=== PATIENT | female | born 1975 | race Caucasian/White ===

== ENCOUNTER 2020-07-08 06:42 | Outpatient (REF) | payer MEDICAID, OTHER, SELFPAY ==
[2020-07-08 08:49] LABS: MANUAL DIFF FLAG NO
[2020-07-08 08:54] LABS: Basophils Percent Auto 0.3 % (0-2); Eosinophils Absolute Auto 0.1 X10*3/uL (0.0-0.4); Eosinophils Percent Auto 1.5 % (0-4); Hematocrit 42.3 % (37-47); Hemoglobin 13.2 g/dl (12.0-16.0); Imm Gran Abs Auto 0.03 X10*3/uL (0.00-0.03); Imm Gran Pct Auto 0.4 % (0.0-0.4); Lymphocytes Absolute Auto 2.3 X10*3/uL (1.2-4.9); Lymphocytes Percent Auto 31.7 % (20-40); Mean Corpuscular HGB Conc 31.2 g/dl (31.0-35.0); Mean Corpuscular Hemoglobin 28.9 pg (27.0-33.0); Mean Corpuscular Volume 92.6 fL (80-98); Mean Platelet Volume 11.7 fL (9.4-12.3); Monocytes Absolute Auto 0.8 X10*3/uL (0.1-1.2); Monocytes Percent Auto 11.2 % (2-11); Neutrophils Percent Auto 54.9 % (45-73); Platelet Count 280 X10*3/uL (160-400); Red Blood Count 4.57 X10*6/uL (4.20-5.50); Red Cell Distribution Width 13.4 % (11.0-16.0); White Blood Count 7.3 X10*3/uL (4.8-10.8)
[2020-07-08 09:21] LABS: Alanine Aminotransferase 13 U/L (0-31); Alkaline Phosphatase 46 U/L (39-117); Anion Gap 13 (12-20); Aspartate Amino Transferase 17 U/L (5-31); Bilirubin Total 0.3 mg/dL (0.0-1.0); Blood Urea Nitrogen 15 mg/dL (9-16); Calcium 8.4 mg/dL (8.4-10.2); Carbon Dioxide 26 mmol/L (22-29); Chloride 105 mmol/L (96-108); Cholesterol 216 mg/dL; Estimated Glomerular Filt Rate > 60; Glucose Fasting 98 mg/dL (60-99); HDL Cholesterol 64 mg/dL; LDL Cholesterol Calculated 124 mg/dl; Potassium 4.1 mmol/l (3.3-5.1); Sodium 140 mmol/L (135-145); Total Protein 6.7 g/dL (6.5-8.0); Triglycerides 140 mg/dL
[2020-07-08 09:45] LABS: TSH reflex Free T4 3.74 mIU/mL (0.32-4.0); Vitamin D 25-OH Total 29.7 ng/mL (>30)
[2020-07-08 11:25] LABS: Erythrocyte Sedimentation Rate 5 MM/HR (0-20)
== END 2020-07-08 06:43 | disposition home or self-care (01) ==
LOC: HO.LAB 06:42
PROVIDERS: PCP Internal Medicine; Visit Provider Internal Medicine
DX: E78.00 Pure hypercholesterolemia, unspecified (principal); M79.7 Fibromyalgia; E55.9 Vitamin D deficiency, unspecified; E66.9 Obesity, unspecified
CPT/HCPCS: 36415; 80053; 80061; 82306; 84443; 85025; 85652

== ENCOUNTER 2020-08-13 08:53 | Outpatient (REF) | payer OTHER, SELFPAY ==
[2020-08-13 09:38] LABS: MANUAL DIFF FLAG NO
[2020-08-13 09:51] LABS: Basophils Percent Auto 0.5 % (0-2); Eosinophils Absolute Auto 0.2 X10*3/uL (0.0-0.4); Eosinophils Percent Auto 2.1 % (0-4); Hematocrit 40.5 % (37-47); Imm Gran Abs Auto 0.02 X10*3/uL (0.00-0.03); Imm Gran Pct Auto 0.3 % (0.0-0.4); Lymphocytes Absolute Auto 2.4 X10*3/uL (1.2-4.9); Lymphocytes Percent Auto 33.4 % (20-40); Mean Corpuscular HGB Conc 32.1 g/dl (31.0-35.0); Mean Corpuscular Volume 90.2 fL (80-98); Mean Platelet Volume 11.1 fL (9.4-12.3); Monocytes Absolute Auto 0.6 X10*3/uL (0.1-1.2); Monocytes Percent Auto 8.8 % (2-11); Neutrophils Percent Auto 54.9 % (45-73); Platelet Count 279 X10*3/uL (160-400); Red Blood Count 4.49 X10*6/uL (4.20-5.50); Red Cell Distribution Width 13.4 % (11.0-16.0); White Blood Count 7.3 X10*3/uL (4.8-10.8)
[2020-08-13 10:05] LABS: Glucose Urine UA NEG (NEG); Leukocyte Esterase Urine NEG (NEG); Nitrite Urine NEG (NEG); Specific Gravity - Urine 1.025 (1.005-1.025); Urine Blood TRACE (NEG); Urine Ketones NEG (NEG); Urine Protein NEG (NEG-TRACE)
[2020-08-13 10:16] LABS: Appearance Urine HAZY; Color Urine YELLOW
[2020-08-13 10:22] LABS: Alanine Aminotransferase 8 U/L (0-31); Albumin Level 3.8 g/dL (3.5-5.0); Alkaline Phosphatase 42 U/L (39-117); Anion Gap 12 (12-20); Aspartate Amino Transferase 13 U/L (5-31); Bilirubin Total 0.4 mg/dL (0.0-1.0); Blood Urea Nitrogen 16 mg/dL (9-16); Calcium 8.1 mg/dL (8.4-10.2); Carbon Dioxide 24 mmol/L (22-29); Chloride 106 mmol/L (96-108); Cholesterol 188 mg/dL; Estimated Glomerular Filt Rate > 60; Glucose Fasting 96 mg/dL (60-99); HDL Cholesterol 59 mg/dL; LDL Cholesterol Calculated 111 mg/dl; Potassium 4.5 mmol/l (3.3-5.1); Sodium 137 mmol/L (135-145); Total Protein 6.4 g/dL (6.5-8.0); Triglycerides 93 mg/dL
[2020-08-13 10:26] LABS: Mucus Urine 2+ /LPF; RBC Urine 0-2 /HPF (0); Squamous Epithelial Cell Urine 1+ /LPF; WBC Urine 0-2 /HPF (0-4)
[2020-08-13 10:36] LABS: Erythrocyte Sedimentation Rate 5 MM/HR (0-20)
[2020-08-13 10:44] LABS: TSH reflex Free T4 3.18 mIU/mL (0.32-4.0); Vitamin D 25-OH Total 38.8 ng/mL (>30)
== END 2020-08-13 08:54 | disposition home or self-care (01) ==
LOC: HO.LAB 08:53
PROVIDERS: PCP Internal Medicine; Visit Provider Internal Medicine
DX: M79.7 Fibromyalgia (principal); E78.00 Pure hypercholesterolemia, unspecified; E66.9 Obesity, unspecified; E55.9 Vitamin D deficiency, unspecified
CPT/HCPCS: 36415; 80053; 80061; 81001; 81003; 82306; 84443; 85025; 85652

== ENCOUNTER 2020-11-07 13:22 | Outpatient (REF) | payer OTHER, SELFPAY ==
--- NOTE | ~2020-11-07 | MM_ITS ---
EXAMINATION: MM SCREENING DIGITAL BREAST TOMOSYNTHESIS, BILATERAL CLINICAL INFORMATION: Screening. Asymptomatic. The lifetime risk of breast cancer based on the Tyrer-Cuzick Model is 10.4%. COMPARISON: Mammography: October 10, 2019 and October 04, 2018 TECHNIQUE: Digital breast tomosynthesis is performed in both the craniocaudal and mediolateral oblique views along with computer-aided detection (CAD). Synthesized 2D images are generated from the tomosynthesis. FINDINGS: The breasts are heterogeneously dense, which may obscure small masses (ACR BI-RADS breast composition Category c). There are no significant masses, abnormal calcifications, or other abnormalities. MM/MM tomosynthesis screening BI IMPRESSION: There are no significant changes from prior study. ASSESSMENT: BI-RADS 1: Negative RECOMMENDATION: Routine annual mammography screening. This patient's information was entered into a reminder system with a target due date for their next mammogram.
== END 2020-11-07 13:23 | disposition home or self-care (01) ==
LOC: HO.MAMMO 13:22
PROVIDERS: Visit Provider Internal Medicine
DX: Z12.31 Encounter for screening mammogram for malignant neoplasm of breast (principal)
CPT/HCPCS: 77063; 77067

== ENCOUNTER 2020-11-13 09:45 | Outpatient (REF) | payer OTHER, SELFPAY ==
--- NOTE | 2020-11-13 09:52 | EMG_ITS ---
This is a 45-year-old woman with bilateral lower extremity pain. PHYSICAL EXAMINATION: On examination, she is alert and oriented with normal intellectual functions. Her cranial nerves II through XII are normal. Muscle tone and strength are normal in all 4 extremities. Deep tendon reflexes symmetrical. Plantar responses are flexor. IMPRESSION: Rule out peripheral neuropathy, rule out lumbar radiculopathy. Nerve conduction EMG study: Normal electrodiagnostic study of both lower extremities. No evidence of generalized neuropathy or nerve entrapment. Normal EMG of the right L4-S1 innervated muscles. MD ARINA Tompkins/ROSE / [phone]
== END 2020-11-13 09:46 | disposition home or self-care (01) ==
LOC: HO.NEURO 09:45
PROVIDERS: Visit Provider Internal Medicine
DX: M79.604 Pain in right leg (principal); M79.605 Pain in left leg
CPT/HCPCS: 95885; 95912

== ENCOUNTER → 2021-01-21 09:43 | Outpatient (BNVA) | payer OTHER, SELFPAY | PROVIDERS: PCP Internal Medicine; Visit Provider Obstetrics & Gynecology ==

== ENCOUNTER 2021-03-06 07:44 | Outpatient (REF) | payer OTHER, SELFPAY ==
--- NOTE | ~2021-03-06 | XR_ITS ---
EXAMINATION: XR LUMBOSACRAL SPINE CLINICAL INFORMATION: M79.7 - Fibromyalgia COMPARISON: Radiographs lumbar spine 09/21/2019 TECHNIQUE: Three views of the lumbosacral spine. FINDINGS: There is normal lumbar segmentation with 5 nonrib-bearing lumbar vertebrae of normal height and normal lumbar lordosis. A gentle levocurvature is present similar to prior exam 2019. Bony mineralization is normal. There is no lumbar vertebral compression, spondylolisthesis, disc narrowing, or erosive changes. The SI joints and visualized sacrum are unremarkable. There are surgical clips again noted right upper quadrant abdomen likely from prior cholecystectomy. XR/XR lumbar spine 2-3V IMPRESSION: Unremarkable examination.
--- NOTE | ~2021-03-06 | XR_ITS ---
EXAMINATION: XR KNEE, RIGHT CLINICAL INFORMATION: M79.7 - Fibromyalgia COMPARISON: Radiographs right knee 09/21/2019 TECHNIQUE: Three views of the right knee. FINDINGS: No fracture, dislocation, destructive process. No suprapatellar effusion. Hoffa's fat pad appears normal. There is normal bony mineralization. No joint narrowing or erosive change or chondrocalcinosis. XR/XR knee RT 3V IMPRESSION: Normal right knee.
[2021-03-06 10:30] LABS: C Reactive Protein 0.28 mg/dL (< or = 0.50)
[2021-03-06 10:41] LABS: Rheumatoid Factor < 15.0 IU/mL (<15.0)
[2021-03-06 10:45] LABS: Thyroid Stimulating Hormone 2.01 uIU/mL (0.32-4.0)
[2021-03-06 11:43] LABS: Erythrocyte Sedimentation Rate 7 MM/HR (0-20)
[2021-03-08 00:11] LABS: ANA Titer 2 1:40 titer; Anti Nuclear Antibody Screen POSITIVE (NEGATIVE); Anti Nuclear Antibody Titer 1:40 titer
[2021-03-10 03:12] LABS: Vitamin D 25-OH, D2 <4 ng/mL; Vitamin D 25-OH, D3 26 ng/mL; Vitamin D 25-OH, Total 26 ng/mL (30-100)
[2021-03-10 17:17] LABS: Cyclic Citrullinated Peptide <16 UNITS
== END 2021-03-06 07:45 | disposition home or self-care (01) ==
LOC: HO.LAB 07:44
PROVIDERS: PCP Internal Medicine; Visit Provider Student in an Organized Health Care Education/Training Program
DX: M79.7 Fibromyalgia (principal)
CPT/HCPCS: 36415; 72100; 73562; 82306; 84443; 85652; 86038; 86039; 86140; 86200; 86431; 99202

== ENCOUNTER → 2021-04-16 11:59 | Outpatient (BNVA) | payer OTHER, SELFPAY | PROVIDERS: PCP Internal Medicine; Visit Provider Obstetrics & Gynecology ==

== ENCOUNTER 2021-04-17 07:42 | Outpatient (REF) | payer OTHER, SELFPAY ==
[2021-04-17 09:17] LABS: HCG Quantitative < 2 mIU/mL
[2021-04-18 13:51] LABS: Lutenizing Hormone 33.9 mIU/mL; Prolactin 7.3 ng/mL
== END 2021-04-17 07:43 | disposition home or self-care (01) ==
LOC: HO.LAB 07:42
PROVIDERS: PCP Internal Medicine; Visit Provider Obstetrics & Gynecology
DX: N91.2 Amenorrhea, unspecified (principal)
CPT/HCPCS: 36415; 83001; 83002; 84146; 84443; 84702

== ENCOUNTER → 2021-05-28 14:29 | Outpatient (BNVA) | payer OTHER, SELFPAY | PROVIDERS: PCP Internal Medicine; Visit Provider Obstetrics & Gynecology | DX: Z78.0 Asymptomatic menopausal state (principal) | CPT/HCPCS: 99212 ==

== ENCOUNTER 2021-06-17 09:30 | Outpatient (REF) | payer OTHER, SELFPAY ==
[2021-06-17 09:50] LABS: MANUAL DIFF FLAG NO
[2021-06-17 10:24] LABS: Basophils Percent Auto 0.4 % (0-2); Eosinophils Absolute Auto 0.1 X10*3/uL (0.0-0.4); Hematocrit 40.5 % (37-47); Hemoglobin 13.1 g/dl (12.0-16.0); Imm Gran Abs Auto 0.02 X10*3/uL (0.00-0.03); Imm Gran Pct Auto 0.3 % (0.0-0.4); Lymphocytes Absolute Auto 1.8 X10*3/uL (1.2-4.9); Lymphocytes Percent Auto 25.9 % (20-40); Mean Corpuscular HGB Conc 32.3 g/dl (31.0-35.0); Mean Corpuscular Hemoglobin 27.8 pg (27.0-33.0); Mean Platelet Volume 11.6 fL (9.4-12.3); Monocytes Absolute Auto 0.8 X10*3/uL (0.1-1.2); Monocytes Percent Auto 10.8 % (2-11); Neutrophils Absolute Auto 4.3 X10*3/uL (2.0-8.3); Neutrophils Percent Auto 60.6 % (45-73); Platelet Count 254 X10*3/uL (160-400); Red Blood Count 4.71 X10*6/uL (4.20-5.50); Red Cell Distribution Width 13.3 % (11.0-16.0)
[2021-06-17 10:30] LABS: Appearance Urine HAZY; Color Urine YELLOW; Glucose Urine UA NEG (NEG); Leukocyte Esterase Urine 1+ (NEG); Nitrite Urine NEG (NEG); Specific Gravity - Urine >= 1.030 (1.005-1.025); UACC Culture Trigger YES; Urine Blood TRACE (NEG); Urine Ketones NEG (NEG); Urine Protein TRACE MG/DL (NEG-TRACE)
[2021-06-17 10:35] LABS: Alanine Aminotransferase 35 U/L (0-31); Alkaline Phosphatase 75 U/L (39-117); Anion Gap 12 (12-20); Aspartate Amino Transferase 24 U/L (5-31); Bilirubin Total 0.4 mg/dL (0.0-1.0); Blood Urea Nitrogen 20 mg/dL (9-16); C Reactive Protein 0.42 mg/dL (< or = 0.50); Calcium 9.1 mg/dL (8.4-10.2); Carbon Dioxide 25 mmol/L (22-29); Chloride 107 mmol/L (96-108); Cholesterol 185 mg/dL; Estimated Glomerular Filt Rate > 60; Glucose Fasting 93 mg/dL (60-99); HDL Cholesterol 53 mg/dL; LDL Cholesterol Calculated 104 mg/dl; Potassium 4.7 mmol/L (3.3-5.1); Sodium 139 mmol/L (135-145); Total Protein 6.5 g/dL (6.5-8.0); Triglycerides 140 mg/dL
[2021-06-17 10:56] LABS: TSH reflex Free T4 3.91 uIU/mL (0.32-4.0)
[2021-06-17 10:57] LABS: Bacteria Urine TRACE /LPF; Mucus Urine 1+ /LPF; RBC Urine 0-2 /HPF (0); Squamous Epithelial Cell Urine 3+ /LPF
[2021-06-17 11:44] LABS: Erythrocyte Sedimentation Rate 7 MM/HR (0-20)
== END 2021-06-17 09:31 | disposition home or self-care (01) ==
LOC: HO.LAB 09:30
PROVIDERS: PCP Internal Medicine; Visit Provider Internal Medicine
DX: Z00.00 Encounter for general adult medical examination without abnormal findings (principal); N95.0 Postmenopausal bleeding; N84.1 Polyp of cervix uteri; M25.50 Pain in unspecified joint; E78.00 Pure hypercholesterolemia, unspecified; M79.7 Fibromyalgia
CPT/HCPCS: 36415; 57500; 80053; 80061; 81001; 84443; 85025; 85652; 86140; 87086; 88305; 99212

== ENCOUNTER → 2021-07-03 08:45 | Outpatient (BNVA) | payer OTHER, SELFPAY | PROVIDERS: PCP Internal Medicine; Visit Provider Nurse Practitioner Family | DX: M79.7 Fibromyalgia (principal) | CPT/HCPCS: 99212 ==

== ENCOUNTER 2021-07-30 09:50 | Outpatient (REF) | payer OTHER, SELFPAY ==
--- NOTE | ~2021-07-30 | US_ITS ---
EXAMINATION: US PELVIS CLINICAL INFORMATION: Postmenopausal bleeding COMPARISON: None TECHNIQUE: Ultrasound of the pelvis is performed using both transabdominal and transvaginal transducers along with Doppler. Transvaginal imaging is performed due to inadequate visualization transabdominally. FINDINGS: UTERUS: The uterus is anteverted, retroflexed and measures 11.5 cm in length, 4.2 cm in AP and 7.9 cm in transverse dimension. The uterus has a slight arcuate shape. The double wall endometrial thickness is 1.0 cm. The uterus is smooth in contour and has normal myometrial echogenicity. No visible fibroid. There are several nabothian cysts seen in the cervix. ADNEXA: Both ovaries are visualized. There is normal color flow to the adnexa. There is no ovarian torsion. There is no pelvic ascites or fluid collection. Right ovary measures 2.7 x 1.7 x 1.8 cm. Volume of 4.3 mL. Left ovary measures 2.9 x 2.2 x 3.7 cm. Volume 12.4 mL. There is an anechoic cyst measuring 1.3 x 0.9 x 1.1 cm. There is no echogenic free fluid. US/US pelvic and transvaginal IMPRESSION: Anteverted and retroflexed uterus with slightly arcuate shape. No focal lesion seen. Several nabothian cysts in the cervix. Simple cyst left ovary. Small amount of free fluid in the cul-de-sac.
== END 2021-07-30 09:51 | disposition home or self-care (01) ==
LOC: HO.US 09:50
PROVIDERS: PCP Internal Medicine; Visit Provider Obstetrics & Gynecology
DX: N95.0 Postmenopausal bleeding (principal)
CPT/HCPCS: 76830; 76856

== ENCOUNTER → 2021-08-13 12:25 | Outpatient (BNVA) | payer OTHER, SELFPAY | PROVIDERS: PCP Internal Medicine; Visit Provider Obstetrics & Gynecology | DX: N84.1 Polyp of cervix uteri (principal); N95.0 Postmenopausal bleeding | CPT/HCPCS: 99212 ==

== ENCOUNTER 2021-09-02 14:00 | Outpatient (RCR) | payer OTHER, SELFPAY ==
--- NOTE | 2021-08-27 08:49 | MHC.PT.EP ---
[facility] [place] [facility] [place] [facility] [place] [facility] [address] Vivienne Koo [address] [phone] F: [phone] F: [phone] F: [phone] F: [phone] Physical Therapy Plan of Care Date of Evaluation: Date of Surgery: Diagnosis: Dorsalgia Assessment: Pt is a 45 y/o female referred to PT for unspecified dorsalgia who presents with decreased tolerance for heavy HH chores, sitting, standing and walking for duration, as well as disturbed sleep secondary to generalized hip and trunk weakness, lethargic, sedentary lifestyle and mild trunk ROM restrictions. Pt is deemed an appropriate candidate to receive skilled PT in order to address her physical limitations to improve her functional ability. Frequency and Duration: The patient will be seen 2 x / wk x 4 ws. Short Term Goals: initiate HEP with evidence of compliance. Pt will report baseline pain with activity < 8/10; initial: Pt reports 8/10 at rest and 10/10 with activity. Detention Goals: I with HEP and light aerobic home program as indicated for fibromyalgia patients with generalized pain. Pt will report 1/4 disturbed night sleep d/t back pain; initial: 3/4 disturbed. (Kevin) Pt will report pain prevents me from walking long distances ; initial: pain prevents me from walking even long distances (Kevin) Treatment Plan: Modalities to reduce pain, spasms and effusion. Manual therapy to restore motion and function. Therapeutic exercise to improve strength and flexibility. Neuromuscular re-education for posture and balance. Therapeutic activities to return to functional activities of daily living. Electronically signed by: Dung Dia PT. Please sign and return to therapist. Thank you for your referral.
--- NOTE | 2022-03-26 08:52 | MHC.PT.DC ---
[facility] [place] Office [place] Office [place] Office [address] Vivienne Koo [address] [phone] F: [phone] F: [phone] F: [phone] F: [phone] Physical Therapy Discharge Report Diagnosis: Dorsalgia Date of Surgery: Date of Evaluation: 07/31/21 Date of Discharge: 03/26/22 Treatments to Date: 5 Cancellations to Date: 2 No Shows to Date: 2 Discharge Status: Patient Elected to Stop Visit Non-compliance Discharge Summary: 09/02: Improving komal for ther ex; some improvement in upper back comfort with shoulder flexion activities which were significantly limited against gravity; decreased general komal continues though komal a basic program well. Discussed talking about a home TENS unis with her MD may be appropriate as this is her greatest source of pain relief at this time. Issued yellow TB with forearm loops for HEP. Pt demonstrates continued discomfort with B shoulder flexion, decreased motivation to perform challenging exercises d/t discomfort or fear of discomfort, Pt reports Estim helps her Sx; 2 visits to DC anticipated as she awaits abdominal surgery next month. Electronically signed by: Dung Dia PT. Please sign and return to therapist. Thank you for your referral.
== END 2022-03-26 08:52 | disposition home or self-care (01) ==
LOC: HO.PTCHIC 14:00
PROVIDERS: PCP Internal Medicine; Visit Provider Nurse Practitioner Family
DX: M54.9 Dorsalgia, unspecified (principal)
CPT/HCPCS: 97014; 97110; 97140; 97161

== ENCOUNTER → 2021-09-17 13:24 | Outpatient (BNVA) | payer OTHER, SELFPAY | PROVIDERS: PCP Internal Medicine; Visit Provider Obstetrics & Gynecology | DX: Z01.818 Encounter for other preprocedural examination (principal); N95.0 Postmenopausal bleeding | CPT/HCPCS: 99212 ==

== ENCOUNTER 2021-09-19 08:47 | Day surgery (SDC) | payer OTHER, SELFPAY ==
[2021-09-12 12:53] VITALS: BMI 33.0
--- NOTE | 2021-09-18 08:25 | P.CONAN_ITS ---
Documented by User: Kaykay Ascencio NP 09/18/21 08:26 HPI - Anesthesia Eval Consult details Narrative: 45yo F for D&C Hysteroscopy possible polypectomy,possible myomectomy PMFSH Active Problems Active Problems: All Active Problems (Updated 06/17/21 @ 11:01 by Timothy Cisse MD) Endocervical polyp (Acute) Postmenopausal bleeding (Acute) Annual physical exam (Acute) Menopause (Acute) Amenorrhea (Acute) Well woman exam (Acute) Low back pain (Acute) Lower extremity pain, bilateral (Acute) Tinea corporis (Acute) Obesity (BMI 30-39.9) (Acute) Depression (Acute) Anxiety (Acute) Posttraumatic stress disorder (Acute) Insomnia (Acute) Fibromyalgia (Acute) Vitamin D deficiency (Acute) Pure hypercholesterolemia (Acute) Past Medical History Medical History Anxiety Depression Fibromyalgia Insomnia Low back pain Lower extremity pain, bilateral Obesity (BMI 30-39.9) Posttraumatic stress disorder Pure hypercholesterolemia Tinea corporis Vitamin D deficiency Family History Family History Father Alcohol abuse Mother Asthma Chronic mental illness Surgical History Surgical History H/O unilateral salpingectomy History of section History of cholecystectomy History of facial surgery Social History Social History Housing: Apartment Alcohol intake: never Patient Tobacco Use Status: Never used Tobacco e-Cigarette/Vaping Use: Never Used Second Hand Smoke Exposure: No Advance Directives: No Advance Directives Information Provided: Yes Advance Directives on File: No service: No Current occupational status: retired [employer] Allergies Allergy/AdvReac Type Severity Reaction Status Date / Time tramadol [From ULTRA] Allergy Severe ANAPHYLAXIS Verified 09/19/21 10:15 Home Medications Medication Instructions Recorded Confirmed Last Taken Type amitriptyline 100 mg tablet 100 mg PO BEDTIME 07/09/20 09/12/21 Unknown History hydroxyzine pamoate 25 mg capsule 25 mg PO TID 07/09/20 09/12/21 Unknown History sertraline 100 mg tablet 200 mg PO DAILY tab 07/09/20 09/12/21 Unknown History zolpidem 10 mg tablet 10 mg PO BEDTIME PRN 07/09/20 09/12/21 Unknown History Exam Exam Date and Time: September 18, 2021 0825 Height,Weight and Vital Signs: Height 5 ft 7 in Weight 95.708 kg Pertinent Lab Results Pertinent Lab Results: Laboratory Tests 06/17/21 06/17/21 09:48 09:48 WBC 7.0 Hgb 13.1 Hct 40.5 Plt Count 254 Sodium 139 Potassium 4.7 Chloride 107 Carbon Dioxide 25 BUN 20 H Creatinine 0.99 Assessment and Plan Assessment Anesthesia Assessment: Chart Reviewed Documented by User: Marissa Jordan MD 09/19/21 10:58 PMFSH Active Problems Active Problems: All Active Problems (Updated 06/17/21 @ 11:01 by Timothy Cisse MD) Endocervical polyp (Acute) Postmenopausal bleeding (Acute) Annual physical exam (Acute) Menopause (Acute) Amenorrhea (Acute) Well woman exam (Acute) Low back pain (Acute) Lower extremity pain, bilateral (Acute) Tinea corporis (Acute) Obesity (BMI 30-39.9) (Acute) Depression (Acute) Anxiety (Acute) Posttraumatic stress disorder (Acute) Insomnia (Acute) Fibromyalgia (Acute) Vitamin D deficiency (Acute) Pure hypercholesterolemia (Acute) Increased BMI Past Medical History Medical History Anxiety Depression Fibromyalgia Insomnia Low back pain Lower extremity pain, bilateral Obesity (BMI 30-39.9) Posttraumatic stress disorder Pure hypercholesterolemia Tinea corporis Vitamin D deficiency Family History Family History Father Alcohol abuse Mother Asthma Chronic mental illness Family history of problems with anesthesia: No Surgical History Surgical History H/O unilateral salpingectomy History of section History of cholecystectomy History of facial surgery History of Problems with Anesthesia: No Social History Social History Housing: Apartment Alcohol intake: never Patient Tobacco Use Status: Never used Tobacco e-Cigarette/Vaping Use: Never Used Second Hand Smoke Exposure: No Advance Directives: No Advance Directives Information Provided: Yes Advance Directives on File: No service: No Current occupational status: retired Meds Allergies Allergy/AdvReac Type Severity Reaction Status Date / Time tramadol [From ULTRAM] Allergy Severe ANAPHYLAXIS Verified 09/19/21 10:15 Home Medications Medication Instructions Recorded Confirmed Last Taken Type amitriptyline 100 mg tablet 100 mg PO BEDTIME 07/09/20 09/12/21 Unknown History hydroxyzine pamoate 25 mg capsule 25 mg PO TID 07/09/20 09/12/21 Unknown History sertraline 100 mg tablet 200 mg PO DAILY tab 07/09/20 09/12/21 Unknown History zolpidem 10 mg tablet 10 mg PO BEDTIME PRN 07/09/20 09/12/21 Unknown History Exam Height,Weight and Vital Signs: Height 5 ft 7 in Weight 95.708 kg Vital Signs Temp Pulse Resp BP Pulse Ox 09/19/21 10:01 98.2 F 57 16 132/83 100 Pertinent Lab Results Pertinent Lab Results: Laboratory Tests 06/17/21 06/17/21 09:48 09:48 WBC 7.0 Hgb 13.1 Hct 40.5 Plt Count 254 Sodium 139 Potassium 4.7 Chloride 107 Carbon Dioxide 25 BUN 20 H Creatinine 0.99 Lab Results 09/19/21 Range/Units 09:54 Urine Test NEGATIVE (NEGATIVE) Airway Mallampati Class: II TM Dist: >3cm Neck ROM: Full Loose/Missing/Broken Teeth: Yes (Missing molar top right) Heart: RRR Lungs: CTAB Assessment and Plan Assessment Anesthesia Assessment: Anesthesia Plan Discussed Final Anesthetic Review Family History of Problems with Anesthesia: No History of Problems with Anesthesia: No NPO: Yes ASA Class: II Final Preanesthetic Review: No Changes in Pt Med Stat, Meds/Allgs Chart Reviewed, Consent Obtained/Reviewed and Anes Risks/Benef Reviewed Patient Risk: Low Procedure Risk: Low Assessment/Block/Sedation in SS: Assess/Block/Sedation-SS Anesthetic Plan Anesthetic Plan: GA (Patient preference) Disposition: Standard PACU
[2021-09-19] VITALS (8 sets, daily range): BP systolic 109–132; BP diastolic 68–87; PULSE 54–70; RESP 16–18; TEMP 36.1–36.8; O2SAT 95–100
[2021-09-19 10:08] LABS: UPreg QC Valid YES; Urine Pregnancy NEGATIVE (NEGATIVE)
[2021-09-19] MEDS: Lactated Ringers 1,000 ML 100 ML IVCONT (10:15)
--- NOTE | 2021-09-19 10:54 | MHC.SHP ---
Pre-Procedural Eval Section A Date of Service: 09/19/21 The patient is an INPATIENT: No Changes since office visit: No Cold of Flu in the past 2 weeks, No New Medical Problems, No Changes in Medication and No Patient answered all questions The History & Physical has been completed within 30 days and I have reviewed it.: Yes Section B Chief Complaint: postmenopausal bleeding Allergies: Allergies Allergy/AdvReac Type Severity Reaction Status Date / Time tramadol [From ULTRAM] Allergy Severe ANAPHYLAXIS Verified 09/19/21 10:15 Plan Diagnosis/Plan: Unchanged I have reviewed the history and physical and performed a pertinent physical examination on my patient. No changes have occurred unless specified.
--- NOTE | 2021-09-19 12:33 | P.BOP_ITS ---
Brief Operative Note Date of Service: 09/19/21 Pre-op diagnosis: postmenopausal bleeding Post-op diagnosis: same ( normal endometrial cavity) Procedure: Hysteroscopy D&C, Polypectomy Surgeon: Timothy Cisse MD Anesthesia: MAC Was an Corrosion Engineer used for this Procedure?: No Estimated blood loss (mL): 0 Pathology: other (Endometrial Scrapping) Condition: stable Disposition: PACU
--- NOTE | 2021-09-19 12:34 | P.OP_ITS ---
Operative Note Operative Note Date of Service: 09/19/21 Narrative: Preop Diagnosis: Post Menopausal bleeding Operation: Diagnostic Hysteroscopy, Dilataion & Curettage Post Op Diagnosis: Normal endometrial cavity QBL: Minimal Anesthesia: MAC Surgeon: Timohty Cisse MD Machine Learning Intern: None Complication: None Pathology: Endometrial Scrapings Procedure: The patient was put in the dorsal lithotomy position, scrubbed, and draped in the usual manner. A sterile speculum was inserted in the patient's vagina. The anterior lip of the cervix was grasped with a single tooth tenaculum. The cervix was dilated up to 5 mm, then the scope was inserted in the patient's uterus. Inspection revealed Normal endometrial cavity. The Myosure Reach device was used; . At the end of the procedure, all instruments were taken out of the patient uterine and vaginal cavity. The single tooth tenaculum was removed and homeostasis was assured using pressure,. The patient tolerated the procedure well and was transferred to the PACU in a stable condition.
== END 2021-09-19 14:45 | disposition home or self-care (01) ==
PROVIDERS: PCP Internal Medicine; Visit Provider Obstetrics & Gynecology
PROC: 0UDB8ZZ Extraction of Endometrium, Via Natural or Artificial Opening Endoscopic (ICD-10-PCS; CPT 58558; principal; 2021-09-19 11:40)
DX: N95.0 Postmenopausal bleeding (principal); F41.8 Other specified anxiety disorders; F43.10 Post-traumatic stress disorder, unspecified; E78.00 Pure hypercholesterolemia, unspecified; M79.7 Fibromyalgia; G47.00 Insomnia, unspecified; E55.9 Vitamin D deficiency, unspecified; M54.50 Low back pain, unspecified; E66.9 Obesity, unspecified; Z68.33 Body mass index [BMI] 33.0-33.9, adult; Z79.899 Other long term (current) drug therapy; Z88.8 Allergy status to other drugs, medicaments and biological substances; Z90.49 Acquired absence of other specified parts of digestive tract
CPT/HCPCS: 58558; 81025; 88305; J1885; J2250; J2405; J3010

== ENCOUNTER → 2021-10-06 11:18 | Outpatient (BNVA) | payer OTHER, SELFPAY | PROVIDERS: Visit Provider Obstetrics & Gynecology ==

== ENCOUNTER 2021-10-22 14:16 | Emergency (ER) | payer OTHER, SELFPAY ==
[2021-10-22 14:49] VITALS: BP 125/64; BP 140/100; PULSE 76; PULSE 98; RESP 18; TEMP 36.5; O2SAT 97; O2SAT 98; BMI 31.3
--- NOTE | 2021-10-22 15:01 | ED.DENTAL ---
HPI - Dental/Oral General Chief complaint: Dental/Oral Stated complaint: BLEEDING FROM TOOTH EXTRACTION,THINNERS UNK Time Seen by Provider: 10/22/21 14:56 Source: patient and EMS Mode of arrival: EMS Limitations: language barrier (Serbian-speaking) History of Present Illness HPI Narrative: 46-year-old female who is now status post dental extraction possibly her 3rd molar right upper aspect presenting to the ED via EMS with complaints of bleeding with clots from the extraction site that started prior to arrival while she was at [employer] paying for the stuff that she had just bought. She reports that she was seen at [facility] on [address] by Dr[address] Chapa the oral surgeon and there was no complications. She reports that she did not fall or have any injuries and she did not smoke or drink from a straw. She denies any other complaints or concerns at this time. Related Data Home Medications Medication Instructions Recorded Confirmed amitriptyline 100 mg tablet 100 mg PO BEDTIME 07/09/20 09/12/21 hydroxyzine pamoate 25 mg capsule 25 mg PO TID 07/09/20 09/12/21 sertraline 100 mg tablet 200 mg PO DAILY tab 07/09/20 09/12/21 zolpidem 10 mg tablet 10 mg PO BEDTIME PRN 07/09/20 09/12/21 Previous Rx's Medication Instructions Recorded clotrimazole 1 % topical cream 1 applic TOPICAL BID 14 Days #45 g 07/09/20 (Lotrimin AF (clotrimazole)) cholecalciferol (vitamin D3) 50 50 mcg PO DAILY 90 Days #90 cap 06/13/21 mcg (2,000 unit) capsule naproxen 500 mg tablet 500 mg PO BID PRN 30 Days #60 tab 06/13/21 diazepam 5 mg tablet 5 mg PO TID PRN 30 Days #90 tab 10/01/21 Allergies Allergy/AdvReac Type Severity Reaction Status Date / Time tramadol [From [facility]] Allergy Severe ANAPHYLAXIS Verified 09/19/21 10:15 Review of Systems Review of Systems: Constitutional : No Fever, No Chills, No changes in PO intake, No difficulty speaking, no recent dental procedure, no heat or cold intolerance while eating, no recent face trauma, ENT/Mouth : + Dental pain with bleeding, No Sore throat, No Jaw pain, No throat swelling, No swallowing difficulty, no change in voice, No facial swelling, no drooling, no trismus, no bleeding, no lacerations, no tongue swelling, gum swelling, Eyes: No Eye Pain, No periorbital Swelling Cardiovascular : No Chest Pain, No SOB Respiratory : No Cough, No Sputum, No Wheezing, No Smoke Exposure, No Dyspnea Gastrointestinal : No Nausea, No Vomiting, No Diarrhea Genitourinary : No Dysuria Musculoskeletal : No Myalgias Skin : No rash, no facial swelling or redness, Neuro : No Weakness, No Numbness, No Headache Yes all other systems are reviewed and are negative [facility] Past Medical History Attestation statement: The following information was validated with the patient. Medical History Anxiety Depression Fibromyalgia Insomnia Low back pain Lower extremity pain, bilateral Obesity (BMI 30-39.9) Posttraumatic stress disorder Pure hypercholesterolemia Tinea corporis Vitamin D deficiency Surgical History H/O unilateral salpingectomy History of section History of cholecystectomy History of facial surgery Family History Family History Father Alcohol abuse Mother Asthma Chronic mental illness Social History Social History Housing: Apartment Alcohol intake: never Patient Tobacco Use Status: Never used Tobacco e-Cigarette/Vaping Use: Never Used Second Hand Smoke Exposure: No Advance Directives: No Advance Directives Information Provided: No Patient : No service: No Current occupational status: retired Physical Exam Vital Signs: Vital Signs: Last Vital Signs Temp 97.7 F 10/22/21 14:49 Pulse 76 10/22/21 14:49 Resp 18 10/22/21 14:49 BP 125/64 10/22/21 14:49 Pulse Ox 97 10/22/21 14:49 BMI result Body Mass Index 31.3 vital signs have been reviewed as normal and appeared to be correct. Blood pressure normal. Heart rate normal. Respiration rate normal. Temperature normal. Oxygen saturation normal. Appearance: Alert. Oriented X3. No acute distress. Head: Normal external exam. Normocephalic. Atraumatic. Eyes: PERRLA. EOMI. Conjunctiva and sclera normal. Eyelids normal. ENT: EAC normal. TM's Normal. Pharynx normal. Uvula midline. Moist mucous membranes. No trismus noted. No drooling noted. No muffled voice noted. Dentition: To the 3rd molar right upper aspect patient has and extracted 2 with bleeding from the site with clots. Gingival within normal limits. No fluctuance. Not consistent with peritonsillar abscess. Not consistent with dental abscess. No salivary duct obstruction noted. Neck: Normal inspection. Neck supple. FROM. No adenopathy. Thyroid Normal. No meningeal signs. No neck mass noted. Trachea midline. CVS: Normal heart rate and rhythm. Heart sound normal. No murmurs noted. Pulses normal throughout. Respiratory: No respiratory distress. Painless inspiration. Breath sounds normal. No wheezes/rales/rhonchi noted. Chest nontender. No accessory muscle usage noted or decreased air movement noted. Back: Full range of motion noted. Skin: Skin warm and dry. Normal skin color. Normal skin turgor. No rashes/lesions/lacerations noted. Extremities:Extremities exhibit normal range of motion. Extremities nontender. Neuro: Oriented X 3. No motor deficit. No sensory deficit. Reflexes normal. Course Course Course Narrative: 3:30pm - 46-year-old female who is now status post dental extraction possibly her 3rd molar right upper aspect presenting to the ED via EMS with complaints of bleeding with clots from the extraction site that started prior to arrival while she was at [employer] paying for the stuff that she had just bought. She reports that she was seen at [facility] on [address] Dr[address] Chapa the oral surgeon and there was no complications. She reports that she did not fall or have any injuries and she did not smoke or drink from a straw. She denies any other complaints or concerns at this time. On exam patient is bleeding from the dental extraction site with clots. We placed Surgicel in the bleeding is now controlled. I spoke to the oral surgeon Dr. Chapa reported that he can see her today if not she will have to follow up tomorrow morning. Therefore we are trying to get the patient arrived as she does not have a ride at this time and the taxi reports that they will take approximately 1 hour. [facility] - Dental/Oral Medical Records Attestation: I reviewed the patient's medical records. Discharge Plan Discharge Clinical Impression: Oral bleeding, Pain, dental Patient Disposition: Home, Self-Care Prescriptions: No Action diazepam 5 mg tablet 5 mg PO TID PRN (Reason: anxiety) 30 Days Qty: 90 0RF amitriptyline 100 mg tablet 100 mg PO BEDTIME 0RF zolpidem 10 mg tablet 10 mg PO BEDTIME PRN (Reason: Insomnia) 0RF sertraline 100 mg tablet 200 mg PO DAILY 0RF hydroxyzine pamoate 25 mg capsule 25 mg PO TID 0RF clotrimazole [Lotrimin AF (clotrimazole)] 1 % cream 1 applic topical BID 14 Days Qty: 45 1RF cholecalciferol (vitamin D3) 50 mcg (2,000 unit) capsule 50 mcg PO DAILY 90 Days Qty: 90 3RF naproxen 500 mg tablet 500 mg PO BID PRN (Reason: pain) 30 Days Qty: 60 1RF Rx Instructions: Take with food Referrals: Charles Way MD [Primary Care Provider] - 2 days Print Language: Serbian
== END 2021-10-22 16:32 | disposition home or self-care (01) ==
PROVIDERS: Emergency Provider Internal Medicine; PCP Internal Medicine
DX: K91.840 Postprocedural hemorrhage of a digestive system organ or structure following a digestive system procedure (principal); K08.89 Other specified disorders of teeth and supporting structures
CPT/HCPCS: 99282; 99283

== ENCOUNTER 2021-11-10 13:45 | Outpatient (REF) | payer OTHER, SELFPAY ==
--- NOTE | ~2021-11-10 | MM_ITS ---
EXAMINATION: MM SCREENING DIGITAL BREAST TOMOSYNTHESIS, BILATERAL CLINICAL INFORMATION: Screening. Asymptomatic. The lifetime risk of breast cancer based on the Tyrer-Cuzick Model is 8%. COMPARISON: Mammography: 11/07/2020, 10/10/2019, 10/04/2018 TECHNIQUE: Digital breast tomosynthesis is performed in both the craniocaudal and mediolateral oblique views along with computer-aided detection (CAD). Synthesized 2D images are generated from the tomosynthesis. FINDINGS: There are scattered areas of fibroglandular density (ACR BI-RADS breast composition Category b). There are no significant masses, abnormal calcifications, or other abnormalities. There is fine fibronodular parenchymal pattern. No developing density. Incidental intramammary node again seen posterior upper outer right breast. No significant changes. MM/MM tomosynthesis screening BI IMPRESSION: No mammographic evidence of malignancy. ASSESSMENT: BI-RADS 2: Benign RECOMMENDATION: Routine annual mammography screening. This patient's information was entered into a reminder system with a target due date for their next mammogram.
== END 2021-11-10 13:46 | disposition home or self-care (01) ==
LOC: HO.MAMMO 13:45
PROVIDERS: Visit Provider Internal Medicine
DX: Z12.31 Encounter for screening mammogram for malignant neoplasm of breast (principal)
CPT/HCPCS: 77063; 77067

== ENCOUNTER 2021-11-27 14:13 | Outpatient (REF) | payer OTHER, SELFPAY ==
--- NOTE | ~2021-11-27 | XR_ITS ---
EXAMINATION: XR CHEST CLINICAL INFORMATION: Syncope and collapse COMPARISON: None TECHNIQUE: 2 views of the chest were obtained. FINDINGS: The cardiac and mediastinal contours are normal. There is a 4 mm left upper lobe nodule. This may represent a granuloma. The lungs are otherwise clear. There is no pleural effusion or pneumothorax. Bony structures are unremarkable. XR/XR chest 2V IMPRESSION: No evidence for acute disease in the chest. 4 mm left upper lobe nodule, question representing a granuloma.
--- NOTE | 2021-11-27 14:21 | ECG_ITS ---
Test Reason : R55 Blood Pressure : / mmHG Vent. Rate : 060 BPM Atrial Rate : 060 BPM P-R Int : 136 ms QRS Dur : 086 ms QT Int : 414 ms P-R-T Axes : 033 058 048 degrees QTc Int : 414 ms Normal sinus rhythm Normal ECG No previous ECGs available Referred By: Terry Raza Electronically Signed By:SORIN HEREDIA
[2021-11-27 14:50] LABS: MANUAL DIFF FLAG NO
[2021-11-27 15:05] LABS: Basophils Absolute Auto 0.1 X10*3/uL (0.0-0.2); Basophils Percent Auto 0.9 % (0-2); Eosinophils Absolute Auto 0.3 X10*3/uL (0.0-0.4); Eosinophils Percent Auto 4.9 % (0-4); Hematocrit 40.7 % (37.0-47.0); Imm Gran Abs Auto 0.01 X10*3/uL (0.00-0.03); Imm Gran Pct Auto 0.1 % (0.0-0.4); Lymphocytes Absolute Auto 2.9 X10*3/uL (1.2-4.9); Lymphocytes Percent Auto 42.9 % (20-40); Mean Corpuscular HGB Conc 31.9 g/dl (31.0-35.0); Mean Corpuscular Hemoglobin 27.8 pg (27.0-33.0); Mean Platelet Volume 10.8 fL (9.4-12.3); Monocytes Absolute Auto 0.8 X10*3/uL (0.1-1.2); Monocytes Percent Auto 12.1 % (2-11); Neutrophils Absolute Auto 2.6 x10*3/uL (2.0-8.3); Neutrophils Percent Auto 39.1 % (45-73); Platelet Count 320 X10*3/uL (160-400); Red Blood Count 4.68 X10*6/uL (4.20-5.50); Red Cell Distribution Width 13.4 % (11.0-16.0); White Blood Count 6.8 X10*3/uL (4.8-10.8)
[2021-11-27 15:37] LABS: Alanine Aminotransferase 57 U/L (0-31); Albumin Level 4.4 g/dL (3.5-5.0); Alkaline Phosphatase 91 U/L (39-117); Anion Gap 10 (12-20); Aspartate Amino Transferase 35 U/L (5-31); Bilirubin Total 0.5 mg/dL (0.0-1.0); Blood Urea Nitrogen 19 mg/dL (9-16); Calcium 10.1 mg/dL (8.4-10.2); Carbon Dioxide 29 mmol/L (22-29); Chloride 106 mmol/L (96-108); Estimated Glomerular Filt Rate > 60; Glucose Random 84 mg/dL (60-115); Potassium 4.1 mmol/L (3.3-5.1); Sodium 141 mmol/L (135-145); Total Protein 7.2 g/dL (6.5-8.0)
[2021-11-27 15:55] LABS: Appearance Urine HAZY; Color Urine YELLOW; Glucose Urine UA NEG (NEG); Leukocyte Esterase Urine 1+ (NEG); Nitrite Urine NEG (NEG); Specific Gravity - Urine >= 1.030 (1.005-1.025); UACC Culture Trigger YES; Urine Blood 3+ (NEG); Urine Ketones NEG (NEG); Urine Protein 1+ MG/DL (NEG-TRACE)
[2021-11-27 15:58] LABS: TSH reflex Free T4 1.24 uIU/mL (0.32-4.0)
[2021-11-27 16:08] LABS: Bacteria Urine 1+ /LPF; Squamous Epithelial Cell Urine 1+ /LPF
== END 2021-11-27 14:14 | disposition home or self-care (01) ==
LOC: HO.LAB 14:13
PROVIDERS: PCP Internal Medicine; Visit Provider Nurse Practitioner Family
DX: R55 Syncope and collapse (principal); R42 Dizziness and giddiness; I10 Essential (primary) hypertension
CPT/HCPCS: 36415; 71046; 80053; 81001; 84443; 85025; 87086; 93005

== ENCOUNTER 2021-12-05 14:32 | Outpatient (REF) | payer OTHER, SELFPAY ==
[2021-12-08 04:09] LABS: HBS Num1 11.17 mIU/mL (0-7.99); HBc Num1 0.11 S/CO (0.00-0.79); Hepatitis B Core Antibody Nonreactive (Nonreactive)
[2021-12-08 04:20] LABS: HBsAGNum1 0.19 S/CO (0.00-0.99); Hepatitis B Surface Antigen Negative (Negative)
[2021-12-08 04:50] LABS: HBS Num2 11.26 mIU/mL (0-7.99); HBS Num3 11.71 mIU/mL (0-7.99); ~Hepatitis B Surface Antibody GRAYZONE (Nonreactive)
[2021-12-09 04:46] LABS: Mumps Virus IgG Antibody >300.00 AU/mL; Rubella IgG Antibody 6.13 Index; Rubeola IgG (Measles) >300.00 AU/mL; Varicella IgG Antibody <135.00 index
== END 2021-12-05 14:33 | disposition home or self-care (01) ==
LOC: HO.LAB 14:32
PROVIDERS: PCP Internal Medicine; Visit Provider Internal Medicine
DX: Z01.84 Encounter for antibody response examination (principal)
CPT/HCPCS: 36415; 86704; 86706; 86735; 86762; 86765; 86787; 87340

== ENCOUNTER 2022-02-11 07:41 | Outpatient (REF) | payer OTHER, SELFPAY ==
--- NOTE | ~2022-02-11 | CT_ITS ---
EXAMINATION: CT CHEST WITHOUT CONTRAST CLINICAL INFORMATION: Pulmonary nodule COMPARISON: Previous chest x-ray October 2021 TECHNIQUE: Multidetector volumetric CT imaging of the chest was done. Axial MIP volume rendering provided. Sagittal and coronal reformatted images were obtained. This CT examination was performed using dose optimization techniques as appropriate, variously including the following: *Automated exposure control *Adjustment of mA and/or kV according to patient size (this includes techniques or standardized protocols for targeted exams where dose is matched to indication/reason for exam; i.e. extremities or head) *Use of iterative reconstruction technique DLP: 146 mGy-cm FINDINGS: LUNGS: There is a 4 mm calcified left upper lobe nodule axial image 105 series 7 probably representing a calcified granuloma. The lungs are otherwise clear. No evidence of emphysema, interstitial lung disease or bronchiectasis is seen. No endobronchial or endotracheal lesion. MEDIASTINUM: There are small left hilar calcifications probably representing calcified lymph nodes. No enlarged lymph nodes are seen. The mediastinum is otherwise normal. PLEURA: There is no pleural effusion. No pleural mass or thickening. AXILLA: No lymphadenopathy. UPPER ABDOMEN: The gallbladder has been removed. The left kidney is not seen. OSSEOUS STRUCTURES: Unremarkable. CT/CT chest wo con IMPRESSION: 4 mm calcified left upper lobe nodule and a small left hilar calcifications suggestive of small calcified lymph nodes. Findings are consistent with old granulomatous disease. No CT imaging follow-up recommended. Fleischner guidelines were followed.
== END 2022-02-11 07:42 | disposition home or self-care (01) ==
LOC: HO.CT 07:41
PROVIDERS: PCP Internal Medicine; Visit Provider Nurse Practitioner Family
DX: R91.1 Solitary pulmonary nodule (principal)
CPT/HCPCS: 71250

== ENCOUNTER 2022-03-04 11:01 | Outpatient (REF) | payer OTHER, SELFPAY ==
--- NOTE | ~2022-03-04 | XR_ITS ---
EXAMINATION: XR SHOULDER, RIGHT CLINICAL INFORMATION: Pain. COMPARISON: None TECHNIQUE: AP external rotation, Grashey, scapular Y, and axillary views of the right shoulder. FINDINGS: Mild subchondral erosive changes right AC joint. Minimal inferior glenohumeral joint loose body is seen as well. No visible acute fracture, spurring, dislocation or soft tissue calcification. XR/XR shoulder RT min 2V IMPRESSION: Mild degenerative changes right AC joint and right glenohumeral joint.
== END 2022-03-04 11:02 | disposition home or self-care (01) ==
LOC: HO.XRAY 11:01
PROVIDERS: PCP Internal Medicine; Visit Provider Nurse Practitioner Family
DX: M25.511 Pain in right shoulder (principal); M79.7 Fibromyalgia; M54.50 Low back pain, unspecified; G89.29 Other chronic pain
CPT/HCPCS: 73030; 99212

== ENCOUNTER 2022-04-16 14:01 | Emergency (ER) | payer MEDICAID, OTHER, SELFPAY ==
[2022-04-16 15:07] VITALS: BP 144/84; PULSE 60; RESP 18; TEMP 36.7; O2SAT 98; BMI 31.3
== END 2022-04-16 19:20 | disposition left against medical advice (07) ==
PROVIDERS: Emergency Provider Emergency Medicine; PCP Internal Medicine
DX: S61.216A Laceration without foreign body of right little finger without damage to nail, initial encounter (principal); W27.4XXA Contact with kitchen utensil, initial encounter; Y93.G1 Activity, food preparation and clean up; Y92.000 Kitchen of unspecified non-institutional (private) residence as the place of occurrence of the external cause; Y99.9 Unspecified external cause status
CPT/HCPCS: 99281; 99283

== ENCOUNTER 2022-04-30 13:00 | Outpatient (RCR) | payer MEDICAID, OTHER, SELFPAY ==
[2022-04-09 13:00] VITALS: BP 123/79; PULSE 67; O2SAT 95
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
--- NOTE | 2022-07-28 10:46 | MHC.PT.DC ---
[facility] [place] Office [place] Office [place] Office [address] Vivienne Koo [address] [phone] F: [phone] F: [phone] F: [phone] F: [phone] Physical Therapy Discharge Report Diagnosis: PAIN IN RIGHT SHOULDER Date of Surgery: Date of Evaluation: 04/09/22 Date of Discharge: 07/28/22 Treatments to Date: 4 Cancellations to Date: 3 No Shows to Date: 4 Discharge Status: Visit Non-compliance Discharge Summary: Pt HAD POOR ATTENDANCE AND DECR CARRYOVER W HEP. SHE DID NOT MEET HER PT GOALS AND WAS NOT REASSESSED DUE TO POOR ATTENDANCE W SCHED APPTS. Electronically signed by: VARSHA JAIME,PT Please sign and return to therapist. Thank you for your referral.
== END 2022-07-28 10:46 | disposition home or self-care (01) ==
LOC: HO.PT 13:00
PROVIDERS: PCP Internal Medicine; Visit Provider Nurse Practitioner Family
DX: M25.511 Pain in right shoulder (principal)
CPT/HCPCS: 97110; 97140; 97162; 97530

== ENCOUNTER 2022-05-13 10:49 | Outpatient (REF) | payer MEDICAID, OTHER, SELFPAY ==
--- NOTE | ~2022-05-13 | US_ITS ---
EXAMINATION: US PELVIS CLINICAL INFORMATION: Hypertrophy of uterus. COMPARISON: Previous exams most recent July 2021 TECHNIQUE: Ultrasound of the pelvis is performed using both transabdominal and transvaginal transducers along with Doppler. Transvaginal imaging is performed due to inadequate visualization transabdominally. Exam is limited due to body habitus. FINDINGS: The uterus is anteverted and retroflexed and measures 11.7 x 4.8 x 5.9 cm in dimension. No focal uterine lesion is seen. Endometrium is not not well visualized. Endometrial thickness is estimated at 0.4 cm. The right ovary is seen transabdominally only. The right ovary measures 2.8 x 2 x 2.8 cm and is unremarkable. The left ovary is not seen. There is no fluid in the pelvis. US/US pelvic and transvaginal IMPRESSION: Limited exam. Normal-appearing uterus and right ovary. Left ovary not seen.
== END 2022-05-13 10:50 | disposition home or self-care (01) ==
LOC: HO.US 10:49
PROVIDERS: Visit Provider Obstetrics & Gynecology
DX: N85.2 Hypertrophy of uterus (principal)
CPT/HCPCS: 76830; 76856

== ENCOUNTER → 2022-05-27 09:46 | Outpatient (BNVA) | payer MEDICAID, OTHER, SELFPAY | PROVIDERS: PCP Internal Medicine; Visit Provider Obstetrics & Gynecology | DX: N85.2 Hypertrophy of uterus (principal) | CPT/HCPCS: 99212 ==

== ENCOUNTER 2022-06-02 07:42 | Outpatient (REF) | payer MEDICAID, OTHER, SELFPAY ==
[2022-06-02 07:59] LABS: MANUAL DIFF FLAG NO
[2022-06-02 08:33] LABS: Basophils Percent Auto 0.4 % (0-2); Eosinophils Absolute Auto 0.3 X10*3/uL (0.0-0.4); Eosinophils Percent Auto 3.5 % (0-4); Hematocrit 41.6 % (37.0-47.0); Hemoglobin 13.5 g/dl (12.0-16.0); Imm Gran Abs Auto 0.02 X10*3/uL (0.00-0.03); Imm Gran Pct Auto 0.3 % (0.0-0.4); Lymphocytes Absolute Auto 2.7 X10*3/uL (1.2-4.9); Mean Corpuscular HGB Conc 32.5 g/dl (31.0-35.0); Mean Corpuscular Hemoglobin 27.8 pg (27.0-33.0); Mean Corpuscular Volume 85.6 fL (80.0-98.0); Mean Platelet Volume 10.8 fL (9.4-12.3); Monocytes Absolute Auto 0.8 X10*3/uL (0.1-1.2); Monocytes Percent Auto 10.4 % (2-11); Neutrophils Absolute Auto 3.5 x10*3/uL (2.0-8.3); Neutrophils Percent Auto 48.4 % (45-73); Platelet Count 272 X10*3/uL (160-400); Red Blood Count 4.86 X10*6/uL (4.20-5.50); Red Cell Distribution Width 13.1 % (11.0-16.0); White Blood Count 7.2 X10*3/uL (4.8-10.8)
[2022-06-02 08:56] LABS: Alanine Aminotransferase 21 U/L (0-31); Albumin Level 4.4 g/dL (3.5-5.0); Alkaline Phosphatase 85 U/L (39-117); Anion Gap 15 (12-20); Aspartate Amino Transferase 23 U/L (5-31); Bilirubin Total 0.4 mg/dL (0.0-1.0); Blood Urea Nitrogen 17 mg/dL (9-16); Calcium 9.7 mg/dL (8.4-10.2); Carbon Dioxide 26 mmol/L (22-29); Chloride 101 mmol/L (96-108); Cholesterol 208 mg/dL; Estimated Glomerular Filt Rate 59; Glucose Fasting 97 mg/dL (60-99); HDL Cholesterol 64 mg/dL; LDL Cholesterol Calculated 132 mg/dl; Potassium 4.1 mmol/L (3.3-5.1); Sodium 138 mmol/L (135-145); Triglycerides 63 mg/dL
[2022-06-07 15:16] LABS: Vitamin D 25-OH, D2 <4 ng/mL; Vitamin D 25-OH, D3 31 ng/mL; Vitamin D 25-OH, Total 31 ng/mL (30-100)
== END 2022-06-02 07:43 | disposition home or self-care (01) ==
LOC: HO.LAB 07:42
PROVIDERS: Absent Provider Nurse Practitioner Family; PCP Internal Medicine; Visit Provider Internal Medicine
DX: E78.00 Pure hypercholesterolemia, unspecified (principal); F32.9 Major depressive disorder, single episode, unspecified; F41.9 Anxiety disorder, unspecified; R91.1 Solitary pulmonary nodule; I10 Essential (primary) hypertension
CPT/HCPCS: 36415; 80053; 80061; 82306; 85025

== ENCOUNTER → 2022-06-16 14:38 | Outpatient (BNVA) | payer OTHER, SELFPAY | PROVIDERS: PCP Internal Medicine; Referring Provider Internal Medicine; Visit Provider Internal Medicine | DX: Z12.11 Encounter for screening for malignant neoplasm of colon (principal) | CPT/HCPCS: 99202 ==

== ENCOUNTER 2022-09-08 14:10 | Emergency (ER) | payer OTHER, SELFPAY ==
[2022-09-08 14:34] VITALS: BP 127/88; PULSE 71; RESP 18; TEMP 36.6; O2SAT 98; BMI 32.3
--- NOTE | 2022-09-08 14:34 | ED.SKABFB ---
HPI - Skin/Abscess/Foreign Bdy General Chief complaint: General Medical <MARGARITA Velazquez - Last Filed: 09/08/22 14:38> Stated complaint: Allergic reaction <MARGARITA Velazquez - Last Filed: 09/08/22 14:38> Time Seen by Provider: 09/08/22 15:37 <MARGARITA Velazquez - Last Filed: 09/08/22 14:38> Source: patient <Leslie Barber CNP - Last Filed: 09/08/22 16:33> Mode of arrival: ambulatory <Leslie Barber CNP - Last Filed: 09/08/22 16:33> Limitations: language barrier (Dutch-speaking medical laboratory technicians utilized) <Leslie Barber CNP - Last Filed: 09/08/22 16:33> History of Present Illness HPI narrative: Patient is a 46-year-old female who presents to emergency department for evaluation of a rash. She reports a pruritic rash of onset 3-4 days ago. When she takes Benadryl the rash resolves, but they do tend to reappear. They have been diffusely throughout her body to her arms chest back abdomen and legs. Denies any known contact allergens, new soaps/detergents/lotions/cream, recent use of new medications, new foods. Denies any history of this having occurred in the past. Denies any recent viral infection. Denies fevers, chills chest pain, shortness breath, difficulty breathing hoarseness of the voice, arthralgias. <Leslie Barber CNP - Last Filed: 09/08/22 16:33> Related Data Home medications: Home Medications Medication Instructions Recorded Confirmed amitriptyline 100 mg tablet 100 mg PO BEDTIME 07/09/20 06/16/22 hydroxyzine pamoate 25 mg capsule 25 mg PO TID 07/09/20 06/16/22 sertraline 100 mg tablet 200 mg PO DAILY 07/09/20 06/16/22 Previous Rx's Medication Instructions Recorded clotrimazole 1 % topical cream 1 applic topical BID rash 2 weeks 07/09/20 (Lotrimin AF (clotrimazole)) #45 grams cholecalciferol (vitamin D3) 50 50 mcg PO DAILY 90 days #90 caps 06/13/21 mcg (2,000 unit) capsule meclizine 25 mg tablet 25 mg PO DAILY PRN motion sickness 11/27/21 #10 tabs diazepam 5 mg tablet 5 mg PO TID PRN anxiety 30 days 04/14/22 #90 tabs naproxen 500 mg tablet 500 mg PO BID PRN pain 30 days #60 06/16/22 tabs loratadine 10 mg tablet 10 mg PO DAILY PRN allergic 09/08/22 symptoms #30 tabs prednisone 20 mg tablet 40 mg PO DAILY #8 tabs 09/08/22 <MARGARITA Velazquez - Last Filed: 09/08/22 14:38> Allergies/Adverse reactions: Allergies Allergy/AdvReac Type Severity Reaction Status Date / Time tramadol [From [facility]] Allergy Severe ANAPHYLAXIS Verified 06/16/22 14:52 <MARGARITA Velazquez - Last Filed: 09/08/22 14:38> Review of Systems Review of Systems: Skin: Positive rashes noted in HPI <Leslie Barber CNP - Last Filed: 09/08/22 16:33> Yes all other systems are reviewed and are negative <Leslie Barber CNP - Last Filed: 09/08/22 16:33> PMFSH Past Medical History Attestation statement: The following information was validated with the patient. <Leslie Barber CNP - Last Filed: 09/08/22 16:33> Source: old records reviewed <Leslie Barber CNP - Last Filed: 09/08/22 16:33> Medical History: Medical History Anxiety Depression Fibromyalgia Insomnia Low back pain Lower extremity pain, bilateral Obesity (BMI 30-39.9) Posttraumatic stress disorder Pure hypercholesterolemia Tinea corporis Vitamin D deficiency <MARGARITA Velazquez - Last Filed: 09/08/22 14:38> Surgical History: Surgical History H/O unilateral salpingectomy History of section History of cholecystectomy History of facial surgery <MARGARITA Velazquez - Last Filed: 09/08/22 14:38> Family History Family History: Family History Father Alcohol abuse Mother Asthma Chronic mental illness Mental health disorder <MARGARITA Velazquez - Last Filed: 09/08/22 14:38> Social History Social History: Social History Housing: Apartment Alcohol intake: never Patient Tobacco Use Status: Never used Tobacco e-Cigarette/Vaping Use: Never Used Second Hand Smoke Exposure: No Advance Directives: No Advance Directives Information Provided: Yes service: No Current occupational status: retired Cognitive needs: No Hearing needs: No Vision needs: Yes (Glasses) <MARGARITA Velazquez - Last Filed: 09/08/22 14:38> Physical Exam Vital Signs: Vital Signs: Last Vital Signs Temp 98 F 09/08/22 14:34 Pulse 71 09/08/22 14:34 Resp 18 09/08/22 14:34 BP 127/88 09/08/22 14:34 Pulse Ox 98 09/08/22 14:34 BMI result Body Mass Index 32.3 <MARGARITA Velazquez - Last Filed: 09/08/22 14:38> Vital Signs: Last Vital Signs Temp 98 F 09/08/22 14:34 Pulse 71 09/08/22 14:34 Resp 18 09/08/22 14:34 BP 127/88 09/08/22 14:34 Pulse Ox 98 09/08/22 14:34 BMI result Body Mass Index 32.3 <Leslie Barber CNP - Last Filed: 09/08/22 16:33> Appearance: Alert.?Oriented to person, place and time. No acute distress.?Normal affect. Eyes: Pupils equal, round and reactive to light.? ENT: Pharynx normal, no hypertrophy, uvula midline.?? Neck: Normal inspection.? Neck supple.?? CVS: Heart sounds normal. Normal heart rate and rhythm.? Pulses normal.?? Respiratory: No respiratory distress.? Lung sounds clear to auscultation bilaterally?? Abdomen: Soft and non-tender. Normoactive bowel sounds. ? Skin: Skin warm and dry.? Normal skin color.? Single urticarial lesion present to the right upper extremity? Extremities: No lower extremity edema.? Neuro: Moves all extremities spontaneously. Sensation intact bilaterally. Ambulates with normal steady gait. <Leslie Barber CNP - Last Filed: 09/08/22 16:33> Course Course Course Narrative: RME - 46 yo female presenting with diffuse itchy body rash for the last 3-4 days. Showed pictures of hives on extremities, unknown cause. No respiratory compromise or facial involvement. VSS. stable to go back to waiting <MARGARITA Velazquez - Last Filed: 09/08/22 14:38> Medical Decision Making Medical Decision Making MDM Narrative: Patient is a 46-year-old female presents to the emergency department for evaluation of a reoccurring rash. Pruritic in nature, upon physical examination has a single urticarial lesion to the right upper extremity, patient has shown pictures of previous rash lesions that appear consistent with urticaria. No respiratory involvement, no distress. No anaphylaxis or angioedema. Speaking clear full sentences. No identifiable allergen based on history. Lesions do resolve with the use of Benadryl but this makes her drowsy. Discussed plan of care for discharge home, use of loratadine daily despite whether symptoms are present, burst therapy of prednisone sent to her pharmacy. Advised to contact her primary care provider to arrange for a follow-up visit for persistent symptoms, advised that she may require referral to ice resurfacing machine operators should this persist. Discussed worrisome signs and symptoms that would warrant re-evaluation in the emergency department. All questions answered. She is stable for discharge. <Leslie Barber CNP - Last Filed: 09/08/22 16:33> Differential Diagnosis Differential Diagnoses: The differential diagnosis associated with the presentation includes (Idiopathic urticaria, drug reaction, viral exanthem) <Leslie Barber CNP - Last Filed: 09/08/22 16:33> Prescription Management I considered prescription management with: Other (Loratadine, prednisone) <Leslie Barber CNP - Last Filed: 09/08/22 16:33> Discharge Plan Discharge Clinical Impression: Urticaria <MARGARITA Velazquez - Last Filed: 09/08/22 14:38> Patient Disposition: Home, Self-Care <MARGARITA Velazquez - Last Filed: 09/08/22 14:38> Instructions: Urticaria (ED) <MARGARITA Velazquez - Last Filed: 09/08/22 14:38> Additional Instructions: Take prednisone daily for the next 4 days as prescribed. In addition, take Claritin daily whether hives are present or not. As we discussed, your rash appears consistent with hives which can be due to an allergy, viral infection, or idiopathic/of unknown cause. You will need to contact your primary care provider to arrange for a follow-up visit, at that time they can help you establish care with an ice resurfacing machine operators if this problem continues. You may return to emergency department with any new or worsening symptoms or concerns such as throat swelling, hoarseness of your voice, chest pain, shortness of breath, difficulty breathing. <MARGARITA Velazquez - Last Filed: 09/08/22 14:38> Prescriptions: New prednisone 20 mg tablet 40 mg PO DAILY Qty: 8 0RF loratadine 10 mg tablet 10 mg PO DAILY PRN (Reason: allergic symptoms) Qty: 30 0RF No Action diazepam 5 mg tablet 5 mg PO TID PRN (Reason: anxiety) 30 Days Qty: 90 0RF amitriptyline 100 mg tablet 100 mg PO BEDTIME sertraline 100 mg tablet 200 mg PO DAILY hydroxyzine pamoate 25 mg capsule 25 mg PO TID clotrimazole [Lotrimin AF (clotrimazole)] 1 % cream 1 applic topical BID 14 Days Qty: 45 1RF cholecalciferol (vitamin D3) 50 mcg (2,000 unit) capsule 50 mcg PO DAILY 90 Days Qty: 90 3RF naproxen 500 mg tablet 500 mg PO BID PRN (Reason: pain) 30 Days Qty: 60 1RF Rx Instructions: Take with food meclizine 25 mg tablet 25 mg PO DAILY PRN (Reason: motion sickness) Qty: 10 0RF <MARGARITA Velazquez - Last Filed: 09/08/22 14:38> Referrals: Charles Way MD [Primary Care Provider] - <MARGARITA Velazquez - Last Filed: 09/08/22 14:38>
== END 2022-09-08 16:36 | disposition home or self-care (01) ==
PROVIDERS: Emergency Provider Emergency Medicine Emergency Medical Services; PCP Internal Medicine
DX: L50.9 Urticaria, unspecified (principal)
CPT/HCPCS: 99282; 99283

== ENCOUNTER → 2022-11-20 07:02 | Outpatient (BNVA) | payer OTHER, SELFPAY | PROVIDERS: PCP Internal Medicine; Visit Provider Nurse Practitioner Family | DX: M79.7 Fibromyalgia (principal); M19.011 Primary osteoarthritis, right shoulder | CPT/HCPCS: 99212 ==

== ENCOUNTER 2022-12-03 10:46 | Outpatient (REF) | payer OTHER, SELFPAY ==
--- NOTE | ~2022-12-03 | MM_ITS ---
EXAMINATION: MM SCREENING DIGITAL BREAST TOMOSYNTHESIS, BILATERAL CLINICAL INFORMATION: Screening. Asymptomatic. The lifetime risk of breast cancer based on the Tyrer-Cuzick Model is 8%. COMPARISON: Mammography: November 10, 2021 and studies dating back to October 04, 2018 TECHNIQUE: Digital breast tomosynthesis is performed in both the craniocaudal and mediolateral oblique views along with computer-aided detection (CAD). Synthesized 2D images are generated from the tomosynthesis. FINDINGS: The breasts are heterogeneously dense, which may obscure small masses (ACR BI-RADS breast composition Category c). There are no significant masses, abnormal calcifications, or other abnormalities. MM/MM tomosynthesis screening BI IMPRESSION: No significant changes from prior exam. ASSESSMENT: BI-RADS 1: Negative RECOMMENDATION: Routine annual mammography screening. This patient's information was entered into a reminder system with a target due date for their next mammogram.
== END 2022-12-03 10:47 | disposition home or self-care (01) ==
LOC: HO.MAMMO 10:46
PROVIDERS: PCP Internal Medicine; Visit Provider Internal Medicine
DX: Z12.31 Encounter for screening mammogram for malignant neoplasm of breast (principal)
CPT/HCPCS: 77063; 77067

== ENCOUNTER 2022-12-24 14:00 | Outpatient (RCR) | payer OTHER, SELFPAY ==
--- NOTE | 2022-12-01 15:23 | MHC.PT.EP ---
[facility] [place] Office [place] Office [place] Office [address] [phone] F: [phone] F: [phone] F: [phone] F: [phone] Physical Therapy Plan of Care Date of Evaluation: Date of Surgery: Diagnosis: RIGHT shoulder adhesive capsulitis Assessment: Patient is a 47 y.o. female who is referred to PT by Dr. Charles Way MD, with Dx of RIGHT shoulder adhesive capsulitis. PT diagnosis is consistent with MD Dx, questionable supraspinatus involvement underlying the adhesive capsulitis. Patient impairments include pain, limited ROM, and weakness. Patient current functional limitations are difficulty sleeping on R side, lifting heavy object, lifting overhead, reaching behind her back, putting on undergarments, Patient will benefit from skilled PT to address aforementioned impairments and functional limitations to meet established goals. Frequency and Duration: The patient will be seen 2x/week for 4 weeks Short Term Goals: 2 weeks Patient demonstrates consistency and independence with HEP to self manage symptoms. Patient presents with increased shoulder ER 60 degrees to reach behind back for upper body dressing. Net Trainer Goals: 4 weeks Patient presents with increased R shoulder flexion 155 to be able to reach overhead to high shelves. Patient presents with increased R shoulder flexion strength 4+/5 to be able to lift grocery bags. Treatment Plan: Modalities to reduce pain, spasms and effusion. Manual therapy to restore motion and function. Therapeutic exercise to improve strength and flexibility. Neuromuscular re-education for posture and balance. Therapeutic activities to return to functional activities of daily living. Electronically signed by: Kaden Diaz, PT, DPT Please sign and return to therapist. Thank you for your referral.
--- NOTE | 2023-01-29 14:41 | MHC.PT.DC ---
[facility] [place] Office [place] Office [place] Office [address] Vivienne Koo [address] [phone] F: [phone] F: [phone] F: [phone] F: [phone] Physical Therapy Discharge Report Diagnosis: RIGHT shoulder adhesive capsulitis Date of Surgery: Date of Evaluation: 12/01/22 Date of Discharge: 01/29/23 Treatments to Date: 5 Cancellations to Date: 3 No Shows to Date: Discharge Status: Independent with HEP Discharge Summary: Patient was last seen in PT on 12/24/22. She showed independence with HEP. She ceased attending on her own accord and is discharged from PT at this time. Electronically signed by: Kaden Diaz, PT, DPT Please sign and return to therapist. Thank you for your referral.
== END 2023-01-29 14:41 | disposition home or self-care (01) ==
LOC: HO.PT 14:00
PROVIDERS: PCP Internal Medicine; Visit Provider Internal Medicine
DX: M75.01 Adhesive capsulitis of right shoulder (principal)
CPT/HCPCS: 97035; 97110; 97140; 97161

== ENCOUNTER 2023-01-28 07:40 | Outpatient (REF) | payer OTHER, SELFPAY ==
[2023-01-28 07:54] LABS: MANUAL DIFF FLAG NO
[2023-01-28 08:19] LABS: Basophils Absolute Auto 0.1 X10*3/uL (0.0-0.2); Basophils Percent Auto 0.8 % (0-2); Eosinophils Absolute Auto 0.3 X10*3/uL (0.0-0.4); Eosinophils Percent Auto 5.3 % (0-4); Hematocrit 42.8 % (37.0-47.0); Hemoglobin 13.6 g/dl (12.0-16.0); Imm Gran Abs Auto 0.01 X10*3/uL (0.00-0.03); Imm Gran Pct Auto 0.2 % (0.0-0.4); Lymphocytes Absolute Auto 2.4 X10*3/uL (1.2-4.9); Mean Corpuscular HGB Conc 31.8 g/dl (31.0-35.0); Mean Corpuscular Hemoglobin 28.4 pg (27.0-33.0); Mean Corpuscular Volume 89.4 fL (80.0-98.0); Mean Platelet Volume 11.3 fL (9.4-12.3); Monocytes Absolute Auto 0.6 X10*3/uL (0.1-1.2); Monocytes Percent Auto 9.3 % (2-11); Neutrophils Absolute Auto 2.6 x10*3/uL (2.0-8.3); Neutrophils Percent Auto 44.4 % (45-73); Platelet Count 257 X10*3/uL (160-400); Red Blood Count 4.79 X10*6/uL (4.20-5.50); Red Cell Distribution Width 12.9 % (11.0-16.0); White Blood Count 5.9 X10*3/uL (4.8-10.8)
[2023-01-28 09:15] LABS: Alanine Aminotransferase 18 U/L (0-31); Albumin Level 4.1 g/dL (3.5-5.0); Alkaline Phosphatase 79 U/L (39-117); Anion Gap 11 (12-20); Aspartate Amino Transferase 17 U/L (5-31); Bilirubin Total 0.9 mg/dL (0.0-1.0); Blood Urea Nitrogen 21 mg/dL (9-16); Calcium 9.4 mg/dL (8.4-10.2); Carbon Dioxide 25 mmol/L (22-29); Chloride 109 mmol/L (96-108); Cholesterol 193 mg/dL; Erythrocyte Sedimentation Rate 5 MM/HR (0-20); Estimated Glomerular Filt Rate > 60; Glucose Fasting 96 mg/dL (60-99); HDL Cholesterol 62 mg/dL; LDL Cholesterol Calculated 117 mg/dl; Potassium 4.2 mmol/L (3.3-5.1); Sodium 141 mmol/L (135-145); Total Protein 6.6 g/dL (6.5-8.0); Triglycerides 71 mg/dL
[2023-01-28 09:16] LABS: Appearance Urine Clear; Color Urine Yellow; Glucose Urine UA Negative (Negative); Leukocyte Esterase Urine Small (1+) (Negative); Nitrite Urine Negative (Negative); PH 5.5 (5.0-9.0); Specific Gravity - Urine >= 1.030 (1.005-1.025); UMIC TRIGGER UACC YES; Urine Blood Negative (Negative); Urine Ketones Negative (Negative); Urine Protein Trace mg/dL (Neg-Trace)
[2023-01-28 09:24] LABS: Bacteria Urine None Seen (None Seen); UACC Culture Trigger YES
[2023-01-28 09:32] LABS: TSH reflex Free T4 0.95 uIU/mL (0.32-4.0)
== END 2023-01-28 07:41 | disposition home or self-care (01) ==
LOC: HO.LAB 07:40
PROVIDERS: PCP Internal Medicine; Visit Provider Internal Medicine
DX: Z00.00 Encounter for general adult medical examination without abnormal findings (principal); M79.7 Fibromyalgia; E78.00 Pure hypercholesterolemia, unspecified
CPT/HCPCS: 36415; 80053; 80061; 81001; 84443; 85025; 85652; 87086

== ENCOUNTER 2023-02-23 15:09 | Outpatient (AMB) | payer OTHER, SELFPAY ==
[2023-02-23 15:26] VITALS: BP 100/80; PULSE 75; O2SAT 98; BMI 31.5
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
== END 2023-02-23 16:11 | disposition home or self-care (01) ==
PROVIDERS: PCP Internal Medicine; Visit Provider Internal Medicine
DX: E78.00 Pure hypercholesterolemia, unspecified (principal); E55.9 Vitamin D deficiency, unspecified; M79.7 Fibromyalgia; M75.01 Adhesive capsulitis of right shoulder; M79.604 Pain in right leg; M79.605 Pain in left leg; G47.00 Insomnia, unspecified; F43.10 Post-traumatic stress disorder, unspecified; F41.9 Anxiety disorder, unspecified; F32.9 Major depressive disorder, single episode, unspecified
CPT/HCPCS: 99214

== ENCOUNTER 2023-04-08 08:53 | Outpatient (AMB) | payer OTHER, SELFPAY ==
[2023-04-08 08:59] VITALS: BP 125/90; PULSE 63; TEMP 36.3; O2SAT 98
--- NOTE | 2023-04-08 08:59 | MHC.OFFVIS ---
Intake Vital Signs 04/08/23 08:59 Weight 194 lb 10.691 oz BP 125/90 H Blood Pressure Location Rt brachial Pulse 63 Pulse Source Pulse Oximeter Temp 97.3 F Temp Source Tympanic Pulse Oximetry (%) 98 Oxygen Delivery Method Room Air Intake Visit Reasons: OA rt shoulder/? inj Subsea Engineer Required: Yes Subsea Engineer Language: Meal Packer Name: [id number] Information Interpreted: clinical only Accompanied by: Self / Same As Patient Allergies tramadol [From ULTRAM] Allergy (Severe, Verified 04/08/23 09:01) ANAPHYLAXIS Medication List - Last Reconciled 04/08/23 by Rosaura Suggs RN amitriptyline 100 mg PO BEDTIME cholecalciferol (vitamin D3) 50 mcg PO DAILY 90 days clotrimazole 1% (Lotrimin AF (clotrimazole)) 1 appl topical BID 2 weeks diazepam 5 mg PO TID PRN 30 days hydroxyzine pamoate 25 mg PO TID loratadine 10 mg PO DAILY PRN naproxen 500 mg PO BID PRN 30 days sertraline 200 mg PO DAILY HPI HPI Comments History of Present Illness Details The patient returns for evaluation of her fibromyalgia. She says joints are fairly stable with exception of the right shoulder which continues to bother her. There is pain with lying on it at night and lifting the arm up to the horizontal. She does take occasional naproxen for it as well as diazepam. She had been on sertraline and amitriptyline for the fibromyalgia and anxiety but decided to stop them for now. She thought she was taking too many medications. Other areas of pain include the hands, forearms, lower back, hips and knees. [facility] Medical History Anxiety Depression Fibromyalgia Insomnia Low back pain Lower extremity pain, bilateral Obesity (BMI 30-39.9) Posttraumatic stress disorder Pure hypercholesterolemia Tinea corporis Vitamin D deficiency Surgical History H/O unilateral salpingectomy History of section History of cholecystectomy History of facial surgery Family History Father Alcohol abuse Mother Asthma Chronic mental illness Mental health disorder Social History Housing: Apartment Alcohol intake: never Patient Tobacco Use Status: Never used Tobacco e-Cigarette/Vaping Use: Never Used Second Hand Smoke Exposure: No service: No Current occupational status: retired Cognitive needs: No Hearing needs: No Vision needs: Yes (Glasses) Female Reproductive History Menstrual Age of Menarche: 11 Review of Systems Const Details: Negative for appetite change, weight change, fever, chills, malaise and fatigue Eyes Details: Occasional headache. Negative for vision change, dry eyes and dizziness Skin/Breast Details: Negative for itching, rash, hives, Raynaud's symptoms, sun sensitivity, and skin cancer Neuro Details: Negative for epilepsy, palsy, stroke, changes in speech, tingling and weakness Psych Details: Negative for anxiety, depression and stress Endo Details: Negative for polyuria and polydypsia Reinaldo/Lymph Details: Negative for excessive bruising or bleeding. Physical Exam Vital Signs: Last Vital Signs Temp 97.3 F 04/08/23 08:59 Pulse 63 04/08/23 08:59 BP 125/90 H 04/08/23 08:59 Pulse Ox 98 04/08/23 08:59 Oxygen Delivery Method Room Air 04/08/23 08:59 APPEARANCE: Patient in no acute distress EYES no redness, pupils equal and reactive to light, eyelids normal EARS: External ear normal, canal clear and tympanic membrane normal. NOSE/SINUS: Airflow through both nares, no nasal discharge, no bleeding THROAT: Oral mucosa moist, no ulcerations NECK: No thyromegaly or masses, no adenopathy, trachea midline. HEART: Regulrar rhythm, S1-S2 heard, no murmurs, rubs or gallops. LUNG: Clear to percussion and auscultation ABD: Normal bowel sounds, no organomegaly, masses or tenderness. EXTREMITIES: No edema, no calf tenderness, normal peripheral pulses. NEURO: Oriented and alert x3. No focal weakness. Reflexes symmetric. Gait normal. SKIN: No inflammatory or neoplastic lesions. Normal color and turgor JOINT EXAM:.?? Cervical Spine:.? Full range of motion without pain; no tenderness. Thoracic Spine:.? No scoliosis.? No tenderness on palpation. Lumbar Spine:.? Alignment normal.? Full range of motion without pain, no tenderness. Chest Wall:.? No tenderness, swelling, increased warmth or erythema. Hands:.? Normal pain-free range of motion without tenderness, swelling, increased warmth or erythema. Able to make a full fist and has a good interventional nurse strength. Wrists:.? Normal pain-free range of motion without tenderness, swelling, increased warmth or erythema. Elbows:. Normal pain-free range of motion without tenderness, swelling, increased warmth or erythema. Shoulders:.?? Full range of motion without pain. No tenderness, weakness, swelling, increased warmth or erythema. Hips:.? Full range of motion without pain. Hip bursa:.? No tenderness. Knees:.?? Normal pain-free range of motion without tenderness, swelling, increased warmth or erythema.? There is no effusion or crepitation Ankles:.? Normal pain-free range of motion without tenderness, swelling, increased warmth or erythema. Feet:.? Normal pain-free range of motion without tenderness, swelling, increased warmth or erythema. Tender points:.? No tenderness to digital palpation at the occiput, trapezius, second rib, lateral epicondyle, knees, greater trochanter and gluteal area bilaterally. ? Results Reviewed Results Reviewed: [address] [address] XRay Report Signed Patient: Quin Myrick I MR#: [id number] : 1975 Acct:[id number] Age/Sex: 46 / F Date: 03/04/[address]: Claudia Diaz NP Ordering Physician: Claudia Diaz NP Date of Service: 03/04/22 Procedure(s): XR shoulder RT min 2V Accession Number(s): [id number] cc: Claudia Diaz NP~ EXAMINATION: XR SHOULDER, RIGHT CLINICAL INFORMATION: Pain.? COMPARISON: None? TECHNIQUE: AP external rotation, Grashey, scapular Y, and axillary views of the right shoulder. FINDINGS: Mild subchondral erosive changes right AC joint. Minimal inferior glenohumeral joint loose body is seen as well. No visible acute fracture, spurring, dislocation or soft tissue calcification. XR/XR shoulder RT min 2V IMPRESSION: Mild degenerative changes right AC joint and right glenohumeral joint. Dictated By: Magdaleno Coker MD Assessment & Plan Assessment & Plan (1) Osteoarthritis of right shoulder: Code(s): M19.011 - Primary osteoarthritis, right shoulder (2) Fibromyalgia: Code(s): M79.7 - Fibromyalgia Plan The fibromyalgia symptoms seem to be tolerated for now. I told her I thought it was not [place] to stop the sertraline if she still gets panic attacks as the sertraline may help her avoid such attacks. I think she could continue with the as needed use of naproxen for the shoulder pain. Given the chronicity of this shoulder pain, this is likely OA from her old injury. I think an orthopedic opinion might be in order so we will set up a consultation. She was encouraged to continue with light aerobic activity to help with functioning while she has fibromyalgia. At this point we do not prescribe her medications so I do not think she needs to have have a scheduled follow-up. She could come back in the future if symptoms worsen. Orders: Referrals Orthopedics Referral M19.011 - Primary osteoarthritis, right shoulder Coding Level of Care Code Est Pt Level 3 (18557) Diagnoses Osteoarthritis of right shoulder M19.011 Fibromyalgia M79.7
== END 2023-04-08 10:10 | disposition home or self-care (01) ==
PROVIDERS: PCP Internal Medicine; Visit Provider Internal Medicine Rheumatology
DX: M19.011 Primary osteoarthritis, right shoulder (principal); M79.7 Fibromyalgia
CPT/HCPCS: 99213

== ENCOUNTER → 2023-04-08 08:53 | Outpatient (BNVA) | payer OTHER, SELFPAY | PROVIDERS: PCP Internal Medicine; Visit Provider Internal Medicine Rheumatology | DX: M19.011 Primary osteoarthritis, right shoulder (principal); M79.7 Fibromyalgia | CPT/HCPCS: 99212 ==

== ENCOUNTER 2023-05-05 10:13 | Outpatient (AMB) | payer OTHER, SELFPAY ==
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
[2023-05-05 10:18] VITALS: BMI 30.5
== END 2023-05-05 10:59 | disposition home or self-care (01) ==
PROVIDERS: PCP Internal Medicine; Visit Provider Physical Medicine & Rehabilitation
DX: S46.009A Unspecified injury of muscle(s) and tendon(s) of the rotator cuff of unspecified shoulder, initial encounter (principal); G56.01 Carpal tunnel syndrome, right upper limb
CPT/HCPCS: 99204

== ENCOUNTER → 2023-05-05 10:13 | Outpatient (BNVA) | payer OTHER, SELFPAY | PROVIDERS: PCP Internal Medicine; Visit Provider Physical Medicine & Rehabilitation ==

== ENCOUNTER 2023-05-27 | Outpatient (REF) | payer OTHER, SELFPAY | END 2023-05-27 00:01 | LOC: CF | PROVIDERS: PCP Internal Medicine; Visit Provider Obstetrics & Gynecology | DX: G56.01 Carpal tunnel syndrome, right upper limb (principal) | CPT/HCPCS: 99396 ==

== ENCOUNTER 2023-05-27 13:55 | Outpatient (AMB) | payer OTHER, SELFPAY ==
[2023-05-27 14:25] VITALS: BP 112/62; BMI 30.7
--- NOTE | 2023-05-27 14:25 | MHC.OFFVIS ---
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 No complaints. Last Pap/HPV was negative in 12/16 Last Mammogram was BI-RADS 1 in 12/20 No previous screen colonoscopy PFSH Medical History Carpal tunnel syndrome of right wrist Rotator cuff injury Low back pain Lower extremity pain, bilateral Tinea corporis Obesity (BMI 30-39.9) Depression Anxiety Posttraumatic stress disorder Insomnia Fibromyalgia Vitamin D deficiency Pure hypercholesterolemia Surgical History History of facial surgery H/O unilateral salpingectomy History of cholecystectomy History of section Family History Father Alcohol abuse Mother Asthma Chronic mental illness Mental health disorder Social History Housing: Apartment Alcohol intake: never Patient Tobacco Use Status: Never used Tobacco e-Cigarette/Vaping Use: Never Used Second Hand Smoke Exposure: No service: No Current occupational status: retired Cognitive needs: No Hearing needs: No Vision needs: Yes (Glasses) Female Reproductive History Menstrual Age of Menarche: 11 control method: none Total pregnancies: 1 Full term: 1 Number of Living Children: 1 Date of last pap smear: 12/01/18 (negative) Date of Mammogram: 12/03/22 Review of Systems Const All systems reviewed & are unremarkable except as noted in HPI and below Card Reports as per HPI Resp Reports as per HPI GI Reports as per HPI and Reports no additional complaints Reports as per HPI Physical Exam Vital Signs: Last Vital Signs BP 112/62 05/27/23 14:25 BMI result Body Mass Index 30.7 Const General: cooperative, healthy appearing and comfortable Chest Chest palpation & inspection: normal inspection of the chest and normal palpation of entire chest wall Breast/axilla inspection: normal inspection of the breasts and normal inspection of the axillae Breast/axilla palpation: normal palpation of the breasts, normal palpation of the axillae and no axillary lymphadenopathy Resp Effort & Inspection: normal respiratory effort Auscultation: clear to auscultation bilaterally Percussion: percussion normal Cardio Palpation: normal PMI Rate: regular rate Rhythm: regular rhythm Heart sounds: no murmurs and no rubs Peripheral pulses: Peripheral pulses 2+ throughout GI Inspection: Yes normal to inspection Palpation (GI): Soft to palpation, nontender, no guarding, not rigid and No hepatosplenomegaly present Percussion: Yes normal to percussion Auscultation: normal bowel sounds Rectal Exam - Female: deferred General: Yes bladder normal to palpation External Female Exam: No lesion Speculum Exam - Vagina: normal appearance of the vagina, normal palpation, normal vaginal discharge and not erythematous Speculum Exam - Cervix: normal appearance of the cervix and normal palpation Bimanual exam- vagina & uterus: normal bimanual exam, normal palpation, uterine size normal, bladder normal to palpation, consistency normal and normal palpation Bimanual Exam- Adnexa, other: normal adnexae, no masses and no tenderness Assessment & Plan Assessment & Plan (1) Well woman exam: Code(s): Z01.419 - Encounter for gynecological examination (general) (routine) without abnormal findings Plan: Cotesting not indicated this year. Instructions given the patient to schedule next screening Mammogram in 12/21. Counseled the patient about the recommended dietary allowance of 1000 mg of Calcium & 600 IU of vitamin D. The patient was instructed to perform monthly self-breast exams and to schedule an annual exam in a year; Will refer to GI for screening colonoscopy All questions answered and the patient verbalized understanding. Instructed the patient to schedule annual exam in a year Orders: Referrals Gastroenterology Referral Z12.11 - Encounter for screening for malignant neoplasm of colon Coding Level of Care Code Est Pt Prev Care 40-64y(12668) Diagnoses Well woman exam Z01.419
== END 2023-05-27 14:55 | disposition home or self-care (01) ==
PROVIDERS: Visit Provider Obstetrics & Gynecology
DX: Z01.419 Encounter for gynecological examination (general) (routine) without abnormal findings (principal)
CPT/HCPCS: 99396

== ENCOUNTER 2023-06-16 12:12 | Outpatient (REF) | payer OTHER, SELFPAY ==
--- NOTE | ~2023-06-16 | XR_ITS ---
EXAMINATION: XR PELVIS XR SACRUM CLINICAL INFORMATION: Low back pain. COMPARISON: Lumbar spine 09/21/2019. TECHNIQUE: Lateral and 2 AP views of the sacrum. AP view of the pelvis. FINDINGS: Pelvis: Degenerative changes in the imaged lower lumbar spine. Moderate degenerative changes in bilateral hips with joint space narrowing and hypertrophic change. Sacrum: Moderate degenerative changes in the bilateral sacroiliac joints with joint space narrowing and sclerosis. Facet arthritis in the imaged lower lumbar spine. Spondylosis in the lower lumbar spine with redemonstration of disc space narrowing at L5-S1. XR/XR pelvis min 3V IMPRESSION: 1. Moderate degenerative changes in bilateral hips. 2. Moderate degenerative changes in bilateral sacroiliac joints. 3. Facet arthritis and degenerative changes in the imaged lower lumbar spine with moderate loss of disc space height at L5-S1. Additional imaging with CT scan or MRI should be considered for better visualization as these modalities are much more sensitive for detection of fracture or other underlying pathology.
--- NOTE | ~2023-06-16 | XR_ITS ---
EXAMINATION: XR PELVIS XR SACRUM CLINICAL INFORMATION: Low back pain. COMPARISON: Lumbar spine 09/21/2019. TECHNIQUE: Lateral and 2 AP views of the sacrum. AP view of the pelvis. FINDINGS: Pelvis: Degenerative changes in the imaged lower lumbar spine. Moderate degenerative changes in bilateral hips with joint space narrowing and hypertrophic change. Sacrum: Moderate degenerative changes in the bilateral sacroiliac joints with joint space narrowing and sclerosis. Facet arthritis in the imaged lower lumbar spine. Spondylosis in the lower lumbar spine with redemonstration of disc space narrowing at L5-S1. XR/XR sacrum coccyx min 2V IMPRESSION: 1. Moderate degenerative changes in bilateral hips. 2. Moderate degenerative changes in bilateral sacroiliac joints. 3. Facet arthritis and degenerative changes in the imaged lower lumbar spine with moderate loss of disc space height at L5-S1. Additional imaging with CT scan or MRI should be considered for better visualization as these modalities are much more sensitive for detection of fracture or other underlying pathology.
== END 2023-06-16 12:13 | disposition home or self-care (01) ==
LOC: HO.XRAY 12:12
PROVIDERS: Absent Provider Nurse Practitioner Family; PCP Internal Medicine; Visit Provider Internal Medicine
DX: Z01.818 Encounter for other preprocedural examination (principal); M54.50 Low back pain, unspecified; Z91.81 History of falling
CPT/HCPCS: 72190; 72220; 99212

== ENCOUNTER 2023-06-16 12:12 | Outpatient (AMB) | payer OTHER, SELFPAY ==
--- NOTE | 2023-06-16 12:30 | A.OFFVIS_ITS ---
Intake Vital Signs 06/16/23 12:33 Height 5 ft 7 in Weight 194 lb 0.108 oz BMI 30.4 BP 119/79 Blood Pressure Location Lt brachial Position Sitting Pulse 61 Intake Visit Reasons: Rediscuss Colonoscopy Intake Note: Ada presents in the office as a follow up to rediscuss colonoscopy. CC: She states that she has never had a colonoscopy - just cologard. She states that she fell down a week ago and she now has pains in her lower back so she wants to tell her PCP. Financial Accounting Analyst Required: Yes Financial Accounting Analyst Name: [id number] Allergies tramadol [From ULTRAM] Allergy (Severe, Verified 06/16/23 13:59) ANAPHYLAXIS HPI HPI Comments History of Present Illness Details 46 year old female presenting to the off ice for follow up. Prev visit 06/16/22: Patient is at average risk of colon cancer due to no family history of colon cancer or colon polyps. Patient does not have any other gastrointestinal symptoms to include abdominal pain, nausea, vomiting, diarrhea, blood in stool, weight loss. Labs reviewed to confirm patient does not have anemia. Elected to do cologuard which is negative from 06/2022. 06/16/23: Comes in today on behest of her OB-MEAT SMOKER. She is unable to verbalise the reason for follow up. Says her Ob told her to follow up for colonoscopy but she is unsure why as she does not have any abdominal pain, N,V,D blood in stool. No change in fam hx. [facility] Medical History Carpal tunnel syndrome of right wrist Rotator cuff injury Low back pain Lower extremity pain, bilateral Tinea corporis Obesity (BMI 30-39.9) Depression Anxiety Posttraumatic stress disorder Insomnia Fibromyalgia Vitamin D deficiency Pure hypercholesterolemia Surgical History History of facial surgery H/O unilateral salpingectomy History of cholecystectomy History of section Family History Father Alcohol abuse Mother Asthma Chronic mental illness Mental health disorder Social History Housing: Apartment Alcohol intake: never Patient Tobacco Use Status: Never used Tobacco e-Cigarette/Vaping Use: Never Used Second Hand Smoke Exposure: No service: No Current occupational status: retired Cognitive needs: No Hearing needs: No Vision needs: Yes (Glasses) Female Reproductive History Menstrual Age of Menarche: 11 Review of Systems Const All systems reviewed & are unremarkable except as noted in HPI and below Physical Exam Vital Signs: Last Vital Signs Pulse 61 06/16/23 12:33 BP 119/79 06/16/23 12:33 BMI result Body Mass Index 30.4 Gen appear: NAD HEENT: nonicteric, no cervical lymphadenopathy Chest: CTA CVS: Regular S1/S2 Abd: soft, nontender, nondistended, bowel sounds + Ext: no peripheral edema Neuro: A/Ox3, noted to move all extremities spontaneously Psych: interacting appropriately Assessment & Plan Assessment & Plan (1) Colon cancer screening: Code(s): Z12.11 - Encounter for screening for malignant neoplasm of colon Plan Negative cologuard from Jun 2022. Due for next screening in 2024. Since pt was sent by Ob-Directional Bore Operator will send a msg to clarify no other concerns since pt unable to verbalise why she is here and does not report any GI sx either. If no other concerns from Ob as well, will follow up with GI prn. Coding Level of Care Code Est Pt Level 2 (75113) Diagnoses Colon cancer screening Z12.11
[2023-06-16 12:33] VITALS: BP 119/79; PULSE 61; BMI 30.4
== END 2023-06-16 14:10 | disposition home or self-care (01) ==
PROVIDERS: PCP Internal Medicine; Visit Provider Internal Medicine
DX: Z12.11 Encounter for screening for malignant neoplasm of colon (principal); Z01.818 Encounter for other preprocedural examination
CPT/HCPCS: 99212

== ENCOUNTER 2023-06-16 13:28 | Outpatient (AMB) | payer OTHER, SELFPAY ==
[2023-06-16 13:46] VITALS: BP 130/82; PULSE 59; O2SAT 100; BMI 30.5
--- NOTE | 2023-06-16 13:46 | MHC.PC.OV ---
Vital Signs 06/16/23 13:46 Height 5 ft 7 in Weight 195 lb BMI 30.5 BP 130/82 Blood Pressure Location Lt brachial Position Sitting Pulse 59 Pulse Source Pulse Oximeter Temp Source Skin Pulse Oximetry (%) 100 Oxygen Delivery Method Room Air Intake Visit Reasons: Back pain due to fall Intake Note: pt states lower back pain and right leg pain due to fall X1week Business Information Manager Required: Yes Business Information Manager Language: R[place]an Allergies tramadol [From ULTRAM] Allergy (Severe, Verified 06/16/23 13:59) ANAPHYLAXIS Medication List - Last Reconciled 06/16/23 by DENISE Uribe amitriptyline 100 mg PO BEDTIME cholecalciferol (vitamin D3) 50 mcg PO DAILY 90 days diazepam 5 mg PO TID PRN 30 days hydroxyzine pamoate 25 mg PO TID loratadine 10 mg PO DAILY PRN naproxen 500 mg PO BID PRN 30 days sertraline 200 mg PO DAILY Tobacco use date assessed: 06/16/23 HPI Back pain due to fall HPI Details Patient is a 47-year-old female who presents today for the same day visit due to right low back pain for the past [address] Medical history significant for hypercholesterolemia, fibromyalgia, anxiety, obesity among others. Patient reports that 1 week ago she fell on her right buttock when picking up packages from floor. She reports this pain in the past although pain got worse after the fall. No numbness or tingling, no changes in bowel/bladder. Reports pain is constant, nothing helps this pain, pain aggravated with activity, prolonged sitting, prolonged standing. Reports pain in right low back/coccyx area and right buttock. Pain does not radiate down to her right leg. She has tried naproxen and diazepam with no improvement. 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 [facility] Medical History Carpal tunnel syndrome of right wrist Rotator cuff injury Low back pain Lower extremity pain, bilateral Tinea corporis Obesity (BMI 30-39.9) Depression Anxiety Posttraumatic stress disorder Insomnia Fibromyalgia Vitamin D deficiency Pure hypercholesterolemia Surgical History History of facial surgery H/O unilateral salpingectomy History of cholecystectomy History of section Family History Father Alcohol abuse Mother Asthma Chronic mental illness Mental health disorder Social History Housing: Apartment Alcohol intake: never Patient Tobacco Use Status: Never used Tobacco e-Cigarette/Vaping Use: Never Used Second Hand Smoke Exposure: No service: No Current occupational status: retired Cognitive needs: No Hearing needs: No Vision needs: Yes (Glasses) Female Reproductive History Menstrual Age of Menarche: 11 Questionnaire Thrive Questionnaire Date Thrive assessed: 02/23/23 AUDIT C Alcohol Use Questionnaire (AUDIT-C) 1. How often do you have a drink containing alcohol?: Never 3. How often do you have six or more drinks on one occasion?: Never Total Score: 0 Score Reviewed/Action Taken: No PRISCILLA-7 AMB Questionnaire PRISCILLA-7 Date PRISCILLA - 7 assessed: 02/23/23 Source: Developed by Drs. Vlad Marquez, Valentine Jose, Luís Fuller and colleagues, with an educational shantell from [employer]. Review of Systems Const Denies body aches, Denies chills, Denies fever(s) and Denies headache(s) ENT Denies dizziness, Denies otalgia, Denies headache(s), Denies nasal discharge, Denies sinus pain and Denies sore throat Card Denies chest pain, Denies edema, Denies lightheadedness and Denies dyspnea Resp Denies cough, Denies dyspnea and Denies wheezing GI Denies constipation, Denies diarrhea, Denies nausea and Denies vomiting Denies dysuria Musc Reports as per HPI, Reports back pain, Denies myalgias, Denies numbness and Denies tingling Skin/Breast Denies rash Neuro Denies dizziness, Denies headache(s), Denies numbness and Denies tingling Aller/Immun Denies wheezing Physical exam (Primary Care) Vital Signs: Last Vital Signs Pulse 59 06/16/23 13:46 BP 130/82 06/16/23 13:46 Pulse Ox 100 06/16/23 13:46 Oxygen Delivery Method Room Air 06/16/23 13:46 BMI result Body Mass Index 30.5 Tobacco/Smoking Status: Tobacco use Status Tobacco use date assessed 06/16/23 06/16/23 13:53 Patient Tobacco Use Status Never used Tobacco 06/16/23 13:53 e-Cigarette/Vaping Use Never Used 06/16/23 13:53 Thrive Assessment: Date of Thrive Assessment Date Thrive assessed 02/23/23 06/16/23 13:53 Const General: cooperative and no acute distress Orientation/consciousness: patient oriented x3 HENMT Head: Yes normocephalic and Yes atraumatic Throat: Yes posterior oropharynx normal Eyes General: appearance normal, both eyes and all related structures Neck Neck: Yes normal visual inspection and Yes full ROM Resp Effort & Inspection: normal respiratory effort and able to speak in complete sentences Auscultation: clear to auscultation bilaterally, no crackles, no rales, no rhonchi and no wheezes Cardio Rate: regular rate Rhythm: regular rhythm Heart sounds: S1 normal heart sound present and S2 normal heart sound present GI Auscultation: normal bowel sounds Back/Spine/Pelvis Thoracic/Lumbar Spine: thoracic and lumbar spine normal to inspection, No paraspinal muscle tenderness, No thoracic spinal tenderness and No lumbar spinal tenderness Pelvis: no buttock ecchymosis, buttock tenderness (Right) and no buttock swelling Coccyx: Coccyx tenderness present Skin General skin exam: no rashes or lesions noted Neuro Other: Mild limping noted General: patient oriented x3 Extrem General: Yes full ROM and No edema Assessment and Plan Assessment & Plan (1) Low back pain: Code(s): M54.5 - Low back pain Qualifiers: Back pain laterality: bilateral Chronicity: chronic Sciatica presence: without sciatica Qualified Code(s): M54.5 - Low back pain; G89.29 - Other chronic pain Plan: Patient presents status post fall 1 week ago with right buttock/low back/coccyx pain which is not improving. Physical exam with right buttock and coccyx tenderness. Will obtain x-rays. Patient is to continue naproxen b.i.d. p.r.n.. Will provide with cyclobenzaprine t.i.d. p.r.n.-educated about drowsiness, do not use diazepam together with cyclobenzaprine. Start diclofenac cream p.r.n.. Patient would like to hold off on physical therapy referral. Encouraged heat/cold packs p.r.n.. Signs and symptoms reviewed when to notify provider or go to the emergency department. Keep appointment with PCP next week. Patient agreed with the plan. Orders: Orders XR pelvis min 3V Today M54.5 - Low back pain XR sacrum coccyx min 2V Today M54.5 - Low back pain Medications: New cyclobenzaprine 10 mg PO TID PRN 21 tabs 0RF muscle spasm M54.5 - Low back pain diclofenac sodium 1% (Arthritis Pain (diclofenac)) apply to single elbow, wrist or hand; for hand includes palm/fingers/back of hand 2 grams topical QID PRN 100 grams 0RF pain M54.5 - Low back pain Coding Level of Care Code Est Pt Level 3 (63872) Diagnoses Chronic bilateral low back pain without sciatica M54.5; G89.29 Back pain laterality: bilateral Chronicity: chronic Sciatica presence: without sciatica
== END 2023-06-16 14:20 | disposition home or self-care (01) ==
PROVIDERS: PCP Internal Medicine; Visit Provider Nurse Practitioner Family
DX: M54.50 Low back pain, unspecified (principal); G89.29 Other chronic pain; W19.XXXA Unspecified fall, initial encounter; F33.9 Major depressive disorder, recurrent, unspecified
CPT/HCPCS: 99213

== ENCOUNTER 2023-06-18 12:22 | Outpatient (REF) | payer OTHER, SELFPAY ==
--- NOTE | 2023-06-18 12:26 | EMG_ITS ---
Chief complaint: Right shoulder pain, right hand numbness Reason for referral: Evaluate for Carpal Tunnel Syndrome Procedure done: Right upper extremity NCS/EMG Precautions and/or limitations: None The limb temperature was monitored continuously and remained between 32-36 degrees C during the performance of the NCS. Nerve Conduction Studies Anti Sensory Summary Table ?Stim Site NR Onset (ms) Norm Onset (ms) Peak (ms) Norm Peak (ms) O-P Amp (?V) Norm O-P Amp Site1 Site2 Delta-0 (ms) Dist (cm) Cooper (m/s) Norm Cooper (m/s) Right Median Anti Sensory (2nd Digit) Wrist ? 2.4 2.9 <3.6 32.6 >10 Wrist 2nd Digit 2.4 14.0 58 Right Ulnar Anti Sensory (5th Digit) Wrist ? 1.8 2.5 <3.7 15.4 >15.0 Wrist 5th Digit 1.8 14.0 78 Motor Summary Table ?Stim Site NR Onset (ms) Norm Onset (ms) O-P Amp (mV) Norm O-P Amp iAmp (mV) Amp (1st) (%) Site1 Site2 Delta-0 (ms) Dist (cm) Cooper (m/s) Norm Cooper (m/s) Right Median Motor (Abd Poll Brev) Wrist ? 3.4 <3.9 9.9 >4.5 12.3 100.0 Elbow Wrist 3.3 20.5 62 >45 Elbow ? 6.7 9.6 11.8 97.0 Right Ulnar Motor (Abd Dig Minimi) Wrist ? 2.3 <3.0 11.0 >5 13.4 100.0 B Elbow Wrist 2.9 18.5 64 >45 B Elbow ? 5.2 10.2 12.5 92.7 A Elbow B Elbow 1.0 10.0 100 >45 A Elbow ? 6.2 11.1 13.6 100.9 Comparison Summary Table ?Stim Site NR Peak (ms) Norm Peak (ms) P-T Amp (?V) Site1 Site2 Delta-P (ms) Norm Delta (ms) Right Median/Radial Dig I Comparison (Digit 1 - 10cm) Median ? 2.5 <2.9 46.0 Median Radial 0.5 Radial ? 2.0 <2.8 16.2 EMG ?Side Muscle Nerve Root Ins Act Fibs Psw Amp Dur Poly Recrt Int Pat Comment Right 1stDorInt Ulnar C8-T1 Nml Nml Nml Nml Nml 0 Nml Complete Right FlexCarRad Median C6-7 Nml Nml Nml Nml Nml 0 Nml Complete Right Biceps Musculocut C5-6 Nml Nml Nml Nml Nml 0 Nml Complete Right Triceps Radial C6-7-8 Nml Nml Nml Nml Nml 0 Nml Complete Right Deltoid Axillary C5-6 Nml Nml Nml Nml Nml 0 Nml Complete FINDINGS: Interlatency difference between right median and radial sensory nerves was 0.5. Otherwise, all other motor and sensory nerves tested showed normal latencies, amplitudes and conduction velocities. Concentric needle EMG was performed in selected muscles of the right upper extremity. Study did not reveal signs of electric abnormalities as shown in the table below. IMPRESSION: 1. This is an abnormal study. 2. There is electrodiagnostic evidence for right borderline/very mild median neuropathy at the wrist, consistent with carpal tunnel syndrome. 3. There is no electrodiagnostic evidence for ulnar neuropathy, brachial plexopathy, or cervical radiculopathy. Thank you for your kind referral. Jany Richardson MD, TREVOR Board Certified, [place] [employer] and Rehabilitation (ABPMR) Board Certified, [place] Board of Electrodiagnostic Medicine (ABEM) [place] [id number] [facility]
== END 2023-06-18 12:23 | disposition home or self-care (01) ==
LOC: HO.NEURO 12:22
PROVIDERS: PCP Internal Medicine; Visit Provider Physical Medicine & Rehabilitation
DX: G56.01 Carpal tunnel syndrome, right upper limb (principal)
CPT/HCPCS: 95886; 95909

== ENCOUNTER → 2023-06-18 12:26 | Outpatient (BNV) | payer OTHER, SELFPAY | PROVIDERS: PCP Internal Medicine; Visit Provider Physical Medicine & Rehabilitation | DX: G56.11 Other lesions of median nerve, right upper limb (principal); G56.01 Carpal tunnel syndrome, right upper limb | CPT/HCPCS: 95886; 95909 ==

== ENCOUNTER 2023-06-19 10:15 | Outpatient (REF) | payer OTHER, SELFPAY ==
--- NOTE | ~2023-06-19 | MR_ITS ---
EXAMINATION: MR SHOULDER WITHOUT CONTRAST, RIGHT CLINICAL INFORMATION: Evaluate for rotator cuff tear. Right shoulder pain. Limited range of motion. COMPARISON: None available. TECHNIQUE: MRI of the shoulder without contrast was performed on a high-field scanner. FINDINGS: ROTATOR CUFF: [id number] generalized rotator cuff tendinosis. No tendon tears. No muscle atrophy or fatty infiltration. BICEPS: Normal. CORACOACROMIAL ARCH: The undersurface of the acromion is curved with no subacromial spur. There is moderate acromioclavicular osteoarthritis with distal clavicular osteolysis and marked subchondral marrow edema of both the distal clavicle and acromion. Mild adjacent subacromial subdeltoid bursitis. LABRUM/CAPSULE: The glenoid labrum is diminutive diffusely, most consistent with a combination of labral degeneration and normal variation. This is most pronounced inferiorly. No discrete tears. Joint capsule is unremarkable. GLENOHUMERAL JOINT/MARROW: Small marginal osteophytes at the and humeral joint. Mild marrow edema signal in the glenoid osteophytes posteriorly and inferiorly. No fracture or malalignment. No joint effusion. A 5 x 5 x 2 mm low signal intensity chondral loose body is present in the axillary pouch. MR/MR shoulder RT wo con IMPRESSION: 1. Moderate acromioclavicular osteoarthritis with distal clavicular osteolysis and mild underlying subacromial subdeltoid bursitis. 2. [id number] generalized rotator cuff tendinosis. No tears. 3. Mild glenohumeral osteoarthritis with a 5 mm chondral loose body in the axillary pouch.
== END 2023-06-19 10:16 | disposition home or self-care (01) ==
LOC: HO.MRI 10:15
PROVIDERS: PCP Internal Medicine; Visit Provider Physical Medicine & Rehabilitation
DX: S46.001A Unspecified injury of muscle(s) and tendon(s) of the rotator cuff of right shoulder, initial encounter (principal)
CPT/HCPCS: 73221

== ENCOUNTER 2023-06-23 16:23 | Emergency (ER) | payer OTHER, SELFPAY ==
--- NOTE | ~2023-06-23 | XR_ITS ---
EXAMINATION: Sacrum and lumbar spine. CLINICAL INDICATIONS: Fall, fracture. TECHNIQUE: Lumbar spine 3 views.. Sacrum 3 views. FINDINGS: Lumbar spine: There is normal lumbar lordosis. The vertebral heights, alignment and disc heights are normal. No visible acute fracture, dislocation or subluxation seen. There is minimal levoscoliosis. The SI joints are symmetrical and normal. Sacrum and coccyx: There is no visible fracture or bony abnormality involving the sacrum or coccyx. The pre and post sacral soft tissues are normal. XR/XR sacrum coccyx min 2V IMPRESSION: 1. Mild levoscoliosis lumbar spine. No visible acute fracture, dislocation or subluxation seen. 2. Unremarkable sacrum and coccyx.
--- NOTE | ~2023-06-23 | XR_ITS ---
EXAMINATION: Sacrum and lumbar spine. CLINICAL INDICATIONS: Fall, fracture. TECHNIQUE: Lumbar spine 3 views.. Sacrum 3 views. FINDINGS: Lumbar spine: There is normal lumbar lordosis. The vertebral heights, alignment and disc heights are normal. No visible acute fracture, dislocation or subluxation seen. There is minimal levoscoliosis. The SI joints are symmetrical and normal. Sacrum and coccyx: There is no visible fracture or bony abnormality involving the sacrum or coccyx. The pre and post sacral soft tissues are normal. XR/XR lumbar spine 2-3V IMPRESSION: 1. Mild levoscoliosis lumbar spine. No visible acute fracture, dislocation or subluxation seen. 2. Unremarkable sacrum and coccyx.
[2023-06-23 17:28] VITALS: BP 129/81; PULSE 79; RESP 19; TEMP 36.2; O2SAT 99; BMI 31.2
--- NOTE | 2023-06-23 17:33 | ED.GENADULT ---
HPI - General Adult General Chief complaint: Back Pain/Injury Stated complaint: lower body pain Time Seen by Provider: 06/23/23 22:10 Source: patient and [employer] Mode of arrival: ambulatory History of Present Illness HPI narrative: 47-year-old female with longstanding history of RA and fibromyalgia who states that she fell at home approximately 3 weeks ago and had been provided with a cream that was initially working but now states that when she got up today she felt something tear in her coccyx and states she is having pain into the posterior aspect of her right thigh. Patient has taken Flexeril and diclofenac 1% cream at 12 noon. She denies any associated fever, chills and denies any bowel or bladder issues. Related Data Home Medications Medication Instructions Recorded Confirmed amitriptyline 100 mg tablet 100 mg PO BEDTIME 07/09/20 06/16/23 hydroxyzine pamoate 25 mg capsule 25 mg PO TID 07/09/20 06/16/23 sertraline 100 mg tablet 200 mg PO DAILY 07/09/20 06/16/23 Previous Rx's Medication Instructions Recorded loratadine 10 mg tablet 10 mg PO DAILY PRN allergic 09/08/22 symptoms #30 tabs cholecalciferol (vitamin D3) 50 50 mcg PO DAILY 90 days #90 caps 02/23/23 mcg (2,000 unit) capsule diazepam 5 mg tablet 5 mg PO TID PRN anxiety 30 days 03/08/23 #90 tabs diclofenac sodium 1 % topical gel 2 g topical QID PRN pain #100 grams 06/16/23 (Arthritis Pain (diclofenac)) ketorolac 10 mg tablet 10 mg PO Q6H PRN pain 5 days #20 06/23/23 tabs cyclobenzaprine 10 mg tablet 10 mg PO TID PRN muscle spasm #21 06/25/23 tabs Allergies Allergy/AdvReac Type Severity Reaction Status Date / Time tramadol [From ULTRAM] Allergy Severe ANAPHYLAXIS Verified 06/25/23 14:51 Review of Systems Review of Systems: Pertinent positives and negatives as stated in HPI [facility], [facility] Past Medical History Source: nursing notes reviewed Medical History Carpal tunnel syndrome of right wrist Rotator cuff injury Low back pain Lower extremity pain, bilateral Tinea corporis Obesity (BMI 30-39.9) Depression Anxiety Posttraumatic stress disorder Insomnia Fibromyalgia Vitamin D deficiency Pure hypercholesterolemia Surgical History History of facial surgery H/O unilateral salpingectomy History of cholecystectomy History of section Family History Family History Father Alcohol abuse Mother Asthma Chronic mental illness Mental health disorder Social History Social History Housing: Apartment Alcohol intake: never Patient Tobacco Use Status: Never used Tobacco e-Cigarette/Vaping Use: Never Used Second Hand Smoke Exposure: No service: No Current occupational status: retired Cognitive needs: No Hearing needs: No Vision needs: Yes (Glasses) Physical Exam ED Vital Signs: Vital Signs - 24 hr 06/23/23 17:28 06/23/23 19:45 Temperature 97.2 F Pulse Rate 79 68 Respiratory Rate 19 18 Blood Pressure 129/81 117/76 Pulse Oximetry 99 98 Oxygen Delivery Method Room Air Room Air BMI result Body Mass Index 31.2 VITAL SIGNS: Reviewed. GENERAL: Well developed, well nourished, in no acute distress. HEAD: Normocephalic/atraumatic EYES: PERRLA, EOMI LUNGS: Normal breath sounds. No adventitious sounds or accessory muscle use. SpO2<98> CARDIOVASCULAR: Regular rate and rhythm without noted murmurs ABDOMEN: Soft, non-tender, non-distended with bowel sounds. BACK: No midline vertebral tenderness or step-offs noted MUSCULOSKELETAL: No tenderness, deformities, or effusions noted on gross inspection. EXTREMITIES: No cyanosis, clubbing or edema. SKIN: Inspection of the skin reveals no rashes NEUROLOGIC: Alert and oriented x 4. Strength and sensation to light touch were grossly intact x 4. Course Course Course Narrative: RME: 47 yold female presents to the ED for low back and sacral pain. patient states she fell two weeks ago and had pain. patinet states today she got up fast and fellt like she tore mulsce in back. pain on movement of back. UA and back xray ordered Medications Administered Discontinued Medications Generic Name Dose Route Start Last Admin Trade Name Freq PRN Reason Stop Dose Admin Acetaminophen 975 mg 06/23/23 23:02 06/23/23 23:41 Acetaminophen 325 Mg Tablet PO 06/23/23 23:03 975 mg ONCE ONE Administration Ketorolac Tromethamine 15 mg 06/23/23 23:02 06/23/23 23:42 Ketorolac Tromethamine 15 Mg/Ml Vial IM 06/23/23 23:03 15 mg ONCE ONE Administration Lidocaine 1 patch 06/23/23 23:02 06/23/23 23:42 Lidocaine 4 % Patch Adh..Patch TRANSDERMA 06/23/23 23:03 1 patch ONCE ONE Administration Protocol Medical Decision Making Medical Decision Making [facility] Narrative: 47-year-old female with history and clinical presentation, DDX: Acute on chronic pain, possibly a flare of fibromyalgia, lumbar radiculopathy, no clinical suspicion for fracture/dislocation/cauda equina. There are no focal deficits. I reviewed all investigations and urinalysis appears to be a dirty sample with multiple squamous epithelium, no nitrite positive, I did review patient's previous microbiology results on urine cultures which have not grown a specific bacteria. I reviewed all imaging studies which do not demonstrate any fracture or dislocations. Patient was given combination analgesics and discharged home, I did recommend pursuing a referral for physical therapy. Differential Diagnosis Differential Diagnoses: The differential diagnosis associated with the presentation includes Admission/Observation Consideration of admission/observation: Escalation of care including admission/observation considered Please see the discussion above Lab Data [facility] Lab Attestation statement: I reviewed the patient's lab results. Please see the discussion above Labs: Lab Results 06/23/23 Range/Units 19:43 Urine Color Yellow Urine Appearance Clear Urine pH 6.0 (5.0-9.0) Ur Specific [place] 1.025 (1.005-1.025) Urine Protein Negative (Neg-Trace) mg/dL Urine Glucose (UA) Negative (Negative) mg/dL Urine Ketones Trace (Negative) mg/dL Urine Blood Negative (Negative) Urine Nitrite Negative (Negative) Ur Leukocyte Esterase Moderate (2+) H (Negative) Urine RBC 3-5 H (0-2) /HPF Urine WBC 6-10 H (0-5) /HPF Ur Squamous Epith Cells 6-10 (0-2) /HPF Urine Bacteria 2+ (None Seen) Hyaline Casts 0-2 (0-2) /LPF Urine Test NEGATIVE (NEGATIVE) Radiology Impression Discussion of test interpretation with radiology: I have reviewed the radiologist's reading. Radiologist Impression: Please see the discussion above External Record Review External record reviewed: Outpatient record, Prior outpatient labs and Prior outpatient radiology Discharge Plan Discharge Clinical Impression: Musculoskeletal pain, Right lumbar radiculopathy Patient Disposition: Home, Self-Care Instructions: Lumbar Radiculopathy (ED), Musculoskeletal Pain (ED), Lower Back Exercises (ED) Additional Instructions: Reanude todos los medicamentos caseros excepto naproxeno/ibuprofeno/Motrin. Le he empezado a yoseph ketorolaco, que es un medicamento similar brittney m?s renetta. Francesca un seguimiento con deshpande m?dico de atenci?n primaria a primera hora de la ma?yris. Es posible que desee hablar sobre fisioterapia. Regrese a la alee de emergencias si los s?ntomas empeoran. Resume all home medications except any naproxen/ibuprofen/Motrin. I have started you on ketorolac which is a similar but stronger medication. Please follow-up with your primary care doctor 1st thing in the morning. You may want to discuss physical therapy. Return to the ER for any worsening symptoms. Prescriptions: New ketorolac 10 mg tablet 10 mg PO Q6H PRN (Reason: pain) 5 Days Qty: 20 0RF Discontinued naproxen 500 mg tablet 500 mg PO BID PRN (Reason: pain) 30 Days Qty: 60 1RF Rx Instructions: Take with food No Action diazepam 5 mg tablet 5 mg PO TID PRN (Reason: anxiety) 30 Days Qty: 90 0RF loratadine 10 mg tablet 10 mg PO DAILY PRN (Reason: allergic symptoms) Qty: 30 0RF amitriptyline 100 mg tablet 100 mg PO BEDTIME sertraline 100 mg tablet 200 mg PO DAILY hydroxyzine pamoate 25 mg capsule 25 mg PO TID cyclobenzaprine 10 mg tablet 10 mg PO TID PRN (Reason: muscle spasm) Qty: 21 0RF diclofenac sodium [Arthritis Pain (diclofenac)] 1 % gel 2 g topical QID PRN (Reason: pain) Qty: 100 0RF Rx Instructions: apply to single elbow, wrist or hand; for hand includes palm/fingers/back of hand cholecalciferol (vitamin D3) 50 mcg (2,000 unit) capsule 50 mcg PO DAILY 90 Days Qty: 90 1RF Referrals: Charles Way MD [Primary Care Provider] - Interventions: ED Discharge Assessment Last Done: 06/23/23 23:53 Discharge Date/Time: 06/23/23 23:54 Print Language: [place]
[2023-06-23 19:45] VITALS: BP 117/76; PULSE 68; RESP 18; O2SAT 98
[2023-06-23 19:56] LABS: Appearance Urine Clear; Color Urine Yellow; Glucose Urine UA Negative (Negative); Leukocyte Esterase Urine Moderate (2+) (Negative); Nitrite Urine Negative (Negative); Specific Gravity - Urine 1.025 (1.005-1.025); UMIC TRIGGER UACC YES; Urine Blood Negative (Negative); Urine Ketones Trace mg/dL (Negative); Urine Protein Negative (Neg-Trace)
[2023-06-23 19:58] LABS: UPreg QC Valid YES; Urine Pregnancy NEGATIVE (NEGATIVE)
[2023-06-23 19:59] LABS: Bacteria Urine 2+ (None Seen); Hyaline Casts Urine 0-2 /LPF (0-2); UACC Culture Trigger YES
[2023-06-23] MEDS: Acetaminophen 325 MG TABLET 975 MG PO (23:41)
[2023-06-23] MEDS: Ketorolac Tromethamine 15 MG/ML VIAL IM (23:42)
[2023-06-23] MEDS: Lidocaine 4 % Patch ADH..PATCH 1 PATCH TRANSDERMA (23:42)
== END 2023-06-23 23:54 | disposition home or self-care (01) ==
PROVIDERS: Physician Assistant; Emergency Provider Student in an Organized Health Care Education/Training Program; PCP Internal Medicine
DX: M54.16 Radiculopathy, lumbar region (principal); M79.18 Myalgia, other site; E78.00 Pure hypercholesterolemia, unspecified; Z79.899 Other long term (current) drug therapy
CPT/HCPCS: 72100; 72220; 81001; 81025; 87086; 96372; 99283; 99284; J1885

== ENCOUNTER 2023-06-25 14:43 | Outpatient (AMB) | payer OTHER, SELFPAY ==
[2023-06-25 14:45] VITALS: BP 132/88; PULSE 68; RESP 17; O2SAT 98; BMI 30.4
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
== END 2023-06-25 15:32 | disposition home or self-care (01) ==
PROVIDERS: PCP Internal Medicine; Visit Provider Internal Medicine
DX: Z23 Encounter for immunization (principal)
CPT/HCPCS: 90471; 90686; 99214

== ENCOUNTER 2023-07-06 08:44 | Outpatient (AMB) | payer OTHER, SELFPAY ==
--- NOTE | 2023-07-06 08:46 | A.OFFPC_ITS ---
Vital Signs 07/06/23 08:47 Height 5 ft 7 in Weight 196 lb BMI 30.7 BP 130/78 Blood Pressure Location Lt brachial Position Sitting Pulse 72 Pulse Source Pulse Oximeter Pulse Oximetry (%) 98 Oxygen Delivery Method Room Air Intake Visit Reasons: leg numbness and weakness Allergies tramadol [From ULTRAM] Allergy (Severe, Verified 07/06/23 09:09) ANAPHYLAXIS Medication List - Last Reconciled 07/06/[address] MD amitriptyline 100 mg PO BEDTIME cholecalciferol (vitamin D3) 50 mcg PO DAILY 90 days cyclobenzaprine 10 mg PO TID PRN diazepam 5 mg PO TID PRN 30 days diclofenac sodium 1% (Arthritis Pain (diclofenac)) 2 grams topical QID PRN hydroxyzine pamoate 25 mg PO TID ketorolac 10 mg PO Q6H PRN 5 days loratadine 10 mg PO DAILY PRN sertraline 200 mg PO DAILY Tobacco use date assessed: 06/16/23 Dental Screening Dental Screen Date: 07/06/23 Did you have a dental visit in the last 12 months?: Yes Did you have a dental problem in the last 6 months where you did not have access to dental care?: No Was dental information given to patient?: Patient has dentist HPI leg numbness and weakness HPI Details Patient comes in today for her HDF follow up visit and for further evaluation of her right leg symptoms States that she went to the ER at [facility] this past weekend for right leg numbness and weakness Relates that she was experiencing increased pain over her right lower back that radiated down into her right leg last Wednesday (4 days ago) and her right leg went completely numb the next day States that they did some x-rays of her lower back at the ER and was advised that her x-rays came out okay She was sent home with Rx for some oral Toradol and Morphine but states that she has not yet taken the medications as she was concerned about the side effects from Morphine Was also offered an Rx for a walker which she declined; is currently only using a cane to help her ambulate States that her right leg presently still feels numb and weak and also reports a couple of incident this past weekend wherein she essentially urinated on herself without even realizing that she was peeing - states that she just felt her pants wet with urine and she finds this very concerning and would like to have this checked out TATE She denies any headaches or dizziness Denies any chest pains, no SOB No nausea/vomiting, no abdominal pain No change in bowel habits noted [facility] Medical History Carpal tunnel syndrome of right wrist Rotator cuff injury Low back pain Lower extremity pain, bilateral Tinea corporis Obesity (BMI 30-39.9) Depression Anxiety Posttraumatic stress disorder Insomnia Fibromyalgia Vitamin D deficiency Pure hypercholesterolemia Surgical History History of facial surgery H/O unilateral salpingectomy History of cholecystectomy History of section Family History Father Alcohol abuse Mother Asthma Chronic mental illness Mental health disorder Social History Housing: Apartment Alcohol intake: never Patient Tobacco Use Status: Never used Tobacco e-Cigarette/Vaping Use: Never Used Second Hand Smoke Exposure: No service: No Current occupational status: retired Cognitive needs: No Hearing needs: No Vision needs: Yes (Glasses) Female Reproductive History Menstrual Age of Menarche: 11 Questionnaire PHQ-9 Over the last 2 weeks, how often have you been bothered by any of the following problems? 1. Little interest or pleasure in doing things: not at all 2. Feeling down, depressed, or hopeless: more than half the days 3. Trouble falling or staying asleep, or sleeping too much: more than half the days 4. Feeling tired or having little energy: more than half the days 5. Poor appetite or overeating: more than half the days 6. Feeling bad about yourself - or that you are a failure or have let yourself or your family down: not at all 7. Trouble concentrating on things, such as reading the newspaper or watching television: more than half the days 8. Moving or speaking so slowly that other people could have noticed. Or the opposite - being so fidgety or restless that you have been moving around a lot more than usual: more than half the days 9. Thoughts that you would be better off or of hurting yourself in some way: not at all Total score: 12 Depression Screening Interpretation: Positive Depression Screening Follow-up: Existing condition and In treatment Depression Screening Done: Yes 96345 - PHQ-9 Billing: Yes Source: Developed by Drs. Vlad Marquez, Valentine Jose, Luís Fuller and colleagues, with an educational shantell from [employer] Thrive Questionnaire Date Thrive assessed: 02/23/23 AUDIT C Alcohol Use Questionnaire (AUDIT-C) 1. How often do you have a drink containing alcohol?: Never 3. How often do you have six or more drinks on one occasion?: Never Total Score: 0 Score Reviewed/Action Taken: Yes PRISCILLA-7 AMB Questionnaire PRISCILLA-7 Date PRISCILLA - 7 assessed: 02/23/23 Source: Developed by Drs. Vlad Marquez, Valentine Jose, Luís Fuller and colleagues, with an educational shantell from [employer] Review of Systems Const Denies chills, Reports fatigue, Denies fever(s) and Denies headache(s) ENT Denies dysphagia, Denies dizziness, Denies otalgia, Denies headache(s), Reports neck pain (chronic), Denies odynophagia and Denies sore throat Card Denies chest pain, Denies palpitations and Denies dyspnea Resp Denies cough, Denies dyspnea and Denies wheezing GI Denies abdominal pain, Denies constipation, Denies dysphagia, Denies heartburn, Denies diarrhea, Denies nausea, Denies odynophagia and Denies vomiting Denies difficulty voiding, Denies nocturia, Denies dysuria and Reports urinary incontinence (see HPI) Musc Reports back pain (chronic but increased pain over right lower back radiation down back of leg), Reports myalgias (diffuse, especially over the back of both shoulders), Reports arthralgias (multiple joints; increased over the right shoulder), Reports muscle weakness (of the right leg), Reports neck pain (chronic), Reports numbness (of the entire right leg) and Reports stiffness Skin/Breast Denies rash Neuro Reports burning sensations (in both feet, worse at night), Denies dizziness, Denies headache(s) and Reports numbness (of the entire right leg) Psych Denies anxiety Endo Reports fatigue and Denies palpitations Aller/Immun Denies wheezing Physical exam (Primary Care) Vital Signs: Last Vital Signs Pulse 72 07/06/23 08:47 BP 130/78 07/06/23 08:47 Pulse Ox 98 07/06/23 08:47 Oxygen Delivery Method Room Air 07/06/23 08:47 BMI result Body Mass Index 30.7 Tobacco/Smoking Status: Tobacco use Status Tobacco use date assessed 06/16/23 07/06/23 08:52 Patient Tobacco Use Status Never used Tobacco 07/06/23 08:52 e-Cigarette/Vaping Use Never Used 07/06/23 08:52 PHQ-9: PHQ-9 Score PHQ-9: Total score 12 07/06/23 09:29 Depression Screening Interpretation: Positive Depression Screening Follow-up: Existing condition and In treatment Thrive Assessment: Date of Thrive Assessment Date Thrive assessed 02/23/23 07/06/23 08:52 Const General: no acute distress and alert HENMT Ears: TM's normal bilaterally and EAC's normal Throat: Yes posterior oropharynx normal and Yes tonsils normal (no TP congestion noted) Neck Neck: Yes no lymphadenopathy and Yes tender (over the cervical spine and paraspinal areas bilaterally) Thyroid: Thyroid normal and no masses Lymphatic: no lymphadenopathy noted Resp Auscultation: clear to auscultation bilaterally, no rales and no wheezes Cardio Rate: regular rate Rhythm: regular rhythm Heart sounds: no murmurs GI Palpation (GI): Soft to palpation and nontender Auscultation: normal bowel sounds General: Yes no CVA tenderness Back/Spine/Pelvis Back: no CVA tenderness Thoracic/Lumbar Spine: paraspinal muscle tenderness on the right in the upper lumbar, in the mid lumbar and in the lower lumbar and bilaterally (over the ce rvical and thoracolumbar spine - diffuse), lumbar spinal tenderness and straight leg raise positive right Skin Rashes: no rashes Extrem General: Yes no clubbing, cyanosis or edema Right upper extremity: shoulder/upper arm Details: tenderness (diffusely over the scapular area) and abnormal ROM (pain with active ROM; unable to raise arm above shoulder level) Left upper extremity: shoulder/upper arm Details: tenderness (diffusely over the scapular areas) Assessment and Plan Assessment & Plan (1) Facet arthritis, degenerative, L5-S1 level, lumbosacral spine: Code(s): M47.817 - Spondylosis without myelopathy or radiculopathy, lumbosacral region (2) Weakness of right lower extremity: Code(s): R29.898 - Other symptoms and signs involving the musculoskeletal system (3) Urinary incontinence without sensory awareness: Code(s): N39.42 - Incontinence without sensory awareness Plan Patient's current symptoms raise concerns about possible nerve compression/cauda equina syndrome Will send her for MRI of the lumbar spine as well as the SI joints bilaterally for further evaluation Will also send her for some labs TATE for further evaluation Follow up as scheduled in September 2023 Orders: Orders MR lumbar spine wo con 07/06/23 M47.817 - Spondylosis without myelopathy or radiculopathy, lumbosacral region, N39.42 - Incontinence without sensory awareness, R29.898 - Other symptoms and signs involving the musculoskeletal system Complete Blood Count Auto Diff 07/06/23 M47.817 - Spondylosis without myelopathy or radiculopathy, lumbosacral region, N39.42 - Incontinence without sensory awareness, R29.898 - Other symptoms and signs involving the musculoskeletal system Erythrocyte Sedimentation Rate 07/06/23 M47.817 - Spondylosis without myelopathy or radiculopathy, lumbosacral region, N39.42 - Incontinence without sensory awareness, R29.898 - Other symptoms and signs involving the musculoskeletal system MR sacroiliac joint MATEUSZ wo con 07/06/23 M47.817 - Spondylosis without myelopathy or radiculopathy, lumbosacral region, N39.42 - Incontinence without sensory awareness, R29.898 - Other symptoms and signs involving the musculoskeletal system Comprehensive Met. Panel 07/06/23 M47.817 - Spondylosis without myelopathy or radiculopathy, lumbosacral region, N39.42 - Incontinence without sensory awareness, R29.898 - Other symptoms and signs involving the musculoskeletal system Vitamin B12 and Folate 07/06/23 E53.8 - Deficiency of other specified B group vitamins, N39.42 - Incontinence without sensory awareness, R29.898 - Other symptoms and signs involving the musculoskeletal system Coding Level of Care Code Est Pt Level 4 (26710) Diagnoses Facet arthritis, degenerative, L5-S1 level, lumbosacral spine M47.817 Weakness of right lower extremity R29.898 Urinary incontinence without sensory awareness N39.42
[2023-07-06 08:47] VITALS: BP 130/78; PULSE 72; O2SAT 98; BMI 30.7
== END 2023-07-06 09:29 | disposition home or self-care (01) ==
PROVIDERS: PCP Internal Medicine; Visit Provider Internal Medicine
DX: M47.817 Spondylosis without myelopathy or radiculopathy, lumbosacral region (principal); R29.898 Other symptoms and signs involving the musculoskeletal system; N39.42 Incontinence without sensory awareness
CPT/HCPCS: 99214

== ENCOUNTER 2023-08-04 09:42 | Outpatient (AMB) | payer OTHER, SELFPAY ==
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
[2023-08-04 09:57] VITALS: BMI 30.7
== END 2023-08-04 10:21 | disposition home or self-care (01) ==
PROVIDERS: PCP Internal Medicine; Visit Provider Physical Medicine & Rehabilitation
DX: M19.011 Primary osteoarthritis, right shoulder (principal); S46.001A Unspecified injury of muscle(s) and tendon(s) of the rotator cuff of right shoulder, initial encounter
CPT/HCPCS: 20610; 99213

== ENCOUNTER → 2023-08-04 09:42 | Outpatient (BNVA) | payer OTHER, SELFPAY | PROVIDERS: PCP Internal Medicine; Visit Provider Physical Medicine & Rehabilitation | DX: S46.001A Unspecified injury of muscle(s) and tendon(s) of the rotator cuff of right shoulder, initial encounter (principal); M19.011 Primary osteoarthritis, right shoulder | CPT/HCPCS: 20610; 99212; J3301 ==

== ENCOUNTER 2023-08-10 09:44 | Outpatient (AMB) | payer OTHER, SELFPAY ==
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
[2023-08-10 10:15] VITALS: BP 128/83; PULSE 72; RESP 18; O2SAT 72; BMI 29.6
== END 2023-08-10 10:39 | disposition home or self-care (01) ==
PROVIDERS: PCP Internal Medicine; Visit Provider Registered Nurse Emergency
DX: R29.898 Other symptoms and signs involving the musculoskeletal system (principal); N39.42 Incontinence without sensory awareness; R20.0 Anesthesia of skin; R20.2 Paresthesia of skin
CPT/HCPCS: 99204

== ENCOUNTER → 2023-08-10 09:44 | Outpatient (BNVA) | payer OTHER, SELFPAY | PROVIDERS: PCP Internal Medicine; Visit Provider Registered Nurse Emergency | DX: R29.898 Other symptoms and signs involving the musculoskeletal system (principal); N39.42 Incontinence without sensory awareness; R20.0 Anesthesia of skin; R20.2 Paresthesia of skin | CPT/HCPCS: 99202 ==

== ENCOUNTER 2023-09-24 08:42 | Outpatient (REF) | payer OTHER, SELFPAY ==
--- NOTE | 2023-09-24 08:47 | EMG_ITS ---
Chief complaint: Back pain, right lower extremity weakness and numbness Reason for referral: Evaluate for radiculopathy Referred by: Rufina Lopez CNP Procedure done: Right lower extremity EMG/NCS Precautions and/or limitations: None The limb temperature was monitored continuously and remained between 32-36 degrees C during the performance of the NCS. Nerve Conduction Studies Anti Sensory Summary Table ?Stim Site NR Onset (ms) Norm Onset (ms) Peak (ms) Norm Peak (ms) O-P Amp (?V) Norm O-P Amp Site1 Site2 Delta-0 (ms) Dist (cm) Cooper (m/s) Norm Cooper (m/s) Right Sural Anti Sensory (Lat Mall) Calf ? 2.6 3.3 <4.0 5.8 >5.0 Calf Lat Mall 2.6 14.0 54 Motor Summary Table ?Stim Site NR Onset (ms) Norm Onset (ms) O-P Amp (mV) Norm O-P Amp iAmp (mV) Amp (1st) (%) Site1 Site2 Delta-0 (ms) Dist (cm) Cooper (m/s) Norm Cooper (m/s) Right Peroneal Motor (Ext Dig Brev) Ankle ? 3.8 <4.0 8.4 >2.5 10.1 100.0 Ankle Ext Dig Brev 3.8 0.0 B Fib ? 11.3 8.5 10.5 101.2 B Fib Ankle 7.5 36.0 48 >40 A Fib ? 12.0 8.4 10.4 100.0 Right Tibial Motor (Abd Mckeon Brev) Ankle ? 4.1 <5 3.1 >2.5 3.7 100.0 Ankle Abd Mckeon Brev 4.1 0.0 Knee ? 12.0 1.9 2.5 61.3 Knee Ankle 7.9 40.0 51 >40 EMG ?Side Muscle Nerve Root Ins Act Fibs Psw Amp Dur Poly Recrt Int Pat Comment Right AbdHallucis MedPlantar S1-2 Incr 1+ 1+ Nml Nml 0 Nml Complete Right AntTibialis Dp Br Peron L4-5 Nml Nml Nml Nml Nml 0 Nml Complete Right PostTibialis Tibial L5, S1 Nml Nml Nml Nml Nml 0 Nml Complete Right MedGastroc Tibial S1-2 Incr 1+ 1+ Nml Nml 0 Nml Complete Right VastusMed Femoral L2-4 Nml Nml Nml Nml Nml 0 Nml Complete Paraspinal EMG ?Side Muscle Nerve Root Ins Act Fibs Psw Comment Right Lumbar Upper Rami Nml Nml Nml Right Lumbar Mid Rami Nml Nml Nml Right Lumbar Lower Rami Nml Nml Nml FINDINGS: Right tibial nerve, though within normal, appeared small in amplitude. All other nerves tested were within normal. Concentric needle EMG was performed in selected muscles of the right lower extremity and lumbar paraspinals. Study revealed Signs of electric abnormalities as shown in the table below. Right medial gastrocnemius and AH muscles showed increased insertional activity, PSWs and fibrillations. IMPRESSION: 1. This is an abnormal study. 2. There is electrodiagnostic findings suggestive for right L5-S1 radiculopathy. 3. There is no electrodiagnostic evidence for peroneal neuropathy, tibial neuropathy. lumbosacral plexopathy, or peripheral neuropathy. Thank you for your kind referral. Jany Richardson MD, TREVOR Board Certified, [place] Board [employer] and Rehabilitation (ABPMR) Board Certified, [place] Board of Electrodiagnostic Medicine (ABEM) CODIN [id number] MTDD
== END 2023-09-24 08:43 | disposition home or self-care (01) ==
LOC: HO.NEURO 08:42
PROVIDERS: PCP Internal Medicine; Visit Provider Registered Nurse Emergency
DX: R20.0 Anesthesia of skin (principal); R20.2 Paresthesia of skin; R29.898 Other symptoms and signs involving the musculoskeletal system
CPT/HCPCS: 95886; 95908

== ENCOUNTER → 2023-09-24 08:47 | Outpatient (BNV) | payer OTHER, SELFPAY | PROVIDERS: PCP Internal Medicine; Visit Provider Physical Medicine & Rehabilitation | DX: M54.16 Radiculopathy, lumbar region (principal) | CPT/HCPCS: 95886; 95908 ==

== ENCOUNTER 2023-10-07 07:46 | Outpatient (REF) | payer OTHER, SELFPAY ==
--- NOTE | ~2023-10-07 | MR_ITS ---
EXAMINATION: MR LUMBAR SPINE WITHOUT CONTRAST CLINICAL INFORMATION: Low back pain. Right lower extremity pain, numbness, and weakness. COMPARISON: Lumbar spine radiographs 06/23/2023. TECHNIQUE: MRI of the lumbar spine was obtained using routine sequences without contrast. FINDINGS: There is spinal scoliosis with a leftward convex curvature of the lumbar spine. Alignment is grossly maintained in the sagittal dimension. Vertebral heights are preserved. No acute bone marrow signal changes. There is slight loss of intervertebral height and T2 signal intensity at multiple levels within the lower lumbar spine related to disc degeneration. The tip of the conus medullaris is located at L1. No mass effect on the conus. Visualized distal cord signal intensity is normal. At L1-L2 the annular contour is normal. No canal or neuroforaminal compromise. At L2-L3 there is a slightly bulging disc. No canal stenosis. No mass effect on the traversing or foraminal nerve roots. At L3-L4 there is a slightly bulging disc. Bilateral facet degenerative change. No canal stenosis. No mass effect on the traversing or foraminal nerve roots. At L4-L5 there is a shallow right central protrusion superimposed upon an asymmetrically bulging disc to the right. Bilateral facet degenerative change. Subarticular zone narrowing causes compression of both traversing L5 nerve roots, greater on the right. No foraminal nerve root compression. At L5-S1 there is a right central extrusion with 1.2 cm superior subligamentous extension of extruded disc material causing asymmetric compression of the right traversing S1 nerve roots. No canal stenosis. No foraminal nerve root compression. Limited visualization of the retroperitoneal anatomy reveals scarring at the upper pole of the left kidney. Psoas and paraspinal muscle groups are symmetric. MR/MR lumbar spine wo con IMPRESSION: There is multilevel degenerative spondylosis of the lumbar spine. A right central extrusion at L5-S1 causes asymmetric compression of the right traversing S1 nerve roots. There is also a shallow right central protrusion at L4-L5 causing compression of both traversing L5 nerve roots, greater on the right. No canal stenosis.
[2023-10-07 08:07] LABS: MANUAL DIFF FLAG NO
[2023-10-07 08:35] LABS: Appearance Urine Clear; Color Urine Dark Yellow; Glucose Urine UA Negative (Negative); Leukocyte Esterase Urine Small (1+) (Negative); Nitrite Urine Negative (Negative); PH 5.5 (5.0-9.0); Specific Gravity - Urine 1.025 (1.005-1.025); UMIC TRIGGER UACC YES; Urine Blood Trace (Negative); Urine Ketones Trace mg/dL (Negative); Urine Protein Trace mg/dL (Neg-Trace)
[2023-10-07 08:36] LABS: Basophils Percent Auto 0.6 % (0-2); Eosinophils Absolute Auto 0.1 X10*3/uL (0.0-0.4); Eosinophils Percent Auto 2.8 % (0-4); Hemoglobin 13.9 g/dl (12.0-16.0); Imm Gran Abs Auto 0.02 X10*3/uL (0.00-0.03); Imm Gran Pct Auto 0.4 % (0.0-0.4); Lymphocytes Absolute Auto 1.5 X10*3/uL (1.2-4.9); Mean Corpuscular HGB Conc 32.3 g/dl (31.0-35.0); Mean Corpuscular Hemoglobin 28.4 pg (27.0-33.0); Mean Corpuscular Volume 87.9 fL (80.0-98.0); Mean Platelet Volume 10.6 fL (9.4-12.3); Monocytes Absolute Auto 0.5 X10*3/uL (0.1-1.2); Monocytes Percent Auto 10.3 % (2-11); Neutrophils Absolute Auto 2.7 x10*3/uL (2.0-8.3); Neutrophils Percent Auto 54.9 % (45-73); Platelet Count 282 X10*3/uL (160-400); Red Blood Count 4.89 X10*6/uL (4.20-5.50); Red Cell Distribution Width 12.9 % (11.0-16.0)
[2023-10-07 08:38] LABS: Bacteria Urine 1+ (None Seen); Hyaline Casts Urine 0-2 /LPF (0-2); UACC Culture Trigger YES
[2023-10-07 09:10] LABS: Alanine Aminotransferase 20 U/L (0-31); Albumin Level 4.3 g/dL (3.5-5.0); Alkaline Phosphatase 77 U/L (39-117); Anion Gap 11 (12-20); Aspartate Amino Transferase 18 U/L (5-31); Bilirubin Total 0.8 mg/dL (0.0-1.0); Blood Urea Nitrogen 14 mg/dL (9-16); Calcium 10.1 mg/dL (8.4-10.2); Carbon Dioxide 30 mmol/L (22-29); Chloride 105 mmol/L (96-108); Cholesterol 210 mg/dL (<200); Estimated Glomerular Filt Rate > 60; Glucose Fasting 101 mg/dL (60-99); HDL Cholesterol 72 mg/dL (>40); LDL Cholesterol Calculated 124 mg/dL (<100); Potassium 4.1 mmol/L (3.3-5.1); Sodium 142 mmol/L (135-145); Total Protein 7.4 g/dL (6.5-8.0); Triglycerides 73 mg/dL (<150)
[2023-10-07 09:23] LABS: Erythrocyte Sedimentation Rate 7 MM/HR (0-20)
[2023-10-07 09:27] LABS: TSH reflex Free T4 1.41 uIU/mL (0.32-4.0); Vitamin D 25-OH Total 22.1 ng/mL (>30)
[2023-10-07 09:35] LABS: Folate 10.7 ng/mL (> or = 4.0); Vitamin B12 370 pg/mL (200-900)
== END 2023-10-07 07:47 | disposition home or self-care (01) ==
LOC: HO.MRI 07:46
PROVIDERS: PCP Internal Medicine; Visit Provider Internal Medicine
DX: I10 Essential (primary) hypertension (principal); E78.00 Pure hypercholesterolemia, unspecified; E53.8 Deficiency of other specified B group vitamins; E55.9 Vitamin D deficiency, unspecified; N39.42 Incontinence without sensory awareness; M47.817 Spondylosis without myelopathy or radiculopathy, lumbosacral region; R29.898 Other symptoms and signs involving the musculoskeletal system; R20.0 Anesthesia of skin; R20.2 Paresthesia of skin
CPT/HCPCS: 36415; 72148; 80053; 80061; 81001; 82306; 82607; 82746; 84443; 85025; 85652; 87086

== ENCOUNTER 2023-10-13 10:42 | Outpatient (AMB) | payer OTHER, SELFPAY ==
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
[2023-10-13 10:50] VITALS: BP 132/86; PULSE 68; RESP 18; O2SAT 98; BMI 29.5
== END 2023-10-13 11:14 | disposition home or self-care (01) ==
PROVIDERS: PCP Internal Medicine; Visit Provider Registered Nurse Emergency
DX: R29.898 Other symptoms and signs involving the musculoskeletal system (principal); N39.42 Incontinence without sensory awareness; R20.0 Anesthesia of skin; R20.2 Paresthesia of skin
CPT/HCPCS: 99213

== ENCOUNTER → 2023-10-13 10:42 | Outpatient (BNVA) | payer OTHER, SELFPAY | PROVIDERS: PCP Internal Medicine; Visit Provider Registered Nurse Emergency | DX: R29.898 Other symptoms and signs involving the musculoskeletal system (principal); N39.42 Incontinence without sensory awareness; R20.0 Anesthesia of skin; R20.2 Paresthesia of skin | CPT/HCPCS: 99212 ==

== ENCOUNTER 2023-10-28 09:43 | Outpatient (AMB) | payer OTHER, SELFPAY ==
[2023-10-28 09:48] VITALS: BP 124/86; PULSE 85; O2SAT 96; BMI 29.8
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
== END 2023-10-28 10:59 | disposition home or self-care (01) ==
PROVIDERS: PCP Internal Medicine; Visit Provider Internal Medicine
DX: E78.00 Pure hypercholesterolemia, unspecified (principal); E55.9 Vitamin D deficiency, unspecified; M51.36 Other intervertebral disc degeneration, lumbar region; Z68.29 Body mass index [BMI] 29.0-29.9, adult; E66.9 Obesity, unspecified; M54.16 Radiculopathy, lumbar region; M79.7 Fibromyalgia; M75.01 Adhesive capsulitis of right shoulder; G47.00 Insomnia, unspecified; F43.10 Post-traumatic stress disorder, unspecified; F41.9 Anxiety disorder, unspecified; F32.9 Major depressive disorder, single episode, unspecified
CPT/HCPCS: 99214

== ENCOUNTER 2023-11-23 06:12 | Outpatient (REF) | payer OTHER, SELFPAY ==
--- NOTE | ~2023-11-23 | FL_ITS ---
EXAMINATION: XR FLUOROSCOPY WITH IMAGES CLINICAL INFORMATION: Lumbar radiculopathy COMPARISON: None available. TECHNIQUE: Fluoroscopy Supervised By: Dr. Maulik Alcantar. Fluoroscopy Time: 0.3 minutes. Cumulative Dose: 10.5 mGy. DAP: 0.183 Gycm2. Images: 1. FINDINGS: Fluoroscopic imaging guidance was provided for a procedure. A single image is available which shows a needle positioned over the right L5-S1 foramen. FL/FL guidance in treatment room IMPRESSION: Fluoroscopic imaging guidance for a procedure. For further detail regarding procedure and findings, please refer to procedure report.
== END 2023-11-23 06:13 | disposition home or self-care (01) ==
LOC: CF 06:12
PROVIDERS: Visit Provider Anesthesiology
DX: M54.16 Radiculopathy, lumbar region (principal); R29.898 Other symptoms and signs involving the musculoskeletal system; N39.42 Incontinence without sensory awareness; R20.0 Anesthesia of skin; R20.2 Paresthesia of skin
CPT/HCPCS: 64483; J3301; Q9967

== ENCOUNTER 2023-11-23 11:10 | Outpatient (AMB) | payer OTHER, SELFPAY ==
--- NOTE | 2023-11-23 12:13 | A.OFFVIS_ITS ---
Intake Vital Signs 11/23/23 12:53 11/23/23 12:54 Height 5 ft 7 in Weight 190 lb BMI 29.8 BP 130/82 142/82 H Blood Pressure Location Lt brachial Lt brachial Position Sitting Sitting Respiration 18 16 Pulse 81 88 Pulse Source Pulse Oximeter Pulse Oximeter Pulse Oximetry (%) 97 98 Oxygen Delivery Method Room Air Room Air Comment Pre-OP Post-Op Intake Visit Reasons: RIGHT L5,S1 TFESI Allergies tramadol [From ULTRAM] Allergy (Severe, Verified 10/28/23 10:45) ANAPHYLAXIS [facility] Medical History (Updated 10/28/23 @ 15:[address] MD) Lumbar degenerative disc disease Carpal tunnel syndrome of right wrist Rotator cuff injury Low back pain Lower extremity pain, bilateral Tinea corporis Obesity (BMI 30-39.9) Depression Anxiety Posttraumatic stress disorder Insomnia Fibromyalgia Vitamin D deficiency Pure hypercholesterolemia Surgical History History of facial surgery H/O unilateral salpingectomy History of cholecystectomy History of section Family History Father Alcohol abuse Mother Asthma Chronic mental illness Mental health disorder Social History Housing: Apartment Alcohol intake: never Patient Tobacco Use Status: Never used Tobacco e-Cigarette/Vaping Use: Never Used Second Hand Smoke Exposure: No service: No Current occupational status: retired Cognitive needs: No Hearing needs: No Vision needs: Yes (Glasses) Female Reproductive History Menstrual Age of Menarche: 11 Physical Exam Vital Signs: Last Vital Signs Pulse 88 11/23/23 12:54 Resp 16 11/23/23 12:54 BP 142/82 H 11/23/23 12:54 Pulse Ox 98 11/23/23 12:54 Oxygen Delivery Method Room Air 11/23/23 12:54 BMI result Body Mass Index 29.8 Assessment & Plan Assessment & Plan (1) Weakness of right lower extremity: Code(s): R29.898 - Other symptoms and signs involving the musculoskeletal system (2) Urinary incontinence without sensory awareness: Code(s): N39.42 - Incontinence without sensory awareness (3) Numbness and tingling of right lower extremity: Code(s): R20.0 - Anesthesia of skin; R20.2 - Paresthesia of skin Plan: Right L5-S1 Transforaminal epidural steroid injection Informed consent was thoroughly explained to the patient before the procedure.? The patient came to the operating room.? He was positioned prone on operating table with a pillow under his abdomen.? Time-out was performed delineating correct site and side of the procedure, nature of the injection, name and date of of the patient. The lower back of the patient was prepped with ChloraPrep and draped with sterile utility towels.? C-arm was brought over the operating field and sq picture of L5 vertebra were demonstrated on the screen.? The right side was chosen as the side of the injection.? Tilting machine ipsilateral to the right at the level of L5 the most prominent picture of the right pedicle was obtained on the screen.? 3 mm below the level of the lowest point of the pedicle projection to the skin small amount of lidocaine 1% 3-4 cc was injected to anesthetize the skin.? After that 5 in 22 gauge Quincke point needle was inserted through the skin wheal and was advanced to were the L5-S1 foramina on anterior posterior , lateral and oblique views intermittently.? When tip of the needle entered foramina projection on AP view injection of the contrast was performed demonstrating epidural and perineural spread of the contrast.? On the lateral view contrast was spread in the epidural fashion. After that injection of the treatment medicine 4 cc of lidocaine 1% mixed with Kenalog 40 mg was injected into the foramina.? No intrathecal and no intravascular spread of the contrast was noted. Upon completion of the procedure sterile Band-Aids were applied. Patient became nauseous upon injection of the medication, called for her compress was applied. Patient got better. Plan Quin is a very pleasant 47 year old female who presented to the office today for follow up, review of EMG/MRI. Patient suffering with lumbar radiculopathy She has exhausted conservative therapy including nonsteroidal anti-inflammatory medication, topical medication and muscle relaxers. PCP ordered PT, patient is not able to participate at this time due to physical limitations from her back pain and right leg numbness. Will shcedule for fluoroscopy guided L5-S1 transforaminal epidural steroid injection with local anesthetic. Patient will follow up in the office after injection, sooner if needed. All questions and concerns were answered, patient agrees the plan. Orders: Orders FL guidance in treatment room Today M54.16 - Radiculopathy, lumbar region Coding Level of Care Code Procedure Only Diagnoses Weakness of right lower extremity R29.898 Urinary incontinence without sensory awareness N39.42 Numbness and tingling of right lower extremity R20.0; R20.2
[2023-11-23 12:53] VITALS: BP 130/82; PULSE 81; RESP 18; O2SAT 97; BMI 29.8
[2023-11-23 12:54] VITALS: BP 142/82; PULSE 88; RESP 16; O2SAT 98
== END 2023-11-23 12:02 | disposition home or self-care (01) ==
LOC: HO.PMCPRC 11:10
PROVIDERS: PCP Internal Medicine; Visit Provider Anesthesiology
DX: M54.16 Radiculopathy, lumbar region (principal)
CPT/HCPCS: 64483

== ENCOUNTER 2023-11-26 14:25 | Outpatient (AMB) | payer OTHER, SELFPAY ==
[2023-11-26 14:44] VITALS: BP 110/80; PULSE 77; TEMP 36.4; O2SAT 97; BMI 28.9
--- NOTE | 2023-11-26 14:44 | A.OFFVIS_ITS ---
Intake Vital Signs 11/26/23 14:44 Height 5 ft 7 in Weight 184 lb 11.958 oz BMI 28.9 BP 110/80 Blood Pressure Location Rt brachial Position Sitting Pulse 77 Pulse Source Pulse Oximeter Temp 97.5 F Temp Source Skin Pulse Oximetry (%) 97 Oxygen Delivery Method Room Air Intake Visit Reasons: fibromyalgia/CONFIRMED Intake Note: Patient last seen 04/08/[address] Bay, presents today for follow up. c/o right hip pain radiating down leg. Customer Experience Specialist Required: Yes Customer Experience Specialist Language: Casino Floor Walker Name: Kranthi [id number] Information Interpreted: clinical only Accompanied by: Self / Same As Patient Allergies tramadol [From ULTRAM] Allergy (Severe, Verified 11/26/23 14:46) ANAPHYLAXIS HPI HPI Comments History of Present Illness Details Ms. Myrick 48 yoF returns for evaluation of her fibromyalgia. She says joints are fairly stable with exception of the right shoulder which continues to bother her and lower back and new right sciatica. There is pain with lying on the are at night and she often have to lift her right arm the put it in position. She does take occasional naproxen for the right shoulder pain. She had been on sertraline and amitriptyline for the fibromyalgia and anxiety but decided to stop them for now. She thought she was taking too many medications. Other areas of pain include the hands, forearms, lower back, hips and knees. She continues on Amitriptyline 100 mg q.h.s., cyclobenzaprine 10 mg t.i.d. p.r.n., diclofenac sodium 1% sertraline 200 mg p.o. daily. --recent injection at pain management fo r lower back and sciatica --right shoulder injection 2 months ago [facility] Medical History (Updated 12/09/23 @ 17:53 by [facility] Trochanteric bursitis, right hip Lumbar degenerative disc disease Carpal tunnel syndrome of right wrist Rotator cuff injury Low back pain Lower extremity pain, bilateral Tinea corporis Obesity (BMI 30-39.9) Depression Anxiety Posttraumatic stress disorder Insomnia Fibromyalgia Vitamin D deficiency Pure hypercholesterolemia Surgical History History of facial surgery H/O unilateral salpingectomy History of cholecystectomy History of section Family History Father Alcohol abuse Mother Asthma Chronic mental illness Mental health disorder Social History Housing: Apartment Alcohol intake: never Patient Tobacco Use Status: Never used Tobacco e-Cigarette/Vaping Use: Never Used Second Hand Smoke Exposure: No service: No Current occupational status: retired Cognitive needs: No Hearing needs: No Vision needs: Yes (Glasses) Female Reproductive History Menstrual Age of Menarche: 11 Review of Systems Const All systems reviewed & are unremarkable except as noted in HPI and below Physical Exam Vital Signs: Last Vital Signs Temp 97.5 F 11/26/23 14:44 Pulse 77 11/26/23 14:44 BP 110/80 11/26/23 14:44 Pulse Ox 97 11/26/23 14:44 Oxygen Delivery Method Room Air 11/26/23 14:44 BMI result Body Mass Index 28.9 APPEARANCE: Patient in no acute distress, nourished, groomed EYES no redness, eyelids normal EARS: External ear normal, canal clear and tympanic membrane normal. HEART: Regulrar rhythm, S1-S2 heard, no murmurs, rubs or gallops. LUNG: Clear to auscultation EXTREMITIES: No edema, no calf tenderness, normal peripheral pulses. NEURO: Oriented and alert x3. No focal weakness. Reflexes symmetric. Gait normal. SKIN: No inflammatory or neoplastic lesions. Normal color and turgor JOINT EXAM:.?? Cervical Spine:.? Full range of motion without pain; no tenderness. Thoracic Spine:.? No scoliosis.? No tenderness on palpation. Lumbar Spine:.? Alignment normal.? Full range of motion without pain, no tenderness. Chest Wall:.? No tenderness, swelling, increased warmth or erythema. Hands:.? Normal pain-free range of motion with mild tenderness, button swelling, increased warmth or erythema. Able to make a full fist and has a good vision specialist strength. Wrists:.? Normal pain-free range of motion without tenderness, swelling, increased warmth or erythema. Elbows:. Normal pain-free range of motion without tenderness, swelling, increased warmth or erythema. Shoulders:.?? Full range of motion without pain. No tenderness, weakness, swelling, increased warmth or erythema. Hips:.? Full range of motion without pain. Hip bursa:.? No tenderness. Knees:.?? Normal pain-free range of motion without tenderness, swelling, increased warmth or erythema.? There is no effusion or crepitation Ankles:.? Normal pain-free range of motion without tenderness, swelling, increased warmth or erythema. Feet:.? Normal pain-free range of motion without tenderness, swelling, increased warmth or erythema. Tender points:.? Mild tenderness to digital palpation at the occiput, trapezius, second rib, lateral epicondyle, knees, greater trochanter and gluteal area bilaterally. ? Results Reviewed Results Reviewed: 10/07/2023 CBC WBC 5.0, RBC 4.89, H GB 13.9, HCT 43.0 ESR 7 Creatinine 0.92, vitamin-D 22.1 03/06/2021 immunology TERESA 1: 40, RF negative, CCP negative Assessment & Plan Assessment & Plan (1) Osteoarthritis of right shoulder: Code(s): M19.011 - Primary osteoarthritis, right shoulder Qualifiers: Osteoarthritis type: primary Qualified Code(s): M19.011 - Primary osteoarthritis, right shoulder (2) Fibromyalgia: Code(s): M79.7 - Fibromyalgia (3) Trochanteric bursitis, right hip: Code(s): M70.61 - Trochanteric bursitis, right hip Plan #OA right shoulder: This is likely OA from her old injury. She did receive an injection about 2 months ago per patient. She has had PT in the past when encouraged patient to do PT exercises at home. She can continue to use diclofenac gel to the shoulder knee. Acetaminophen may also be beneficial. #Right trochanteric bursitis: Corticosteroid injection today Kenalog 40 mg, 1% lidocaine 2 mL. Aseptic technique, lateral approach patient tolerated procedure well. #Fibromyalgia: symptoms appear well managed at this visit. She can continue medication as prescribed. Encouraged light activity and stretches. Follow-up 1 month I spent 30 minutes reviewing history, evaluating patient and documenting Coding Level of Care Code Est Pt Level 3 (94402) Diagnoses Primary osteoarthritis of right shoulder M19.011 Osteoarthritis type: primary Fibromyalgia M79.7 Trochanteric bursitis, right hip M70.61
== END 2023-11-26 15:37 | disposition home or self-care (01) ==
PROVIDERS: PCP Internal Medicine; Visit Provider Nurse Practitioner Family
DX: M19.011 Primary osteoarthritis, right shoulder (principal); M79.7 Fibromyalgia; M70.61 Trochanteric bursitis, right hip
CPT/HCPCS: 99213

== ENCOUNTER → 2023-11-26 14:25 | Outpatient (BNVA) | payer OTHER, SELFPAY | PROVIDERS: PCP Internal Medicine; Visit Provider Nurse Practitioner Family | DX: M79.7 Fibromyalgia (principal); M19.011 Primary osteoarthritis, right shoulder; M70.61 Trochanteric bursitis, right hip; M54.31 Sciatica, right side | CPT/HCPCS: 99212 ==

== ENCOUNTER 2023-12-17 11:36 | Outpatient (AMB) | payer OTHER, SELFPAY ==
[2023-12-17 11:44] VITALS: BP 131/75; PULSE 72; RESP 16; O2SAT 95; BMI 28.8
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
== END 2023-12-17 11:48 | disposition home or self-care (01) ==
PROVIDERS: PCP Internal Medicine; Visit Provider Registered Nurse Emergency
DX: R29.898 Other symptoms and signs involving the musculoskeletal system (principal); N39.42 Incontinence without sensory awareness; R20.0 Anesthesia of skin; R20.2 Paresthesia of skin
CPT/HCPCS: 99213

== ENCOUNTER → 2023-12-17 11:36 | Outpatient (BNVA) | payer OTHER, SELFPAY | PROVIDERS: PCP Internal Medicine; Visit Provider Registered Nurse Emergency | DX: R20.0 Anesthesia of skin (principal); R20.2 Paresthesia of skin; R29.898 Other symptoms and signs involving the musculoskeletal system; N39.42 Incontinence without sensory awareness | CPT/HCPCS: 99212 ==

== ENCOUNTER 2024-01-06 09:20 | Outpatient (AMB) | payer OTHER, SELFPAY ==
--- NOTE | 2024-01-06 09:37 | MHC.OFFVIS ---
Vital Signs 01/06/24 09:50 Height 5 ft 7 in Weight 185 lb 10.067 oz BMI 29.1 BP 122/80 Blood Pressure Location Rt brachial Position Sitting Pulse 74 Pulse Source Pulse Oximeter Pulse Oximetry (%) 99 Oxygen Delivery Method Room Air Intake Visit Reasons: Right Hip Bursitis/FM/cm Intake Note: Patient last seen 11/26/23, presents today for follow up. 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 Ramez Campos yoF returns for follow-up s/p right trochanteric injection. She says this has resolved and she can sleep better. Ms. Ramez Campos yoF returns for evaluation of her fibromyalgia. She says joints are fairly stable with exception of the right shoulder which continues to bother her and lower back and new right sciatica. There is pain with lying on the are at night and she often have to lift her right arm the put it in position. She does take occasional naproxen for the right shoulder pain. She had been on sertraline and amitriptyline for the fibromyalgia and anxiety but decided to stop them for now. She thought she was taking too many medications. Other areas of pain include the hands, forearms, lower back, hips and knees. She continues on Amitriptyline 100 mg q.h.s., cyclobenzaprine 10 mg t.i.d. p.r.n., diclofenac sodium 1% sertraline 200 mg p.o. daily. --recent injection at pain management for lower back and sciatica --right shoulder injection 2 months ago [facility] Medical History (Updated 12/09/23 @ 17:53 by Kayleen Carson, [facility]) Trochanteric bursitis, right hip Lumbar degenerative disc disease Carpal tunnel syndrome of right wrist Rotator cuff injury Low back pain Lower extremity pain, bilateral Tinea corporis Obesity (BMI 30-39.9) Depression Anxiety Posttraumatic stress disorder Insomnia Fibromyalgia Vitamin D deficiency Pure hypercholesterolemia Surgical History History of facial surgery H/O unilateral salpingectomy History of cholecystectomy History of section Family History Father Alcohol abuse Mother Asthma Chronic mental illness Mental health disorder Social History Housing: Apartment Alcohol intake: never Patient Tobacco Use Status: Never used Tobacco e-Cigarette/Vaping Use: Never Used Second Hand Smoke Exposure: No service: No Current occupational status: retired Cognitive needs: No Hearing needs: No Vision needs: Yes (Glasses) Female Reproductive History Menstrual Age of Menarche: 11 Physical Exam Vital Signs: Last Vital Signs Pulse 74 01/06/24 09:50 BP 122/80 01/06/24 09:50 Pulse Ox 99 01/06/24 09:50 Oxygen Delivery Method Room Air 01/06/24 09:50 BMI result Body Mass Index 29.1 Vital signs reviewed. Constitutional: Non-toxic appearing. No acute distress. Well-developed and well-nourished. Cardio: Regular rate and rhythm. No murmurs, gallops, or rubs. No lower extremity edema. No JVD. Pulmonary: No respiratory distress. No accessory muscle usage. Musculoskeletal: Normal range of motion in joints throughout the body. No deformity or other signs of injury. Denies trochanteric tenderness Neuro: Alert and oriented x4. Cranial nerves 2-12 grossly intact. No focal deficits appreciated. Assessment & Plan Assessment & Plan (1) Trochanteric bursitis, right hip: Code(s): M70.61 - Trochanteric bursitis, right hip Category: Medical Plan #Right trochanteric bursitis: Corticosteroid injection given at last visit is therapeutic. No trochanteric tenderness on exam. Follow-up 6 months I spent 10 minutes reviewing chart, evaluating patient and documenting #OA right shoulder: This is likely OA from her old injury. She did receive an injection about 2 months ago per patient. She has had PT in the past when encouraged patient to do PT exercises at home. She can continue to use diclofenac gel to the shoulder knee. Acetaminophen may also be beneficial. #Fibromyalgia: symptoms appear well managed at this visit. She can continue medication as prescribed. Encouraged light activity and stretches. Coding Level of Care Code Est Pt Level 2 (00246) Diagnoses Trochanteric bursitis, right hip M70.61
[2024-01-06 09:50] VITALS: BP 122/80; PULSE 74; O2SAT 99; BMI 29.1
== END 2024-01-06 10:12 | disposition home or self-care (01) ==
PROVIDERS: Visit Provider Nurse Practitioner Family
DX: M70.61 Trochanteric bursitis, right hip (principal)
CPT/HCPCS: 99212

== ENCOUNTER → 2024-01-06 09:20 | Outpatient (BNVA) | payer OTHER, SELFPAY | PROVIDERS: Visit Provider Nurse Practitioner Family | DX: M70.61 Trochanteric bursitis, right hip (principal) | CPT/HCPCS: 99212 ==

== ENCOUNTER 2024-04-29 13:07 | Emergency (ER) | payer OTHER, SELFPAY ==
--- NOTE | 2024-04-29 13:09 | ED_ITS ---
HPI - General Adult General Chief complaint: Extremity Injury, Lower Stated complaint: r leg numbness pain Time Seen by Provider: 04/29/24 14:17 Source: patient and assessment nurse (Kenyan) Mode of arrival: ambulatory Limitations: language barrier (Kenyan speaking) History of Present Illness ED Provider: ANALIA DUKE PA-C HPI narrative: 48-year-old Kenyan-speaking female with past medical history significant for fibromyalgia, anxiety, depression, carpal tunnel syndrome, sciatica, right trochanteric bursitis presents to the ED today for evaluation of right lower back pain x months. Pain is localized to the right side of her lower back and extends down the posterior and lateral aspect of her right lower extremity. Admits it is difficult to find a comfortable position when sleeping at night. Denies trauma, injury or fall. Patient states she was diagnosed with sciatica 1 year ago. She has been prescribed multiple pain medications and has received steroid injections with improvement. Last injection was 4 months ago. She states her pain has been gradually increasing over the last few months. She was prescribed morphine for the pain however states she does not like how this makes her feel. She has not been taking any other medications for her sciatica. She has not completed physical therapy for this in the past. She states she has not attempted to contact her PCP or pain management doctor regarding further options. Denies numbness, tingling/weakness of the right lower extremity. Denies history of IV drug use. Denies history of spinal surgery. Denies bowel or bladder incontinence or retention, saddle anesthesia, dysuria, hematuria. Related Data Home Medications ?Medication ?Instructions ?Recorded ?Confirmed amitriptyline 100 mg tablet 100 mg PO BEDTIME 07/09/20 10/28/23 hydroxyzine pamoate 25 mg capsule 25 mg PO TID 07/09/20 10/28/23 sertraline 100 mg tablet 200 mg PO DAILY 07/09/20 10/28/23 Previous Rx's ?Medication ?Instructions ?Recorded diazepam 5 mg tablet 5 mg PO TID PRN anxiety 30 days 03/08/23 #90 tabs cholecalciferol (vitamin D3) 50 50 mcg PO DAILY 90 days #90 caps 10/28/23 mcg (2,000 unit) capsule cyclobenzaprine 10 mg tablet 10 mg PO TID PRN muscle spasm #30 10/28/23 tabs diclofenac sodium 1 % topical gel 2 g topical QID PRN pain #100 grams 12/27/23 (Arthritis Pain (diclofenac)) cyclobenzaprine 5 mg tablet 5 mg PO Q8H #7 tabs 04/29/24 lidocaine 5 % topical patch 1 patch topical DAILY #15 ea 04/29/24 (Lidoderm) Allergies Allergy/AdvReac Type Severity Reaction Status Date / Time tramadol [From ULTRAM] Allergy Severe ANAPHYLAXIS Verified 04/29/24 13:14 Review of Systems Review of Systems: Constitutional: No fever, chills, fatigue, night sweats, weight changes ENT/Mouth: No ear pain, hearing loss, nasal congestion, sinus pain, rhinorrhea, sore throat Eyes: No eye pain, swelling, redness, vision changes, discharge Cardio: No chest pain, palpitations, JOSEPH, orthopnea, peripheral edema Pulm: No SOB, cough, sputum, wheezing, dyspnea, hemoptysis GI: No nausea, vomiting, hematemesis, abdominal pain, diarrhea, constipation, hematochezia, melena : No irregular bleeding, dysuria, frequency, urgency, hesitancy, hematuria, flank pain, urinary flow changes, urinary incontinence or retention MSK: No neck pain, joint pain, myalgias, +right low back pain Skin: No lesions, rashes Neuro: No weakness, numbness, paresthesias, LOC, dizziness, headache Psych: No anxiety/panic, depression, SI/HI, AH/VH All other systems reviewed and are negative. [facility] Past Medical History Attestation statement: The following information was validated with the patient. Source: old records reviewed and nursing notes reviewed Medical History Trochanteric bursitis, right hip Lumbar degenerative disc disease Carpal tunnel syndrome of right wrist Rotator cuff injury Low back pain Lower extremity pain, bilateral Tinea corporis Obesity (BMI 30-39.9) Depression Anxiety Posttraumatic stress disorder Insomnia Fibromyalgia Vitamin D deficiency Pure hypercholesterolemia Surgical History History of facial surgery H/O unilateral salpingectomy History of cholecystectomy History of section Family History Family History Father Alcohol abuse Mother Asthma Chronic mental illness Mental health disorder Social History Social History Housing: Apartment Alcohol intake: never Patient Tobacco Use Status: Never used Tobacco e-Cigarette/Vaping Use: Never Used Second Hand Smoke Exposure: No Advance Directives: No Advance Directives Information Provided: No Do you have a plan to hurt others: No Plan service: No Current occupational status: retired Cognitive needs: No Hearing needs: No Vision needs: Yes (Glasses) Physical Exam ED Vital Signs: Vital Signs - 24 hr 04/29/24 13:12 04/29/24 15:05 04/29/24 15:17 Temperature 97.9 F 97.7 F 97.7 F Pulse Rate 84 66 66 Respiratory Rate 18 18 18 Blood Pressure 147/98 H 115/70 115/70 Pulse Oximetry 96 97 97 Oxygen Delivery Method Room Air Room Air Room Air BMI result Body Mass Index 29.0 Vital signs stable, afebrile. General: Well appearing, in no acute distress. Skin: Warm, dry, intact. No rashes or lesions. Head: Normocephalic, atraumatic. Cardiac: Chest wall symmetric. RRR. No MRG. No JVD. Lungs: Normal respiratory effort without accessory muscle use. CTA bilaterally. No rales, rhonchi, or wheezes.? Back: No midline spinous or paraspinal tenderness. No step off deformity. Positive right-sided back pain with raising lower extremity. Ext: Upper and lower extremities atraumatic, without tenderness, deformity, swelling or erythema. Full ROM throughout. Capillary refill <2 seconds in all extremities. Pulses 2+ equal and bilateral. Neuro: AOx3. Normal speech. CN 2-12 grossly intact. Strength 5/5 intact throughout. No saddle anesthesia. Sensation intact to light touch. NV intact distally. Reflexes 2+ bilaterally. Ambulating with steady gait. Psych: Appropriate mood and affect. Responds appropriately to questions. Course Course Course Narrative: This is an RME performed by Erna Barber CNP: Additional HPI, ROS, PE not included below will be deferred to primary provider. Patient is a 48-year-old female who presents for evaluation of pain and numbness to the right lower leg. Acute on chronic. Worse today upon awakening, without notable precipitating event. She has been prescribed morphine in the past, she states that she does not take this as it makes her significantly tired and does not alleviate the pain when she awakens. Of note she has been evaluated in the past for similar symptoms, most recently following with pain management, with office visits in September and November of 2023 for numbness and tingling of the right lower extremity for well she has underwent testing with MRI and EMG; indicating right L5-S1 radiculopathy was treated with epidural steroid injection. Medications Administered Discontinued Medications Generic Name Dose Route Start Last Admin Trade Name Rashi PRN Reason Stop Dose Admin Ketorolac Tromethamine 30 mg 04/29/24 14:41 04/29/24 15:02 Ketorolac Tromethamine 30 Mg/Ml Vial IM 04/29/24 14:42 30 mg ONCE ONE Administration Lidocaine 1 patch 04/29/24 14:41 04/29/24 15:02 Lidocaine 4 % Patch Adh..Patch TRANSDERMA 04/29/24 14:42 1 patch ONCE ONE Administration Protocol Medical Decision Making Medical Decision Making MDM Narrative: 48-year-old Kenyan-speaking female with past medical history significant for fibromyalgia, anxiety, depression, carpal tunnel syndrome, sciatica, right trochanteric bursitis presents to the ED today for evaluation of right lower back pain x months. Vital signs stable. She is nontoxic-appearing and in no acute distress. On exam, there is no midline spinous tenderness or step-off deformity. There is no paraspinal muscle tenderness to palpation. Sensation intact to light touch throughout. Strength 5/5 intact throughout. 2+ patellar DTRs bilaterally. Ambulating with slow but steady gait. She does have a positive straight leg raise causing right lower back pain when raising the left lower extremity. Differential diagnosis includes sciatica, arthritis, fibromyalgia, bursitis. Presentation not consistent with cauda equina, epidural abscess, cord compression, Guillain-[place]. Plan for pain control and disposition. Differential Diagnosis Differential Diagnoses: The differential diagnosis associated with the presenta tion includes as above Admission/Observation Not indicated Prescription Management I considered prescription management with: Pain Medication Chronic Conditions Patient?s care impacted by: Other (Sciatica, bursitis) Social Determinants Patient?s care significantly limited by Social Determinants of Health including: Other Social Determinant of Health Critical Care Time Critical Care Time Critical Care Time: No Discharge Plan Discharge Clinical Impression: Sciatica of right side Patient Disposition: Home, Self-Care Instructions: Sciatica (ED), Lower Back Exercises (ED) Additional Instructions: You were seen in the ED today for your sciatica. I recommend you take 600mg ibuprofen every 6 hours or tylenol 650mg every 6 hours as needed for pain. If needed, you can alternate these medications so that you take one medication every 3 hours. For example, at noon take ibuprofen, then at 3pm take tylenol, then at 6pm take ibuprofen. Flexeril is a muscle relaxer. Take this at night as it makes you drowsy. Do not drive, drink alcohol, or operate machinery while taking it. Lidoderm patches are numbing patches. Apply to painful areas. It was important that you follow up with pain management as injections help to last time. Call them on Wednesday to schedule an appointment. They will not call you. Pain medications only control your pain and do not fix the underlying cause of your pain. Please reach out to your primary care provider for physical therapy referral. Return with new or worsening symptoms. In the case of an emergency call 911. Return to the Emergency Department if you experience worsening back pain, difficulty walking, fevers, numbness, tingling, incontinence, or any other concerning symptoms. In the case of an emergency call 911. Prescriptions: New cyclobenzaprine 5 mg tablet 5 mg PO Q8H Qty: 7 0RF lidocaine [Lidoderm] 5 % adhesive patch,medicated 1 patch topical DAILY Qty: 15 0RF Rx Instructions: leave on most painful area for up to 12 hrs No Action diazepam 5 mg tablet 5 mg PO TID PRN (Reason: anxiety) 30 Days Qty: 90 0RF diclofenac sodium [Arthritis Pain (diclofenac)] 1 % gel 2 g topical QID PRN (Reason: pain) Qty: 100 0RF Rx Instructions: apply to single elbow, wrist or hand; for hand includes palm/fingers/back of hand amitriptyline 100 mg tablet 100 mg PO BEDTIME sertraline 100 mg tablet 200 mg PO DAILY hydroxyzine pamoate 25 mg capsule 25 mg PO TID cholecalciferol (vitamin D3) 50 mcg (2,000 unit) capsule 50 mcg PO DAILY 90 Days Qty: 90 3RF cyclobenzaprine 10 mg tablet 10 mg PO TID PRN (Reason: muscle spasm) Qty: 30 0RF Referrals: [facility] [Provider Group] Charles Way MD [Primary Care Provider] - Interventions: ED Discharge Assessment Last Done: 04/29/24 15:17 Discharge Date/Time: 04/29/24 15:20 Print Language: Kenyan
[2024-04-29 13:12] VITALS: BP 147/98; PULSE 84; RESP 18; TEMP 36.6; O2SAT 96; BMI 29.0
[2024-04-29] MEDS: Ketorolac Tromethamine 30 MG/ML VIAL IM (15:02)
[2024-04-29] MEDS: Lidocaine 4 % Patch ADH..PATCH 1 PATCH TRANSDERMA (15:02)
[2024-04-29 15:05] VITALS: BP 115/70; PULSE 66; RESP 18; TEMP 36.5; O2SAT 97
[2024-04-29 15:17] VITALS: BP 115/70; PULSE 66; RESP 18; TEMP 36.5; O2SAT 97
== END 2024-04-29 15:20 | disposition home or self-care (01) ==
PROVIDERS: Emergency Provider Emergency Medicine; PCP Internal Medicine
DX: M54.31 Sciatica, right side (principal); E78.00 Pure hypercholesterolemia, unspecified; N39.42 Incontinence without sensory awareness
CPT/HCPCS: 96372; 99283; 99284; J1885

== ENCOUNTER 2024-05-04 13:22 | Outpatient (AMB) | payer OTHER, SELFPAY ==
[2024-05-04 13:47] VITALS: BP 121/84; PULSE 69; O2SAT 97; BMI 29.0
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
== END 2024-05-04 14:01 | disposition home or self-care (01) ==
PROVIDERS: PCP Internal Medicine; Visit Provider Registered Nurse Emergency
DX: R29.898 Other symptoms and signs involving the musculoskeletal system (principal); N39.42 Incontinence without sensory awareness; R20.0 Anesthesia of skin; R20.2 Paresthesia of skin
CPT/HCPCS: 99213; G2211

== ENCOUNTER → 2024-05-04 13:22 | Outpatient (BNVA) | payer OTHER, SELFPAY | PROVIDERS: PCP Internal Medicine; Visit Provider Registered Nurse Emergency | DX: R29.898 Other symptoms and signs involving the musculoskeletal system (principal); N39.42 Incontinence without sensory awareness; R20.0 Anesthesia of skin; R20.2 Paresthesia of skin | CPT/HCPCS: 99212 ==

== ENCOUNTER 2024-05-12 08:20 | Outpatient (AMB) | payer OTHER, SELFPAY ==
[2024-05-12 08:45] VITALS: BP 108/86; PULSE 86; O2SAT 97; BMI 29.0
--- NOTE | 2024-05-12 08:45 | MHC.PC.OV ---
Vital Signs 05/12/24 08:45 Height 5 ft 7 in Weight 185 lb 6 oz BMI 29.0 BP 108/86 Blood Pressure Location Lt brachial Position Sitting Pulse 86 Pulse Source Pulse Oximeter Pulse Oximetry (%) 97 Oxygen Delivery Method Room Air Intake Visit Reasons: EDF [facility] [place] 04/29 Sciatic nerve pain Translator/Interpreter Required: No Accompanied by: Self / Same As Patient Allergies tramadol [From ULTRAM] Allergy (Severe, Verified 05/12/24 08:46) ANAPHYLAXIS Tobacco use date assessed: 05/12/24 Dental Screening Dental Screen Date: 05/12/24 Did you have a dental visit in the last 12 months?: Yes Did you have a dental problem in the last 6 months where you did not have access to dental care?: No Was dental information given to patient?: Patient has dentist HPI HPI Comments History of Present Illness Details 48 y/o female patient who presents to the clinic today for ED follow up. She was admitted at [facility] [place] on 04/29/24 for Right sided lower back pain with Sciatica nerve involvement. She was discharged home the same day. She was prescribed Prednisone taper, Flexeril and Lidocaine patches. She saw pain management clinic 05/05/24 and she is scheduled for Steroid Injections for May pending insurance approval. Had an MRI 09/2023. IMPRESSION: There is multilevel degenerative spondylosis of the lumbar spine. A right central extrusion at L5-S1 causes asymmetric compression of the right traversing S1 nerve roots. There is also a shallow right central protrusion at L4-L5 causing compression of both traversing L5 nerve roots, greater on the right. No canal stenosis. [facility] Medical History Trochanteric bursitis, right hip Lumbar degenerative disc disease Carpal tunnel syndrome of right wrist Rotator cuff injury Low back pain Lower extremity pain, bilateral Tinea corporis Obesity (BMI 30-39.9) Depression Anxiety Posttraumatic stress disorder Insomnia Fibromyalgia Vitamin D deficiency Pure hypercholesterolemia Surgical History History of facial surgery H/O unilateral salpingectomy History of cholecystectomy History of section Family History Father Alcohol abuse Mother Asthma Chronic mental illness Mental health disorder Social History Housing: Apartment Alcohol intake: never Patient Tobacco Use Status: Never used Tobacco e-Cigarette/Vaping Use: Never Used Second Hand Smoke Exposure: No service: No Current occupational status: retired Cognitive needs: No Hearing needs: No Vision needs: Yes (Glasses) Female Reproductive History Menstrual Age of Menarche: 11 Questionnaire PHQ-9 Over the last 2 weeks, how often have you been bothered by any of the following problems? 1. Little interest or pleasure in doing things: not at all 2. Feeling down, depressed, or hopeless: more than half the days 3. Trouble falling or staying asleep, or sleeping too much: more than half the days 4. Feeling tired or having little energy: more than half the days 5. Poor appetite or overeating: more than half the days 6. Feeling bad about yourself - or that you are a failure or have let yourself or your family down: not at all 7. Trouble concentrating on things, such as reading the newspaper or watching television: more than half the days 8. Moving or speaking so slowly that other people could have noticed. Or the opposite - being so fidgety or restless that you have been moving around a lot more than usual: more than half the days 9. Thoughts that you would be better off or of hurting yourself in some way: not at all Total score: 12 Depression Screening Interpretation: Positive Depression Screening Follow-up: Existing condition and In treatment Depression Screening Done: Yes [id number] - PHQ-9 Billing: Yes Source: Developed by Drs. Vlad Marquez, Valentine Jose, Luís Fuller and colleagues, with an educational shantell from [employer] Thrive Questionnaire Date Thrive assessed: 05/12/24 I am a: Patient What is your living situation today?: I have a steady place to live Within the past 12 months, did the food you bought not last and you didn't have the money to get more?: Never true Within the past 12 months, did you worry whether your food would run out before you got money to buy more?: Never true Do you have trouble paying for medicines?: No Do you have trouble getting transportation to medical appointments?: No Do you have trouble paying your heating and electricity bill?: No Do you have trouble taking care of your child, family member or friend?: No Do you have trouble with day-to-day activities such as bathing, preparing meals, shopping, managing finances, etc.?: No Are you currently unemployed and looking for a job?: No Are you interested in more education?: No Please select the resources that you would like help with: None Currently or been in a relationship where the following occur: No concerns reported THRIVE Score: 0 AUDIT C Alcohol Use Questionnaire (AUDIT-C) 1. How often do you have a drink containing alcohol?: Never 3. How often do you have six or more drinks on one occasion?: Never Total Score: 0 Score Reviewed/Action Taken: Yes PRISCILLA-7 AMB Questionnaire PRISCILLA-7 Date PRISCILLA - 7 assessed: 05/12/24 Feeling nervous, anxious, or on edge: 0 = Not at all Not being able to stop or control worryin = Not at all Worrying too much about different things: 0 = Not at all Trouble relaxin = Not at all Being so restless that it is hard to sit still: 0 = Not at all Becoming easily annoyed or irritable: 0 = Not at all Feeling afraid as if something awful might happen: 0 = Not at all Total PRISCILLA-7 score (0-4 normal; 5-9 mild; 10-14 moderate; 15-21 severe): 0 Source: Developed by Drs. Vlad Marquez, Valentine Jose, Luís Fuller and colleagues, with an educational shantell from [employer] Review of Systems Const All systems reviewed & are unremarkable except as noted in HPI and below Physical exam (Primary Care) Vital Signs: Last Vital Signs Pulse 86 05/12/24 08:45 BP 108/86 05/12/24 08:45 Pulse Ox 97 05/12/24 08:45 Oxygen Delivery Method Room Air 05/12/24 08:45 BMI result Body Mass Index 29.0 Tobacco/Smoking Status: Tobacco use Status Tobacco use date assessed 05/12/24 05/12/24 08:49 Patient Tobacco Use Status Never used Tobacco 05/12/24 08:49 e-Cigarette/Vaping Use Never Used 05/12/24 08:49 PHQ-9: PHQ-9 Score PHQ-9: Total score 12 05/12/24 08:49 Depression Screening Interpretation: Positive Depression Screening Follow-up: Existing condition and In treatment Thrive Assessment: Date of Thrive Assessment Date Thrive assessed 05/12/24 05/12/24 08:49 Currently or been in a relationship where the following occur: No concerns reported Const General: cooperative and no acute distress Nutritional Appearance: obese Orientation/consciousness: patient oriented x3 Back/Spine/Pelvis Back: back tenderness Thoracic/Lumbar Spine: thoraco-lumbar ROM normal, thoraco-lumbar spasm and lumbar spinal tenderness Neuro General: patient oriented x3, gait normal and moves all extremities Extrem General: Yes normal to inspection and Yes full ROM Left upper extremity: normal to inspection and full ROM Right lower extremity: normal to inspection and full ROM Left lower extremity: normal to inspection and full ROM Psych Speech and movement: Normal speech and movement present Assessment and Plan Assessment & Plan (1) Chronic right-sided lumbar radiculopathy: Code(s): M54.16 - Radiculopathy, lumbar region Plan: Continue taking prescribed medications F/U with Pain management as scheduled Coding Level of Care Code Est Pt Level 4 (08963) Diagnoses Chronic right-sided lumbar radiculopathy M54.16 Time Spent (min) 20 Comment Spent reviewing hospital notes and Patient education.
== END 2024-05-12 09:14 | disposition home or self-care (01) ==
PROVIDERS: PCP Internal Medicine; Visit Provider Nurse Practitioner Family
DX: M54.16 Radiculopathy, lumbar region (principal)
CPT/HCPCS: 99214

== ENCOUNTER 2024-06-13 06:17 | Outpatient (REF) | payer OTHER, SELFPAY | END 2024-06-13 06:18 | disposition home or self-care (01) | LOC: CF 06:17 | PROVIDERS: Visit Provider Anesthesiology | DX: M51.369 Other intervertebral disc degeneration, lumbar region without mention of lumbar back pain or lower extremity pain (principal); M54.16 Radiculopathy, lumbar region; M54.17 Radiculopathy, lumbosacral region | CPT/HCPCS: 64483; J2003; J3301; Q9967 ==

== ENCOUNTER 2024-06-13 09:00 | Outpatient (AMB) | payer OTHER, SELFPAY ==
--- NOTE | 2024-06-13 09:03 | MHC.OFFVIS ---
Vital Signs 06/13/24 10:05 06/13/24 10:05 Height 5 ft 7 in 5 ft 7 in Weight 185 lb 6 oz 185 lb 6 oz BMI 29.0 29.0 BP 129/83 120/82 Blood Pressure Location Lt brachial Lt brachial Position Sitting Sitting Respiration 16 16 Pulse 81 79 Pulse Source Pulse Oximeter Pulse Oximeter Pulse Oximetry (%) 98 97 Oxygen Delivery Method Room Air Room Air Comment pre-op post-op Intake Visit Reasons: RIGHT L5, S1 TFESI Allergies tramadol [From [facility]] Allergy (Severe, Verified 06/13/24 09:03) ANAPHYLAXIS [facility] Medical History Trochanteric bursitis, right hip Lumbar degenerative disc disease Carpal tunnel syndrome of right wrist Rotator cuff injury Low back pain Lower extremity pain, bilateral Tinea corporis Obesity (BMI 30-39.9) Depression Anxiety Posttraumatic stress disorder Insomnia Fibromyalgia Vitamin D deficiency Pure hypercholesterolemia Surgical History History of facial surgery H/O unilateral salpingectomy History of cholecystectomy History of section Family History Father Alcohol abuse Mother Asthma Chronic mental illness Mental health disorder Social History Housing: Apartment Alcohol intake: never Patient Tobacco Use Status: Never used Tobacco e-Cigarette/Vaping Use: Never Used Second Hand Smoke Exposure: No service: No Current occupational status: retired Cognitive needs: No Hearing needs: No Vision needs: Yes (Glasses) Female Reproductive History Menstrual Age of Menarche: 11 Physical Exam Vital Signs: Last Vital Signs Pulse 79 06/13/24 10:05 Resp 16 06/13/24 10:05 BP 120/82 06/13/24 10:05 Pulse Ox 97 06/13/24 10:05 Oxygen Delivery Method Room Air 06/13/24 10:05 BMI result Body Mass Index 29.0 Assessment & Plan Assessment & Plan (1) Radiculopathy, lumbar region: Code(s): M54.16 - Radiculopathy, lumbar region Category: Medical (2) Radiculopathy, lumbosacral region: Code(s): M54.17 - Radiculopathy, lumbosacral region Category: Medical Plan Transforaminal right L5-S1 epidural steroid injection Informed consent was thoroughly explained to the patient before the procedure.? The patient came to the operating room.? She was positioned prone on operating table with a pillow under his abdomen.? Time-out was performed delineating correct site and side of the procedure, nature of the injection, name and date of of the patient. The lower back of the patient was prepped with ChloraPrep and draped with sterile utility towels.? C-arm was brought over the operating field and sq picture of L5 vertebra was demonstrated on the screen.? The right side was chosen as the side of the injection.? Tilting machine ipsilateral to the right at the level of L4 the most prominent picture of the left pedicle was obtained on the screen.? 3 mm below the level of the lowest point of the pedicle projection to the skin small amount of lidocaine 1% 3-4 cc was injected to anesthetize the skin.? After that 5 in 22 gauge Quincke point needle was inserted through the skin wheal and was advanced to were the L5-S1 foramina on anterior posterior , lateral and oblique views intermittently.? When needle entered foramina injection of the contrast performed demonstrating epidural and perineural spread of the contrast. No intrathecal and no intravascular spread of the contrast was noted on the screen. No intravascular nor intrathecal spread of the contrast was noted. After that preservative-free lidocaine 1% 3 mL mixed with Kenalog 20 mg was injected into the needle. Upon completion of the procedure the needle was withdrawn sterile Band-Aids were applied Patient tolerated procedure well she was taken outside of the operating room where he recovered uneventfully.? She went home without immediate complications Orders: Orders FL guidance in treatment room 06/13/24 M51.36 - Other intervertebral disc degeneration, lumbar region Coding Level of Care Code Procedure Only Diagnoses Radiculopathy, lumbar region M54.16 Radiculopathy, lumbosacral region M54.17
[2024-06-13 10:05] VITALS: BP 120/82; BP 129/83; PULSE 79; PULSE 81; RESP 16; O2SAT 97; O2SAT 98; BMI 29.0
== END 2024-06-13 11:28 | disposition home or self-care (01) ==
PROVIDERS: PCP Internal Medicine; Visit Provider Anesthesiology
DX: M54.16 Radiculopathy, lumbar region (principal); M54.17 Radiculopathy, lumbosacral region
CPT/HCPCS: 64483

== ENCOUNTER 2024-07-06 08:50 | Outpatient (AMB) | payer OTHER, SELFPAY ==
[2024-07-06 09:01] VITALS: BP 130/72; PULSE 71; O2SAT 97; BMI 28.1
--- NOTE | 2024-07-06 09:01 | A.OFFVIS_ITS ---
Vital Signs 07/06/24 09:01 Height 5 ft 7 in Weight 179 lb 3.773 oz BMI 28.1 BP 130/72 Blood Pressure Location Lt brachial Position Sitting Pulse 71 Pulse Source Pulse Oximeter Pulse Oximetry (%) 97 Oxygen Delivery Method Room Air Intake Visit Reasons: FM/Hip Bursitis/cm Intake Note: Patient presents today for follow up on Trochanteric bursitis, right hip, and Fibromyalgia. She was last seen in the office by Kayleen Carson on 01/06/24. Patient is requesting refills on Lidocaine patches, and diclofenac gel. Patient states she has painful right foot pain today. Associate Publisher Name: Margaret [id number] Allergies tramadol [From ULTRAM] Allergy (Severe, Verified 06/13/24 09:03) ANAPHYLAXIS HPI Comments Details: Patient is a 48-year-old female with depression and a diagnosis of fibromyalgia here today for follow-up Interval History: Patient last seen 01/06/2024 with Kayleen Carson. At that time she had noted resolution of her right trochanteric bursitis post injection and was able to sleep better at night. She was fairly stable overall but continued to have pain. 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 Diclofenac 1% topical [facility] Medical History Trochanteric bursitis, right hip Lumbar degenerative disc disease Carpal tunnel syndrome of right wrist Rotator cuff injury Low back pain Lower extremity pain, bilateral Tinea corporis Obesity (BMI 30-39.9) Depression Anxiety Posttraumatic stress disorder Insomnia Fibromyalgia Vitamin D deficiency Pure hypercholesterolemia Surgical History History of facial surgery H/O unilateral salpingectomy History of cholecystectomy History of section Family History Father Alcohol abuse Mother Asthma Chronic mental illness Mental health disorder Social History Housing: Apartment Alcohol intake: never Patient Tobacco Use Status: Never used Tobacco e-Cigarette/Vaping Use: Never Used Second Hand Smoke Exposure: No service: No Current occupational status: retired Cognitive needs: No Hearing needs: No Vision needs: Yes (Glasses) Female Reproductive History Menstrual Age of Menarche: 11 Physical Exam Vital Signs: Last Vital Signs Pulse 71 07/06/24 09:01 BP 130/72 07/06/24 09:01 Pulse Ox 97 07/06/24 09:01 Oxygen Delivery Method Room Air 07/06/24 09:01 BMI result Body Mass Index 28.1 Physical Examination CONSTITUITIONAL Patient alert and cooperative. Well appearing and in no apparent painful distress HEENT Conjunctiva and sclera clear. ?Pupils equal round and reactive to light. ?No lymphadenopathy. ?Normal dentition. No oral or nasal ulcers noted. No evidence of discoid rash to the riley of ears CHEST/RESPIRATORY SYSTEM Normal respiratory effort and able to speak in complete sentences. ?Clear to auscultation bilaterally. ?No crackles, rales, rhonchi, wheezes heard. CARDIAC SYSTEM Regular rate and rhythm. ?S1 and S2 heard no murmurs. 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 ?No deformities noted. ?No synovitis noted to the MCPs, PIPs or DIPs. ?No tenderness to palpation of these joints. Wrists: ?Full range of motion at the wrists without pain. ?No tenderness to palpation or synovitis noted to the wrists. Elbows: Full range of motion without pain. No tenderness, weakness, swelling, increased warmth or erythema. Shoulders: Full range of motion without pain. No tenderness, weakness, swelling, increased warmth or erythema. Hips: Full range of motion without pain. Hip bursa: No tenderness to palpation Knees: ?Full range of motion. ?No tenderness, swelling, increased warmth or erythema.?No effusion or crepitations Ankles: Full range of motion. ?No tenderness, swelling, increased warmth or erythema.? Feet: ?Negative squeeze test. ?No tenderness to palpation or swelling of the MTPs. Tender points:??No tenderness to palpation of the neck, shoulders, chest, elbows, hips, buttocks or knees. SKIN Skin intact without rashes. Results Reviewed Results Reviewed: Laboratory Tests 10/07/23 08:06 ESR 7 Assessment & Plan Assessment & Plan (1) Fibromyalgia: Code(s): M79.7 - Fibromyalgia Category: Medical Plan: #Fibromyalgia Had a long discussion with the patient about the diagnosis of fibromyalgia. Also let her know that she does not have a diagnosis of rheumatoid arthritis but osteoarthritis unexplained the difference between the 2. In Discussed lifestyle modifications that can be made fibromyalgia. Continue amitriptyline (2) Carpal tunnel syndrome of right wrist: Code(s): G56.01 - Carpal tunnel syndrome, right upper limb Category: Medical Plan: #CTS Recommended splints Plan I spent 30 minutes reviewing the record and labs, seeing the patient, discussing the treatment plan and documenting in the medical record ? Coding Level of Care Code Est Pt Level 4 (28731) Diagnoses Fibromyalgia M79.7 Carpal tunnel syndrome of right wrist G56.01
== END 2024-07-06 09:50 | disposition home or self-care (01) ==
LOC: HO.RHE 08:51
PROVIDERS: PCP Internal Medicine; Visit Provider Student in an Organized Health Care Education/Training Program
DX: M79.7 Fibromyalgia (principal); G56.01 Carpal tunnel syndrome, right upper limb
CPT/HCPCS: 99214

== ENCOUNTER → 2024-07-06 08:50 | Outpatient (BNVA) | payer OTHER, SELFPAY | PROVIDERS: PCP Internal Medicine; Visit Provider Student in an Organized Health Care Education/Training Program | DX: M70.61 Trochanteric bursitis, right hip (principal); M79.7 Fibromyalgia; G56.01 Carpal tunnel syndrome, right upper limb | CPT/HCPCS: 99212 ==

== ENCOUNTER 2024-07-07 08:47 | Outpatient (AMB) | payer OTHER, SELFPAY ==
[2024-07-07 09:16] VITALS: BP 145/84; PULSE 65; O2SAT 96; BMI 29.0
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
== END 2024-07-07 09:33 | disposition home or self-care (01) ==
PROVIDERS: PCP Internal Medicine; Visit Provider Registered Nurse Emergency
DX: M54.17 Radiculopathy, lumbosacral region (principal); R29.898 Other symptoms and signs involving the musculoskeletal system; N39.42 Incontinence without sensory awareness; R20.0 Anesthesia of skin; R20.2 Paresthesia of skin
CPT/HCPCS: 99213; G2211

== ENCOUNTER → 2024-07-07 08:47 | Outpatient (BNVA) | payer OTHER, SELFPAY | PROVIDERS: PCP Internal Medicine; Visit Provider Registered Nurse Emergency | DX: M54.17 Radiculopathy, lumbosacral region (principal); R29.898 Other symptoms and signs involving the musculoskeletal system; R20.0 Anesthesia of skin; R20.2 Paresthesia of skin; N39.42 Incontinence without sensory awareness | CPT/HCPCS: 99212 ==

== ENCOUNTER 2024-07-13 08:46 | Outpatient (AMB) | payer OTHER, SELFPAY ==
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
== END 2024-07-13 09:44 | disposition home or self-care (01) ==
PROVIDERS: PCP Internal Medicine; Referring Provider Registered Nurse Emergency; Visit Provider Physician Assistant
DX: M54.17 Radiculopathy, lumbosacral region (principal)
CPT/HCPCS: 99204

== ENCOUNTER → 2024-07-13 08:46 | Outpatient (BNVA) | payer OTHER, SELFPAY | PROVIDERS: PCP Internal Medicine; Referring Provider Registered Nurse Emergency; Visit Provider Physician Assistant | DX: M54.17 Radiculopathy, lumbosacral region (principal) | CPT/HCPCS: 99202 ==

== ENCOUNTER 2024-09-12 07:51 | Outpatient (AMB) | payer OTHER, SELFPAY ==
--- NOTE | 2024-09-12 08:32 | MHC.OFFVIS ---
Vital Signs 09/12/24 08:39 Height 5 ft 7 in Weight 198 lb 3.129 oz BMI 31.0 BP 124/80 Blood Pressure Location Rt brachial Position Sitting Pulse 71 Pulse Source Pulse Oximeter Pulse Oximetry (%) 97 Oxygen Delivery Method Room Air Intake Visit Reasons: Pain in my shoulder and on my right leg Intake Note: Patient presents for right shoulder and right leg pain. Mailing Section Clerk Required: Yes Mailing Section Clerk Language: Advertising Associate Services: Mailing Section Clerk Present Mailing Section Clerk Name: [id number] [id number] Information Interpreted: non-clinical & clinical Allergies tramadol [From ULTRAM] Allergy (Severe, Verified 09/12/24 08:37) ANAPHYLAXIS HPI Comments Details: Patient is a 48-year-old female with depression and a diagnosis of fibromyalgia here today for follow-up Interval History: Patient last seen 07/06/24 with me. At that time she was complaining of numbness in the hands involving the lateral 3 digits especially at night and widespread pains Diagnosed with carpal tunnel and recommended splinting. Today, complains of right shoulder and right leg pain. Can't sleep because of the pain Has been using splints and the topical diclofenac and this has been helping. Rheumatologic History: Diagnosed with fibromyalgia and OA involving the AC joint and L spine Current Rheumatology Medication(s): Amitriptyline 100 mg every night Cyclobenzaprine 10 mg 3 times a day p.r.n. Diclofenac 1% topical [facility] Medical History Trochanteric bursitis, right hip Lumbar degenerative disc disease Carpal tunnel syndrome of right wrist Rotator cuff injury Low back pain Lower extremity pain, bilateral Tinea corporis Obesity (BMI 30-39.9) Depression Anxiety Posttraumatic stress disorder Insomnia Fibromyalgia Vitamin D deficiency Pure hypercholesterolemia Surgical History History of facial surgery H/O unilateral salpingectomy History of cholecystectomy History of section Family History Father Alcohol abuse Mother Asthma Chronic mental illness Mental health disorder Social History Housing: Apartment Alcohol intake: never Patient Tobacco Use Status: Never used Tobacco e-Cigarette/Vaping Use: Never Used Second Hand Smoke Exposure: No service: No Current occupational status: retired Cognitive needs: No Hearing needs: No Vision needs: Yes (Glasses) Female Reproductive History Menstrual Age of Menarche: 11 Review of Systems Const Details: Review of Systems Constitutional: Denies fever, chills, weight loss ENT: Denies vision changes, eye pain or eye redness, dental caries, dry mouth GI: Denies nausea, vomiting, diarrhea, abdominal pain, change in BM Pulm: Denies SOB, JOSEPH, hemoptysis, wheezing Cards: Denies chest pain, palpitations Skin: Denies Raynaud's, rash, nail changes, photosensitivity, GASATERIA ATTENDANT: Denies headaches, weakness, paresthesias, recurrent falls MSK: as per HPI All other systems reviewed and are unremarkable except noted above Physical Exam Vital Signs: Last Vital Signs Pulse 71 09/12/24 08:39 BP 124/80 09/12/24 08:39 Pulse Ox 97 09/12/24 08:39 Oxygen Delivery Method Room Air 09/12/24 08:39 BMI result Body Mass Index 31.0 Physical Examination CONSTITUITIONAL Patient alert and cooperative. Well appearing and in no apparent painful distress HEENT Conjunctiva and sclera clear. ?Pupils equal round and reactive to light. ?No lymphadenopathy. ? CHEST/RESPIRATORY SYSTEM Normal respiratory effort and able to speak in complete sentences. ?Clear to auscultation bilaterally. ?No crackles, rales, rhonchi, wheezes heard. CARDIAC SYSTEM Regular rate and rhythm. ?S1 and S2 heard no murmurs. ?Radial pulses intact bilaterally MSK Tenderness to palpation of the right AC joint Tenderness to palpation of the right greater trochanter SKIN Skin intact without rashes. Office Procedures AMB Joint Injection/Aspiration Joint Injection/Aspiration Details: Procedure was explained to the patient and consent was obtained. ? The area of interest was identified and confirmed with patient. ?This was subsequently cleaned with chlorhexidine x3. ? The area was then anesthetized using ethyl chloride spray. 40 mg Kenalog with 1 cc 1% lidocaine was injected without issue. ?Minimal to no bleeding. ?Patient tolerated procedure. Primary Site: other (Right greater trochanter) Prep: site was prepped using aseptic technique and ethochloride spray was applied Injected: 40 mg of, Kenalog, with 1 mL of, 1% plain lidocaine and other (Greater trochanteric bursa) Approach Used: other Procedure: The patient tolerated the procedure well Coding 51324 - Glenohumeral/Tronchanteric Bursa/Intraarticular Procedure code (CPT) selection complete AMB Joint Injection/Aspiration Joint Injection/Aspiration Details: Procedure was explained to the patient and consent was obtained. ? The area of interest was identified and confirmed with patient. ?This was subsequently cleaned with chlorhexidine x3. ? The area was then anesthetized using ethyl chloride spray. 40 mg Kenalog with 1 cc 1% lidocaine was injected without issue. ?Minimal to no bleeding. ?Patient tolerated procedure. Primary Site: right shoulder Prep: site was prepped using aseptic technique and ethochloride spray was applied Injected: 40 mg of, Kenalog, with 1 mL of, 1% plain lidocaine and in the joint Approach Used: anterior Procedure: The patient tolerated the procedure well Coding 47704 - Acromioclavicular Procedure code (CPT) selection complete Office Meds lidocaine (PF) 10 mg/mL (1 %) injection solution Performing Provider: Haven Amezquita MD Performing Location: [facility] [place] [facility] Administered by: Haven Amezquita MD on 09/12/24 09:18 Dose Route Admin Location Dispensed Lot Number Expiration Date [facility] Marketing Technology Coordinator 10 mg Infiltration 2 mL [id number] 11/28/26 19536-853-90 [employer] Kenalog 40 mg/mL suspension for injection Performing Provider: Haven Amezquita MD Performing Location: [facility] [place] [facility] Administered by: Haven Amezquita MD on 09/12/24 09:18 Dose Route Admin Location Dispensed Lot Number Expiration Date [facility] Marketing Technology Coordinator 40 mg intrabursal 1 mL [id number] 02/27/26 [address]-6 [employer] lidocaine (PF) 10 mg/mL (1 %) injection solution Performing Provider: Haven Amezquita MD Performing Location: [facility] [place] [facility] Administered by: Haven Amezquita MD on 09/12/24 09:21 Dose Route Admin Location Dispensed Lot Number Expiration Date [facility] Marketing Technology Coordinator 10 mg intra-articular 2 mL [id number] 11/28/26 10717-289-71 [employer] Kenalog 40 mg/mL suspension for injection Performing Provider: Haven Amezquita MD Performing Location: [facility] [place] [facility] Administered by: Haven Amezquita MD on 09/12/24 09:21 Dose Route Admin Location Dispensed Lot Number Expiration Date [employer] Marketing Technology Coordinator 40 mg intra-articular 1 mL [id number] 02/27/26 [address]-9 [employer] Results Reviewed Results Reviewed: Laboratory Tests 10/07/23 08:06 WBC 5.0 RBC 4.89 Hgb 13.9 Hct 43.0 Plt Count 282 ESR 7 Sodium 142 Potassium 4.1 Chloride 105 Carbon Dioxide 30 H BUN 14 Creatinine 0.92 AST 18 ALT 20 Alkaline Phosphatase 77 Total Protein 7.4 Albumin 4.3 25-OH Vitamin D Total 22.1 L Right Shoulder MRI 06/19/23 FINDINGS: ROTATOR CUFF: [id number] generalized rotator cuff tendinosis. No tendon tears. No muscle atrophy or fatty infiltration. BICEPS: Normal. CORACOACROMIAL ARCH: The undersurface of the acromion is curved with no subacromial spur. There is moderate acromioclavicular osteoarthritis with distal clavicular osteolysis and marked subchondral marrow edema of both the distal clavicle and acromion. Mild adjacent subacromial subdeltoid bursitis. LABRUM/CAPSULE: The glenoid labrum is diminutive diffusely, most consistent with a combination of labral degeneration and normal variation. This is most pronounced inferiorly. No discrete tears. Joint capsule is unremarkable. GLENOHUMERAL JOINT/MARROW: Small marginal osteophytes at the and humeral joint. Mild marrow edema signal in the glenoid osteophytes posteriorly and inferiorly. No fracture or malalignment. No joint effusion. A 5 x 5 x 2 mm low signal intensity chondral loose body is present in the axillary pouch. Assessment & Plan Assessment & Plan (1) Osteoarthritis of right shoulder: Code(s): M19.011 - Primary osteoarthritis, right shoulder Category: Medical Qualifiers: Osteoarthritis type: primary Qualified Code(s): M19.011 - Primary osteoarthritis, right shoulder Plan: #Primary OA right shoulder Patient with osteoarthritis of the right shoulder as evidenced by shoulder MRI 06/19/2023 Currently with an acute exacerbation of her AC joint Status post injection today Plan - Physical therapy right shoulder - s/p Steroid injection - RTC 6-8 months (2) Trochanteric bursitis, right hip: Code(s): M70.61 - Trochanteric bursitis, right hip Category: Medical Plan: #Right greater trochanteric bursitis Right greater trochanteric bursitis as evidenced by tenderness to palpation of the right greater trochanter. Status post steroid injection today Plan I spent 30 minutes reviewing the record and labs, taking a history, examining the patient, discussing the treatment plan and documenting in the medical record Orders: Orders AMB Joint Injection/Aspiration Today M19.011 - Primary osteoarthritis, right shoulder AMB Joint Injection/Aspiration Today M70.61 - Trochanteric bursitis, right hip PT Evaluation and Treatment Today M19.011 - Primary osteoarthritis, right shoulder Medications: New Kenalog (triamcinolone acetonide) 40 mg intra-articular ONCE 1 mL 0RF NS M19.011 - Primary osteoarthritis, right shoulder lidocaine (PF) 10 mg intra-articular ONCE 2 mL 0RF M19.011 - Primary osteoarthritis, right shoulder Coding Level of Care Code Est Pt Level 4 (44816) Diagnoses Primary osteoarthritis of right shoulder M19.011 Osteoarthritis type: primary Trochanteric bursitis, right hip M70.61 CPT Codes Coding - Joint 5: 34478 - Acromioclavicular ([id number]) Coding - Joint 7: 84217 - Glenohumeral/Tronchanteric Bursa/Intraarticular ([id number])
[2024-09-12 08:39] VITALS: BP 124/80; PULSE 71; O2SAT 97; BMI 31.0
== END 2024-09-12 09:15 | disposition home or self-care (01) ==
PROVIDERS: PCP Internal Medicine; Visit Provider Student in an Organized Health Care Education/Training Program
DX: M19.011 Primary osteoarthritis, right shoulder (principal); M70.61 Trochanteric bursitis, right hip
CPT/HCPCS: 20605; 20610; 99214

== ENCOUNTER → 2024-09-12 07:51 | Outpatient (BNVA) | payer OTHER, SELFPAY | PROVIDERS: PCP Internal Medicine; Visit Provider Student in an Organized Health Care Education/Training Program | DX: M19.011 Primary osteoarthritis, right shoulder (principal); M70.61 Trochanteric bursitis, right hip | CPT/HCPCS: 20605; 20610; 99212; J2003; J3300 ==

== ENCOUNTER 2024-11-08 08:55 | Outpatient (AMB) | payer OTHER, SELFPAY ==
--- OUTSIDE RECORDS SUMMARY | 2024-11-08 09:33 | XMS_ITS | Clinical Summary ---
Author Organization [facility] ity Address [address] [place] [address] Care Team Providers Care Commercial Service Technician Name Role Phone Unavailable Primary Care Provider Unavailabl e Social History Tobacco Use Types Packs/Day Years Used Date Smoking Tobacco: Never Assessed Comments Unknown Sex and Gender Information Value Date Recorded Sex Assigned at Not on file Legal Sex Female 8:40 PM EST Gender Identity Not on file Sexual Orientation Not on file Plan of Treatment Health Maintenance Due Date Last Done Comments Breast Cancer Screening 1974 DTaP,Tdap,and Td Vaccines (1 - Tdap) 1993 Hepatitis B Vaccines (1 of 3 - 19+ 3-dose series) 1993 Cervical Cancer Screening: P ap Smear 1995 Colorectal Cancer Screening: Colonoscopy 09/24/2023 Depression Screening 09/24/2023 HIV Screening 09/24/2023 Hepatitis C Screening 09/24/2023 Social Influencers of Health Screening 09/24/2023 COVID-19 Vaccine (1 - 2023-2 5 season) 2024 Influenza Vaccine (#1) 2024 Pneumococcal Vaccine: 50+ Ye ars (1 of 1 - PCV) 2024 Zoster Vaccines (1 of 2) 2024 HIB Vaccines Aged Out No longer eligi ble based on patient's age to complete this topic HPV Vaccines Aged Out No longer eligi ble based on patient's age to complete this topic Hepatitis A Vaccines Aged Out No long er eligible based on patient's age to complete this topic IPV Vaccines Aged Out No longer eligi ble based on patient's age to complete this topic MMR Vaccines Aged Out No longer eligi ble based on patient's age to complete this topic Meningococcal ACWY Vaccine Aged Out N o longer eligible based on patient's age to complete this topic Meningococcal B Vacine Aged Out No lo nger eligible based on patient's age to complete this topic Pneumococcal Vaccine: Pediat rics (0 to 5 Years) and At-Risk Patients (6 to 64 Years) Aged Out No longer eligible b ased on patient's age to complete this topic RSV Immunization Patients Un héctor 20 months Aged Out No longer eligible b ased on patient's age to complete this topic Varicella Vaccines Aged Out No longer eligible based on patient's age to complete this topic
--- OUTSIDE RECORDS SUMMARY | 2024-11-08 09:33 | XMS_ITS | Clinical Summary ---
Author Organization [facility] Address [address] [place] [address] Care Team Providers Care Earth Moving Technician Name Role Phone Unavailable Primary Care Provider Unavailabl e Social History Tobacco Use Types Packs/Day Years Used Date Smoking Tobacco: Never Assessed Comments Unknown Sex and Gender Information Value Date Recorded Sex Assigned at Female 06/29/2022 10:34 AM EDT Legal Sex Female 10:34 AM EDT Gender Identity Choose not to disclose 10:34 AM EDT Sexual Orientation Choose not to disclose 2021 10:34 AM EDT Plan of Treatment Health Maintenance Due Date Last Done Comments CT Colonography 1974 Colonoscopy 1974 Colorectal Cancer Screening 1974 Depression Screening 1974 FIT DNA/Cologuard 1974 FIT 1974 FOBT 1974 Sigmoidoscopy 1974 Alcohol/Substance Use Screening 1986 Tobacco Screening 1986 Family Planning (PISQ) 1989 DTaP/Tdap/Td Vaccines (1 - Tdap) 1993 Hepatitis B Vaccines (1 of 3 - 19+ 3-dose series) 1993 Pap Smear 1995 Cervical Cancer Screening 2004 HPV/Cotest 2004 Mammogram 2014 COVID-19 Vaccine ( - 2023-2 5 season) 2024 Influenza Vaccine (#1) 2024 Pneumococcal Vaccine: 50+ Ye ars (1 of 1 - PCV) 2024 Zoster Vaccines (1 of 2) 2024 RSV Patients and Pa tients Aged 60 years or older (1 - 1-dose 75+ series) 2049 HIB Vaccines Aged Out No longer eligi [...] patient's age to complete this topic Meningococcal Vaccine Aged Out No caleb julia eligible based on patient's age to complete this topic Pneumococcal Vaccine: Pediat rics (0 to 5 Years) and At-Risk Patients (6 to 49) Years) Aged Out No longer eligible b ased on patient's age to complete this topic RSV under 20 months Aged Out No longe r eligible based on patient's age to complete this topic Rotavirus Vaccines Aged Out No longer eligible based on patient's age to complete this topic
--- OUTSIDE RECORDS SUMMARY | 2024-11-08 09:33 | XMS_ITS | Encounter Summary ---
Author Organization [facility] Address [address] [place] [address] Care Team Providers Care Test Borer Helper Name Role Phone Unavailable Primary Care Provider Unavailabl e Encounter Details Date Type Department Care Team (Latest Contact Info) Description 12/13/2018 Abstract [facility] CONVERSIONS Dental, Provider, DDS Social History Tobacco Use Types Packs/Day Years Used Date Smoking Tobacco: Never Assessed Comments Unknown Sex and Gender Information Value Date Recorded Sex Assigned at Female 06/29/2022 10:34 AM EDT Legal Sex Female 10:34 AM EDT Gender Identity Choose not to disclose 10:34 AM EDT Sexual Orientation Choose not to disclose 2021 10:34 AM EDT documented as of this encounter Plan of Treatment Not on file documented as of this encounter Visit Diagnoses Not on filedocumented in this encounter
--- OUTSIDE RECORDS SUMMARY | 2024-11-08 09:33 | XMS_ITS | Encounter Summary ---
Author Organization [employer] [facility] Address [address] [place] [address] Care Team Providers Care Song And Dance Performer Name Role Phone Unavailable Primary Care Provider Unavailabl e Encounter Details Date Type Department Care Team (Latest Contact Info) Description 11/05/[address] [facility] CONVERSIONS Dental, Provider, DDS Social [...]
--- NOTE | 2024-11-08 10:05 | MHC.OFFVIS ---
Vital Signs 11/08/24 10:11 Height 5 ft 7 in Weight 196 lb 10.437 oz BMI 30.8 BP 140/90 H Blood Pressure Location Rt brachial Position Sitting Pulse 70 Pulse Source Pulse Oximeter Pulse Oximetry (%) 98 Oxygen Delivery Method Room Air Intake Visit Reasons: pain and tingling in my right leg Intake Note: Patient presents for pain and tingling in right leg. Head Inspector And Center Marker Required: Yes Head Inspector And Center Marker Language: Audit Officer Services: Head Inspector And Center Marker Present Head Inspector And Center Marker Name: [email or web address] [id number] Information Interpreted: non-clinical & clinical Allergies tramadol [From ULTRAM] Allergy (Severe, Verified 11/08/24 10:09) ANAPHYLAXIS Medication List - Last Reconciled 11/08/24 by Haven Amezquita MD cyclobenzaprine 10 mg PO TID PRN cyclobenzaprine 5 mg PO Q8H PRN diclofenac potassium 50 mg PO BID PRN diclofenac sodium 1% (Arthritis Pain (diclofenac)) 2 grams topical QID PRN lidocaine 5% (Lidoderm) 1 patch topical DAILY HPI Comments Details: Patient is a 48-year-old female with depression and a diagnosis of fibromyalgia here today for follow-up Interval History: Patient last seen 09/12/24. At that time she was complaining of right shoulder and right leg pain. Reported that she can not sleep because of the pain and has been using splints and topical diclofenac which was helpful. Today she is here for an urgent visit: About 2 weeks she noted the right leg felt cold and associated with alot of pain This prevented her from walking No bowel or bladder incontinence No saddle anesthesia Rheumatologic History: Diagnosed with fibromyalgia and OA involving the AC joint and L spine Current Rheumatology Medication(s): Amitriptyline 100 mg every night Cyclobenzaprine 10 mg 3 times a day p.r.n. Diclofenac 1% topical PFSH Medical History Trochanteric bursitis, right hip Lumbar degenerative disc disease Carpal tunnel syndrome of right wrist Rotator cuff injury Low back pain Lower extremity pain, bilateral Tinea corporis Obesity (BMI 30-39.9) Depression Anxiety Posttraumatic stress disorder Insomnia Fibromyalgia Vitamin D deficiency Pure hypercholesterolemia Surgical History History of facial surgery H/O unilateral salpingectomy History of cholecystectomy History of section Family History Father Alcohol abuse Mother Asthma Chronic mental illness Mental health disorder Social History Housing: Apartment Alcohol intake: never Patient Tobacco Use Status: Never used Tobacco e-Cigarette/Vaping Use: Never Used Second Hand Smoke Exposure: No service: No Current occupational status: retired Cognitive needs: No Hearing needs: No Vision needs: Yes (Glasses) Female Reproductive History Menstrual Age of Menarche: 11 Review of Systems Const Details: Review of Systems Constitutional: Denies fever, chills, weight loss ENT: Denies vision changes, eye pain or eye redness, dental caries, dry mouth GI: Denies nausea, vomiting, diarrhea, abdominal pain, change in BM Pulm: Denies SOB, JOSEPH, hemoptysis, wheezing Cards: Denies chest pain, palpitations Skin: Denies Raynaud's, rash, nail changes, photosensitivity, MASS COMMUNICATIONS INSTRUCTOR: Denies headaches, weakness, paresthesias, recurrent falls MSK: as per HPI All other systems reviewed and are unremarkable except noted above Physical Exam Vital Signs: Last Vital Signs Pulse 70 11/08/24 10:11 BP 140/90 H 11/08/24 10:11 Pulse Ox 98 11/08/24 10:11 Oxygen Delivery Method Room Air 11/08/24 10:11 BMI result Body Mass Index 30.8 Vital signs reviewed Physical Examination CONSTITUITIONAL Patient alert and cooperative. Well appearing and in no apparent painful distress HEENT Conjunctiva and sclera clear. ?Pupils equal round and reactive to light. ?No lymphadenopathy. ? CHEST/RESPIRATORY SYSTEM Normal respiratory effort and able to speak in complete sentences. ?Clear to auscultation bilaterally. ?No crackles, rales, rhonchi, wheezes heard. CARDIAC SYSTEM Regular rate and rhythm. ?S1 and S2 heard no murmurs. ?Radial pulses intact bilaterally MSK Right lower extremity is cold compared to the left lower extremity There is good capillary refill and the DP pulses and PT pulses are intact Sensation is also intact to light touch on the left but slightly decreased on the right SKIN Skin intact without rashes. Results Reviewed Results Reviewed: MRI L spine FINDINGS: There is spinal scoliosis with a leftward convex curvature of the lumbar spine. Alignment is grossly maintained in the sagittal dimension. Vertebral heights are preserved. No acute bone marrow signal changes. There is slight loss of intervertebral height and T2 signal intensity at multiple levels within the lower lumbar spine related to disc degeneration. The tip of the conus medullaris is located at L1. No mass effect on the conus. Visualized distal cord signal intensity is normal. At L1-L2 the annular contour is normal. No canal or neuroforaminal compromise. At L2-L3 there is a slightly bulging disc. No canal stenosis. No mass effect on the traversing or foraminal nerve roots. At L3-L4 there is a slightly bulging disc. Bilateral facet degenerative change. No canal stenosis. No mass effect on the traversing or foraminal nerve roots. At L4-L5 there is a shallow right central protrusion superimposed upon an asymmetrically bulging disc to the right. Bilateral facet degenerative change. Subarticular zone narrowing causes compression of both traversing L5 nerve roots, greater on the right. No foraminal nerve root compression. At L5-S1 there is a right central extrusion with 1.2 cm superior subligamentous extension of extruded disc material causing asymmetric compression of the right traversing S1 nerve roots. No canal stenosis. No foraminal nerve root compression. Limited visualization of the retroperitoneal anatomy reveals scarring at the upper pole of the left kidney. Psoas and paraspinal muscle groups are symmetric. IMPRESSION: There is multilevel degenerative spondylosis of the lumbar spine. A right central extrusion at L5-S1 causes asymmetric compression of the right traversing S1 nerve roots. There is also a shallow right central protrusion at L4-L5 causing compression of both traversing L5 nerve roots, greater on the right. No canal stenosis. Assessment & Plan Assessment & Plan (1) Radiculopathy, lumbosacral region: Code(s): M54.17 - Radiculopathy, lumbosacral region Category: Medical Plan: #Right lower extremity cold Patient is a 49-year-old female who presents today for urgent visit for sudden onset of right lower extremity feeling cold associated with pain. On examination the right lower extremity is cooler to touch than the left lower extremity however there is good capillary refill, and intact distal pulses (dorsalis pedis and posterior tibial pulses). Is mild decreased sensation to light touch on the affected side (right side). My concern is she may have had worsening spondylolisthesis. There is no saddle anesthesia or bowel or bladder incontinence to be concerned about cauda equina syndrome. I think she needs an urgent L-spine MRI and to follow up with Neurosurgery. Plan - Urgent L spine MRI - Neuro Sx follow up Plan I spent 25 minutes reviewing the record and labs, taking a history, examining the patient, discussing the treatment plan, ordering diagnostic work up and documenting in the medical record Orders: Orders MR lumbar spine wo con Today M43.17 - Spondylolisthesis, lumbosacral region, M54.17 - Radiculopathy, lumbosacral region Coding Level of Care Code Est Pt Level 3 (41075) Complex EM visit Add On G2211 Diagnoses Radiculopathy, lumbosacral region M54.17
[2024-11-08 10:11] VITALS: BP 140/90; PULSE 70; O2SAT 98; BMI 30.8
== END 2024-11-08 11:17 | disposition home or self-care (01) ==
LOC: HO.RHE 08:56
PROVIDERS: PCP Internal Medicine; Visit Provider Student in an Organized Health Care Education/Training Program
DX: M54.17 Radiculopathy, lumbosacral region (principal)
CPT/HCPCS: 99213; G2211

== ENCOUNTER → 2024-11-08 08:55 | Outpatient (BNVA) | payer OTHER, SELFPAY | PROVIDERS: PCP Internal Medicine; Visit Provider Student in an Organized Health Care Education/Training Program | DX: M54.17 Radiculopathy, lumbosacral region (principal) | CPT/HCPCS: 99212 ==

== ENCOUNTER 2024-11-15 09:00 | Outpatient (AMB) | payer OTHER, SELFPAY ==
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
[2024-11-15 09:08] VITALS: BP 136/82; PULSE 72; RESP 16; O2SAT 95; BMI 30.5
--- OUTSIDE RECORDS SUMMARY | 2024-11-15 09:50 | XMS_ITS | Encounter Summary ---
Author Organization [facility] Address [address] [place] [address] Care Team Providers Care Lead Pressman Name Role Phone Unavailable Primary Care Provider Unavailabl e Encounter Details Date Type Department Care Team (Latest Contact Info) Description 12/13/2018 Abstract [facility] CONVERSIONS Dental, Provider, DDS Social History Tobacco [...]
--- OUTSIDE RECORDS SUMMARY | 2024-11-15 09:50 | XMS_ITS | Clinical Summary ---
Author Organization [facility] ity Address [address] [place] [address] Care Team Providers Care Filter Machine Operator Name Role Phone Unavailable Primary Care Provider [...]
--- OUTSIDE RECORDS SUMMARY | 2024-11-15 09:50 | XMS_ITS | Encounter Summary ---
Author Organization [facility] Address [address] [place] [address] Care Team Providers Care Sales Associate Key Holder Name Role Phone Unavailable Primary Care Provider Unavailabl e Encounter Details Date Type Department Care Team (Latest Contact Info) Description 11/05/2021 Abstract [facility] CONVERSIONS Dental, Provider, DDS Social [...]
--- OUTSIDE RECORDS SUMMARY | 2024-11-15 09:50 | XMS_ITS | Clinical Summary ---
Author Organization [facility] Address [address] [place] [address] Care Team Providers Care Medical Affairs Director Name Role Phone Unavailable Primary Care Provider [...]
== END 2024-11-15 09:39 | disposition home or self-care (01) ==
LOC: HO.PMC 09:00
PROVIDERS: PCP Internal Medicine; Visit Provider Registered Nurse Emergency
DX: M54.17 Radiculopathy, lumbosacral region (principal); R29.898 Other symptoms and signs involving the musculoskeletal system; N39.42 Incontinence without sensory awareness; R20.0 Anesthesia of skin; R20.2 Paresthesia of skin
CPT/HCPCS: 99213; G2211

== ENCOUNTER → 2024-11-15 09:00 | Outpatient (BNVA) | payer OTHER, SELFPAY | PROVIDERS: PCP Internal Medicine; Visit Provider Registered Nurse Emergency | DX: M54.17 Radiculopathy, lumbosacral region (principal); R29.898 Other symptoms and signs involving the musculoskeletal system; N39.42 Incontinence without sensory awareness; R20.0 Anesthesia of skin; R20.2 Paresthesia of skin | CPT/HCPCS: 99212 ==

== ENCOUNTER 2024-11-23 09:21 | Outpatient (REF) | payer OTHER, SELFPAY ==
--- NOTE | ~2024-11-23 | MR_ITS ---
CLINICAL HISTORY: M54.17 - Radiculopathy, lumbosacral region Examination: MRI lumbar spine without intravenous contrast Comparison: MR/SR - MR LUMBAR SPINE WO CON - 10/07/23 08:48 EST CR/SR - XR LUMBAR SPINE 2-3V - 06/23/23 18:51 EDT Findings: Plain radiograph correlation: 06/23/2023 demonstrated 5 developed [id number] lumbar vertebra, discs numbered accordingly. The lumbar spine is anatomic in alignment and demonstrates a normal anatomic lordotic curvature. The vertebral body heights are well maintained. No acute or chronic compression deformities are present. The marrow signal is unremarkable. The anterior posterior longitudinal ligament and interspinous ligament are preserved. Paravertebral soft tissues within normal limits. Probable renal cortical cysts on the left Sacroiliac joints appear normal. The conus demonstrates normal caliber and signal intensity and terminates at L1 level. Individual intervertebral disc levels as follows: L1-L2: Normal disc height and signal with no discogenic changes. No disc bulge protrusion or extrusion. No central or foraminal stenosis or thecal sac compression. Normal posterior elements. L2-L3: Normal disc height. Posterior annular tear. No central or foraminal stenosis or thecal sac compression. Degenerative facet arthropathy. L3-L4: Normal disc height and signal. Posterior annular tear. No disc bulge protrusion or extrusion. No central or foraminal stenosis or thecal sac compression. Mild degenerative facet hypertrophy. L4-L5: Mild loss of disc space height disc desiccation. Right paracentral disc extrusion causing ventral compression thecal sac. There is impingement L4 exiting nerve root on the right. There is likely a sequestered fragment in the anterior epidural space L5 vertebral body on the right. This measures 12 mm in longest recorded dimension. This is impinging on L5 descending nerve root on the right. L5-S1: Moderate loss of disc space height. Posterior annular tear. Concentric disc bulge with mild ventral compression of the thecal sac. This abuts S1 descending nerve roots bilaterally. Degenerative facet arthropathy exiting nerve roots appear spared. T12-L1: Normal disc height and signal with no discogenic changes. No disc bulge protrusion or extrusion. No central or foraminal stenosis or thecal sac compression. Normal posterior elements. Impression: 1. No compression fractures or spondylolisthesis. 2. Extruded disc L4-5 level. Probable sequestered disc right anterior epidural space L5 origin from L4-5 or L5-S1 disc cannot be determined. Follow-up with a contrast-enhanced MRI to exclude any nerve sheath tumor. 3. Impingement at L4-5 and L5-S1 level as described This document has been electronically signed by: Dominic Garcia MD on 11/23/2024 11:08:24
--- OUTSIDE RECORDS SUMMARY | 2024-11-23 11:19 | XMS_ITS | Clinical Summary ---
Author Organization [facility] it[facility] Address [address] [place] [address] Care Team Providers Care Offset Lithographic Press Setter Name Role Phone Unavailable Primary Care Provider [...]
--- OUTSIDE RECORDS SUMMARY | 2024-11-23 11:19 | XMS_ITS | Encounter Summary ---
Author Organization [facility] Address [address] [place] [address] Care Team Providers Care Liability Analyst Name Role Phone Unavailable Primary Care Provider Unavailabl e Encounter Details Date Type Department Care Team (Latest Contact Info) Description 11/05/2021 Abstract [facility] CONVERSIONS Dental, Provider, DDS Social History Tobacco [...]
--- OUTSIDE RECORDS SUMMARY | 2024-11-23 11:19 | XMS_ITS | Encounter Summary ---
Author Organization [facility] Address [address] [place] [address] Care Team Providers Care International Accounting Manager Name Role Phone Unavailable Primary Care Provider Unavailabl e Encounter Details Date Type Department Care Team (Latest Contact Info) Description 12/13/2018 Abstract [facility] CONVERSIONS Dental, Provider, DDS Social History [...]
--- OUTSIDE RECORDS SUMMARY | 2024-11-23 11:19 | XMS_ITS | Clinical Summary ---
Author Organization [facility] Address [address] [place] [address] Care Team Providers Care Household Manager Name Role Phone Unavailable Primary Care [...]
== END 2024-11-23 09:22 | disposition home or self-care (01) ==
LOC: HO.MRI 09:21
PROVIDERS: PCP Internal Medicine; Visit Provider Student in an Organized Health Care Education/Training Program
DX: M54.17 Radiculopathy, lumbosacral region (principal); M43.17 Spondylolisthesis, lumbosacral region
CPT/HCPCS: 72148

== ENCOUNTER → 2024-11-23 09:29 | Outpatient (BNV) | payer OTHER, SELFPAY | PROVIDERS: PCP Internal Medicine; Visit Provider Radiology Diagnostic Radiology | DX: M54.17 Radiculopathy, lumbosacral region (principal) | CPT/HCPCS: 72148 ==

== ENCOUNTER 2024-11-28 06:30 | Outpatient (REF) | payer OTHER, SELFPAY ==
--- NOTE | ~2024-11-28 | FL_ITS ---
EXAMINATION: FL GUIDANCE ONLY HISTORY: M54.17 - Radiculopathy, lumbosacral region COMPARISON: None available. TECHNIQUE: Fluoroscopy time: 0.2 minutes. Cumulative Dose: 5.54 mGy. DAP: 0.0760 mGym2 Images: 1. FINDINGS: A single fluoroscopic spot film of the lumbar spine in the AP projection demonstrates a needle and contrast in the region of the right L5-S1 facet joint. FL/FL guidance in treatment room IMPRESSION: Fluoroscopy during procedure. Please see procedure report for additional information. Electronically signed by: Vlad Demarco MD 11/29/2024 07:52 AM EDT
--- OUTSIDE RECORDS SUMMARY | 2024-11-28 06:33 | XMS_ITS | Clinical Summary ---
Author Organization [facility] Address [address] [place] [address] Care Team Providers Care Fruit And Vegetable Parer Name Role Phone Unavailable Primary Care Provider [...]
--- OUTSIDE RECORDS SUMMARY | 2024-11-28 06:33 | XMS_ITS | Encounter Summary ---
Author Organization [facility] Address [address] [place] [address] Care Team Providers Care Bail Bondsman Name Role Phone Unavailable Primary Care Provider Unavailabl e Encounter Details Date Type Department Care Team (Latest Contact Info) Description 11/05/2021 Abstract [facility] CONVERSIONS Dental, Provider, DDS Social History [...]
--- OUTSIDE RECORDS SUMMARY | 2024-11-28 06:33 | XMS_ITS | Encounter Summary ---
Author Organization [facility] Address [address] [place] [address] Care Team Providers Care Rn Lpn Cna Name Role Phone Unavailable Primary Care Provider Unavailabl e Encounter Details Date Type Department Care Team (Latest Contact Info) Description 12/13/2018 Abstract [facility] CONVERSIONS Dental, Provider, DDS Social [...]
== END 2024-11-28 06:31 | disposition home or self-care (01) ==
LOC: CF 06:30
PROVIDERS: Visit Provider Anesthesiology
DX: M54.17 Radiculopathy, lumbosacral region (principal); M54.16 Radiculopathy, lumbar region
CPT/HCPCS: 64483; J2003; J3301; Q9967

== ENCOUNTER 2024-11-28 13:35 | Outpatient (AMB) | payer OTHER, SELFPAY ==
[2024-11-28 13:41] VITALS: BP 117/89; PULSE 89; RESP 17; O2SAT 98
--- NOTE | 2024-11-28 13:41 | A.OFFVIS_ITS ---
Vital Signs 11/28/24 13:41 11/28/24 14:30 BP 117/89 131/86 Blood Pressure Location Lt brachial Rt brachial Position Sitting Supine Respiration 17 16 Pulse 89 65 Pulse Source Pulse Oximeter Pulse Oximeter Pulse Oximetry (%) 98 100 Oxygen Delivery Method Room Air Room Air Intake Visit Reasons: RIGHT L5, S1 TFESI/OK'D BY DR COOL Insurance Claims Representative Required: No Allergies tramadol [From ULTRAM] Allergy (Severe, Verified 11/28/24 13:41) ANAPHYLAXIS Medication List - Last Reconciled 11/28/24 by Keerthi Jo LPN cyclobenzaprine 5 mg PO Q8H PRN diclofenac potassium 50 mg PO BID PRN diclofenac sodium 1% (Arthritis Pain (diclofenac)) 2 grams topical QID PRN lidocaine 5% (Lidoderm) 1 patch topical DAILY PFSH Medical History Trochanteric bursitis, right hip Lumbar degenerative disc disease Carpal tunnel syndrome of right wrist Rotator cuff injury Low back pain Lower extremity pain, bilateral Tinea corporis Obesity (BMI 30-39.9) Depression Anxiety Posttraumatic stress disorder Insomnia Fibromyalgia Vitamin D deficiency Pure hypercholesterolemia Surgical History History of facial surgery H/O unilateral salpingectomy History of cholecystectomy History of section Family History Father Alcohol abuse Mother Asthma Chronic mental illness Mental health disorder Social History Housing: Apartment Alcohol intake: never Patient Tobacco Use Status: Never used Tobacco e-Cigarette/Vaping Use: Never Used Second Hand Smoke Exposure: No service: No Current occupational status: retired Cognitive needs: No Hearing needs: No Vision needs: Yes (Glasses) Female Reproductive History Menstrual Age of Menarche: 11 Physical Exam Vital Signs: Last Vital Signs Pulse 65 11/28/24 14:30 Resp 16 11/28/24 14:30 BP 131/86 11/28/24 14:30 Pulse Ox 100 11/28/24 14:30 Oxygen Delivery Method Room Air 11/28/24 14:30 Assessment & Plan Assessment & Plan (1) Radiculopathy, lumbosacral region: Code(s): M54.17 - Radiculopathy, lumbosacral region Category: Medical Plan Right transforaminal epidural steroid injection L5-S1. Informed consent was explained to the patient. Risks and benefits were carefully explained using the caregivers non medical from the [facility] [place] interpreting pool. The patient was taken into the operating room on positioned prone on operating table. Time-out was performed delineating name and date of of the patient side and site of the procedure. The lower back of the patient was prepped with ChloraPrep and draped with sterile self adhesive utility towels. After that C-arm was brought to the operating field and sq picture of the L5 vertebra was delineated on the screen. after that the C-arm was tilted ipsilateral to the right 35 degrees. On the oblique image Point of interest was delineated as the lateral border of the superior articular process of S1. Injection of the local anesthetic lidocaine 1% in the projection of the point of interest to the skin was performed forming skin wheal. After that 22 gauge 5 in needle was inserted through the skin wheal and advanced to were the point of interest. When tip of the needle gently cont acted the bone the needle was deviated slightly laterally advanced 2 mm forward and deviated slightly medially. After that the sq anterior posterior image was obtained demonstrating the position of the needle at the silhouette of the spinal column but not further in then midline of the pedicle of L5. Injection of the contrast performed delineating epidural and perineural spread of the contrast. No intrathecal and no intravascular spread of the contrast was noted. After that injection of the treatment solution containing lidocaine 1% 2 cc mixed with Kenalog 40 mg was performed into the Needle. Upon completion of the injection the needle was withdrawn and sterile Band-Aid was applied. Initially patient stood herself up from the operating table and walk to the recovery room however in the recovery room she started to feel nauseous and she had transient hypotension. She was positioned in bed and made comfortable. the blood pressure returned to the normal normal numbers and after that patient was allowed to go home. She was given a note to be freed from work for today and tomorrow and 11/29/2024. Orders: Orders FL guidance in treatment room 11/28/24 M54.16 - Radiculopathy, lumbar region, M54.17 - Radiculopathy, lumbosacral region Coding Level of Care Code Procedure Only Diagnoses Radiculopathy, lumbosacral region M54.17
[2024-11-28 14:30] VITALS: BP 131/86; PULSE 65; RESP 16; O2SAT 100
--- OUTSIDE RECORDS SUMMARY | 2024-11-28 16:05 | XMS_ITS | Encounter Summary ---
Author Organization [facility] Address [address] [place] [address] Care Team Providers Care Boiler Control Technician Name Role Phone Unavailable Primary Care Provider Unavailabl e Encounter Details Date Type Department Care Team (Latest Contact Info) Description 12/13/2018 Abstract [facility] CONVERSIONS Dental, Provider, DDS Social History [...]
--- OUTSIDE RECORDS SUMMARY | 2024-11-28 16:05 | XMS_ITS | Clinical Summary ---
Author Organization [employer] [facility] Address [address] [place] [address] Care Team Providers Care Doctor Of Chiropractic Name Role Phone Unavailable Primary Care Provider [...]
--- OUTSIDE RECORDS SUMMARY | 2024-11-28 16:05 | XMS_ITS | Clinical Summary ---
Author Organization [facility] ity Address [address] [place] [address] Care Team Providers Care Environmental Protection Forester Name Role Phone Unavailable Primary Care Provider [...] Influencers of Health Screening 09/24/2023 COVID-19 Vaccine ( - 2023-2 5 season) [...]
--- OUTSIDE RECORDS SUMMARY | 2024-11-28 16:05 | XMS_ITS | Encounter Summary ---
Author Organization [facility] Address [address] [place] [address] Care Team Providers Care Chief General Pediatric Clinic Name Role Phone Unavailable Primary Care Provider Unavailabl e Encounter Details Date Type Department Care Team (Latest Contact Info) Description 11/05/2021 Abstract [facility] CONVERSIONS Dental, Provider, DDS Social History [...]
== END 2024-11-28 14:47 | disposition home or self-care (01) ==
LOC: HO.PMCPRC 13:35
PROVIDERS: PCP Internal Medicine; Visit Provider Anesthesiology
DX: M54.17 Radiculopathy, lumbosacral region (principal)
CPT/HCPCS: 64483

== ENCOUNTER 2024-12-04 08:48 | Outpatient (AMB) | payer OTHER, SELFPAY ==
--- NOTE | 2024-12-04 08:54 | A.SPINEOV_ITS ---
Intake Visit Reasons: Follow up after PT Intake Note: Ms. Myrick is here today to F/u after MRI and Injections. Boiler Tube Reamer Required: Yes Boiler Tube Reamer Services: Boiler Tube Reamer Present Boiler Tube Reamer Name: Carlyn Rice Allergies tramadol [From ULTRAM] Allergy (Severe, Verified 12/04/24 08:57) ANAPHYLAXIS Assessment & Plan Assessment & Plan (1) Radiculopathy, lumbosacral region: Code(s): M54.17 - Radiculopathy, lumbosacral region Category: Medical Plan HPI: Thais is a pleasant 49 year old female who comes in today for subsequent follow-up after being previously evaluated for disc herniation at L5-S1 causing compression of the right-sided nerve at this level. To recap she was having shooting pain down the posterior aspect of her right leg terminating near the bottom her foot. She was sent for a course of physical therapy, and had previously reported good relief from injections she had had. She has been followed by our colleagues in pain management who most recently completed a right-sided L5-S1 transforaminal epidural steroid injection 6 days ago. Today, she continues to report some residual pains in the posterior right leg, but does state that her symptoms have very much so improved since her right-si ded transforaminal epidural steroid injection with Dr. Alcantar. She feels her pain is now tolerable and allowing her to function throughout the day much better. She does continue to disclosed weakness in her right foot, which she states she has had for the last 2 years since pain onset. Allergies: No changes since last visit Medications: No changes since last visit. Imaging review: Most recent lumbar MRI completed 11/23/2024 shows a worsening disc bulge at L4-5 causing severe right-sided foraminal stenosis at this level. The disc herniation at L5-S1 actually seems to have improved quite a bit compared to previous imaging. Exam: The patient has 4/5 strength with right-sided plantar flexion. Her right-sided iliopsoas and knee extension remains 4/5. The rest of her lower extremity strength is 5/5. She has some hypoesthesia over the anterior surface of her right foot. The rest of her sensation is intact. She walks with a continued slightly antalgic gait favoring the left side. (+) right-sided straight leg raise. Plan: Thais is a pleasant 49-year-old female who comes in today for a follow-up after having completed physical therapy and having an injection completed by pain management. On imaging it appears that her disc herniation at L5-S1 has actually improved since her previous MRI (extruded fragment remains), but the disc herniation at L4-5 has actually worsened, causing severe right-sided foraminal stenosis at this level. She does not appear to have a symptomatic radiculopathy from this disc herniation, as the distribution of her pain continues down the posterior aspect of her right leg terminating at the bottom of her foot. If she was symptomatic from the right-sided L4 nerve I believe she would have some anterior / lateral symptoms. We discussed the possibility of decompression on the right at L4-5, and L5-S1. Given that the patient feels her pain has improved, and seems to have strength deficits and hypoesthesia that she subjectively reports have been there since onset of pain 2 years ago, I do not believe there is any immediate need for surgery. It is likely that her hypoesthesia and strength deficits would remain despite decompression. Surgery would primarily be to address her pain which is well controlled at this time. She reported that if she was to pursue a surgical intervention for this problem she would want to do it over the summer if her pain comes back. She may follow up with us on an as-needed basis. Coding Level of Care Code Est Pt Level 3 (64921) Diagnoses Radiculopathy, lumbosacral region M54.17
--- OUTSIDE RECORDS SUMMARY | 2024-12-04 09:32 | XMS_ITS | Clinical Summary ---
Author Organization [employer] [facility] Address [address] [place] [address] Care Team Providers Care Reeling Machine Operator Name Role Phone Unavailable Primary [...]
--- OUTSIDE RECORDS SUMMARY | 2024-12-04 09:32 | XMS_ITS | Encounter Summary ---
Author Organization [facility] Address [address] [place] [address] Care Team Providers Care Power House Engineer Name Role Phone Unavailable Primary Care Provider Unavailabl e Encounter Details Date Type Department Care Team (Latest Contact Info) Description 12/13/2018 Abstract [facility] CONVERSIONS Dental, Provider, DDS Social [...]
--- OUTSIDE RECORDS SUMMARY | 2024-12-04 09:32 | XMS_ITS | Clinical Summary ---
Author Organization [facility] it[facility] Address [address] [place] [address] Care Team Providers Care Records Management Coordinator Name Role Phone Unavailable Primary Care Provider [...] Vaccine (1 - 2023-2 5 season) 2024 Pneumococcal Vaccine: 50+ Ye ars (1 of 1 - PCV) 2024 Zoster Vaccines (1 of 2) 2024 Influenza Vaccine (Season Ended) 2025 HIB Vaccines Aged Out No longer eligi [...]
--- OUTSIDE RECORDS SUMMARY | 2024-12-04 09:32 | XMS_ITS | Encounter Summary ---
Author Organization [employer] [facility] Address [address] [place] [address] Care Team Providers Care Manager Hair Name Role Phone Unavailable Primary Care Provider Unavailabl e Encounter Details Date Type Department Care Team (Latest Contact Info) Description 11/05/2021 Abstract [facility] CONVERSIONS Dental, Provider, DDS Social History [...]
== END 2024-12-04 09:49 | disposition home or self-care (01) ==
LOC: HO.HNS 08:49
PROVIDERS: PCP Internal Medicine; Visit Provider Physician Assistant
DX: M54.17 Radiculopathy, lumbosacral region (principal)
CPT/HCPCS: 99213

== ENCOUNTER → 2024-12-04 08:48 | Outpatient (BNVA) | payer OTHER, SELFPAY | PROVIDERS: PCP Internal Medicine; Visit Provider Physician Assistant | DX: M54.17 Radiculopathy, lumbosacral region (principal) | CPT/HCPCS: 99212 ==

== ENCOUNTER 2024-12-20 10:20 | Outpatient (AMB) | payer OTHER, SELFPAY ==
--- NOTE | 2024-12-20 10:46 | MHC.OFFVIS ---
Vital Signs 12/20/24 10:47 Height 5 ft 7 in Weight 195 lb BMI 30.5 BP 133/88 Blood Pressure Location Lt brachial Position Sitting Respiration 16 Pulse 70 Pulse Source Pulse Oximeter Pulse Oximetry (%) 95 Oxygen Delivery Method Room Air Intake Visit Reasons: RIGHT L5, S1 TFESI Drilling Engineering Manager Required: Yes Drilling Engineering Manager Services: Drilling Engineering Manager Present Drilling Engineering Manager Name: [id number] Winifred Allergies tramadol [From ULTRAM] Allergy (Severe, Verified 12/20/24 10:50) ANAPHYLAXIS Medication List - Last Reconciled 12/20/24 by Keerthi Jo LPN cyclobenzaprine 5 mg PO Q8H PRN diclofenac potassium 50 mg PO BID PRN diclofenac sodium 1% (Arthritis Pain (diclofenac)) 2 grams topical QID PRN lidocaine 5% (Lidoderm) 1 patch topical DAILY HPI Comments Details: Visit completed today with Wet Plant Operator Winifred, #[id number] The patient is a 49-year-old female presenting for follow up, 1 month s/p rt L5-S1 TFESI. Initially, her pain peaked at ten before this intervention, which was intended to introduce relief. Following the injection, the discomfort decreased but maintains during daily activities at a level of four, escalating to six or seven during nighttime. Her symptoms include cramping at the calves, particularly on the posterior section. Review of pain patterns suggests a cyclic exacerbation with noted temporary relief from injections. Current plans, as discussed with the spine center, consider surgical options should the residual pain surpass prior levels experienced. The patient currently does not require any medication refills but is advised to maintain contact through her pharmacy for future needs. - Quality: Involvement from knee to ankle; encompasses anterior and posterior regions; cramps in calves. - Severity: Initially 10/10 before injections; now 4/10 during the day, 6-7/10 at night. - Location: Right side; from knee to ankle, including toes of the foot. - Exacerbating Factors: Not specified. - Relieving Factors: Post-injection relief noted. - Impact: Daytime activities remain a 4/10 on the pain scale; nighttime pain increases to 6-7/10. - Affect: There was no discussion regarding mood impact. - Analgesia: The patient reports pain improvements after injections, with current day ratings at four and nighttime reaching six to seven. Usage of muscle relaxers mentioned; no current refills needed. - Adverse Effects: No adverse medication effects reported. - Activities of Daily Living: Pain interferes more prominently at nighttime; reduced intensity during the day. - Aberrant Drug-Related Behaviors: None reported, no early refill requests or other concerns mentioned. [facility] Medical History Trochanteric bursitis, right hip Lumbar degenerative disc disease Carpal tunnel syndrome of right wrist Rotator cuff injury Low back pain Lower extremity pain, bilateral Tinea corporis Obesity (BMI 30-39.9) Depression Anxiety Posttraumatic stress disorder Insomnia Fibromyalgia Vitamin D deficiency Pure hypercholesterolemia Surgical History History of facial surgery H/O unilateral salpingectomy History of cholecystectomy History of section Family History Father Alcohol abuse Mother Asthma Chronic mental illness Mental health disorder Social History Housing: Apartment Alcohol intake: never Patient Tobacco Use Status: Never used Tobacco e-Cigarette/Vaping Use: Never Used Second Hand Smoke Exposure: No service: No Current occupational status: retired Cognitive needs: No Hearing needs: No Vision needs: Yes (Glasses) Female Reproductive History Menstrual Age of Menarche: 11 Review of Systems Const Details: - Musculoskeletal: Reports pain in the right knee, foot, and ankle regions; cramping in the calves. - Neurological: Denies additional neurological symptoms as not specified further. Physical Exam Vital Signs: Last Vital Signs Pulse 70 12/20/24 10:47 Resp 16 12/20/24 10:47 BP 133/88 12/20/24 10:47 Pulse Ox 95 12/20/24 10:47 Oxygen Delivery Method Room Air 12/20/24 10:47 BMI result Body Mass Index 30.5 General: awake, alert, oriented. Answers questions appropriately. Fully engaged in examination. Skin: warm, dry, intact HEENT: Normocephalic. Hearing intact. Cardiac: External chest normal in appearance. Respiratory: No cough, audible wheezing or stridor. Abdomen: without gross distension. MS: No obvious swelling or deformities. Able to transition from sit to stand unassisted. Neurological: Oriented to person, place, time and situation. Thought process intact. Antalgic Gait. Psychiatric: Appropriate mood and affect. Good judgment and insight. Results Reviewed Results Reviewed: 10/07/23 EXAMINATION: MR LUMBAR SPINE WITHOUT CONTRAST CLINICAL INFORMATION: Low back pain. Right lower extremity pain, numbness, and weakness. COMPARISON: Lumbar spine radiographs 06/23/2023. TECHNIQUE: MRI of the lumbar spine was obtained using routine sequences without contrast. FINDINGS: There is spinal scoliosis with a leftward convex curvature of the lumbar spine. Alignment is grossly maintained in the sagittal dimension. Vertebral heights are preserved. No acute bone marrow signal changes. There is slight loss of intervertebral height and T2 signal intensity at multiple levels within the lower lumbar spine related to disc degeneration. The tip of the conus medullaris is located at L1. No mass effect on the conus. Visualized distal cord signal intensity is normal. At L1-L2 the annular contour is normal. No canal or neuroforaminal compromise. At L2-L3 there is a slightly bulging disc. No canal stenosis. No mass effect on the traversing or foraminal nerve roots. At L3-L4 there is a slightly bulging disc. Bilateral facet degenerative change. No canal stenosis. No mass effect on the traversing or foraminal nerve roots. At L4-L5 there is a shallow right central protrusion superimposed upon an asymmetrically bulging disc to the right. Bilateral facet degenerative change. Subarticular zone narrowing causes compression of both traversing L5 nerve roots, greater on the right. No foraminal nerve root compression. At L5-S1 there is a right central extrusion with 1.2 cm superior subligamentous extension of extruded disc material causing asymmetric compression of the right traversing S1 nerve roots. No canal stenosis. No foraminal nerve root compression. Limited visualization of the retroperitoneal anatomy reveals scarring at the upper pole of the left kidney. Psoas and paraspinal muscle groups are symmetric. IMPRESSION: There is multilevel degenerative spondylosis of the lumbar spine. A right central extrusion at L5-S1 causes asymmetric compression of the right traversing S1 nerve roots. There is also a shallow right central protrusion at L4-L5 causing compression of both traversing L5 nerve roots, greater on the right. No canal stenosis. 09/24/23 EMG IMPRESSION: 1. This is an abnormal study. 2. There is electrodiagnostic findings suggestive for right L5-S1 radiculopathy. 3. There is no electrodiagnostic evidence for peroneal neuropathy, tibial neuropathy. lumbosacral plexopathy, or peripheral neuropathy. Assessment & Plan Assessment & Plan (1) Radiculopathy, lumbosacral region: Code(s): M54.17 - Radiculopathy, lumbosacral region Category: Medical (2) Weakness of right lower extremity: Code(s): R29.898 - Other symptoms and signs involving the musculoskeletal system Category: Medical (3) Urinary incontinence without sensory awareness: Code(s): N39.42 - Incontinence without sensory awareness Category: Medical (4) Numbness and tingling of right lower extremity: Code(s): R20.0 - Anesthesia of skin; R20.2 - Paresthesia of skin Category: Medical Plan Management was focused on assessing current chronic pain management effectiveness post-injections. Surgical intervention remains under consideration if pain intensifies further and does not respond to ongoing treatments. Patient was advised to follow up with the spine center within the next two months to evaluate further options regarding surgeries. Medication refill requests should be processed electronically through the pharmacy as indicated by need. During today?s discussion, we evaluated the current management of the patient?s chronic pain post-injections. The patient noted relative improvement since her last session though remains concerned over potential symptomatic recurrence. We deliberated potential surgical interventions and agreed to re-evaluate if pain levels rise correspondingly. It was emphasized to the patient the importance of routine follow-up with the spine center to address possible lasting solutions. Additionally, we discussed that future refill needs can be electronically handled through her appointed pharmacy. Patient was informed and verbally consented to the use of an ambient scribe for clinic note documentation during this visit. Patient Instructions: - Continue current pain management measures. - Follow up with the spine center within 6-8 weeks to assess potential surgery plans if pain worsens. - Call the office to schedule next injection if pain returns/worsens. - Request medication refills through [facility] or patient portal as needed. - Monitor pain levels and seek medical advice if conditions worsen. - Notify the clinic should any new symptoms or concerns arise. Coding Level of Care Code Est Pt Level 3 (90745) Complex EM visit Add On G2211 Diagnoses Radiculopathy, lumbosacral region M54.17 Weakness of right lower extremity R29.898 Urinary incontinence without sensory awareness N39.42 Numbness and tingling of right lower extremity R20.0; R20.2
[2024-12-20 10:47] VITALS: BP 133/88; PULSE 70; RESP 16; O2SAT 95; BMI 30.5
--- OUTSIDE RECORDS SUMMARY | 2024-12-20 12:08 | XMS_ITS | Clinical Summary ---
Author Organization [facility] Address [address] [place] [address] Care Team Providers Care Blankmaker Name Role Phone Unavailable Primary Care Provider [...] age to complete this topic Meningococcal B Vaccine Aged Out No l onger eligible based on patient's age to complete [...]
--- OUTSIDE RECORDS SUMMARY | 2024-12-20 12:08 | XMS_ITS | Encounter Summary ---
Author Organization [employer] [facility] Address [address] [place] [address] Care Team Providers Care Keypunch Operator Name Role Phone Unavailable Primary Care Provider Unavailabl e Encounter Details Date Type Department Care Team (Latest Contact Info) Description 12/13/2018 Abstract [facility] CONVERSIONS Dental, Provider, DDS Social [...]
--- OUTSIDE RECORDS SUMMARY | 2024-12-20 12:08 | XMS_ITS | Encounter Summary ---
Author Organization [facility] Address [address] [place] [address] Care Team Providers Care Psychologist Counseling Name Role Phone Unavailable Primary Care Provider Unavailabl e Encounter Details Date Type Department Care Team (Latest Contact Info) Description 11/05/2021 Abstract [facility] CONVERSIONS Dental, Provider, DDS Social History [...]
--- OUTSIDE RECORDS SUMMARY | 2024-12-20 12:08 | XMS_ITS | Clinical Summary ---
Author Organization [employer] [facility] Address [address] [place] [address] Care Team Providers Care Pallet Repairer Name Role Phone Unavailable Primary Care Provider [...]
== END 2024-12-20 11:05 | disposition home or self-care (01) ==
LOC: HO.PMC 10:21
PROVIDERS: PCP Internal Medicine; Visit Provider Registered Nurse Emergency
DX: M54.17 Radiculopathy, lumbosacral region (principal); R29.898 Other symptoms and signs involving the musculoskeletal system; N39.42 Incontinence without sensory awareness; R20.0 Anesthesia of skin; R20.2 Paresthesia of skin
CPT/HCPCS: 99213; G2211

== ENCOUNTER → 2024-12-20 10:20 | Outpatient (BNVA) | payer OTHER, SELFPAY | PROVIDERS: PCP Internal Medicine; Visit Provider Registered Nurse Emergency | DX: M54.17 Radiculopathy, lumbosacral region (principal); R29.898 Other symptoms and signs involving the musculoskeletal system; N39.42 Incontinence without sensory awareness; R20.0 Anesthesia of skin; R20.2 Paresthesia of skin | CPT/HCPCS: 99212 ==

== ENCOUNTER 2025-01-05 09:01 | Outpatient (AMB) | payer OTHER, SELFPAY ==
--- OUTSIDE RECORDS SUMMARY | 2025-01-05 09:14 | XMS_ITS | Clinical Summary ---
Author Organization [facility] Address [address] [place] [address] Care Team Providers Care Adobe Cq Developer Name Role Phone Unavailable Primary Care Provider [...]
--- OUTSIDE RECORDS SUMMARY | 2025-01-05 09:14 | XMS_ITS | Encounter Summary ---
Author Organization [facility] Address [address] [place] [address] Care Team Providers Care Beater Tender Name Role Phone Unavailable Primary Care Provider Unavailabl e Encounter Details Date Type Department Care Team (Latest Contact Info) Description 11/05/2021 Abstract [facility] CONVERSIONS Dental, Provider, DDS Social History Tobacco Use Types Packs/Day Years Used Date Smoking Tobacco: Never Assessed Comments Unknown Sex and Gender Information Value Date Recorded Sex Assigned at Female 06/29/2022 10:34 AM EDT Legal Sex Female 10:34 AM EDT Gender Identity Choose not to disclose 2 10:34 AM EDT Sexual Orientation Choose not to disclose 2021 10:34 AM EDT documented as of this encounter Plan of Treatment Not on file documented as of this encounter Visit Diagnoses Not on filedocumented in this encounter
--- OUTSIDE RECORDS SUMMARY | 2025-01-05 09:14 | XMS_ITS | Encounter Summary ---
Author Organization [facility] Address [address] [place] [address] Care Team Providers Care Patient Advocate Name Role Phone Unavailable Primary Care Provider Unavailabl e Encounter Details Date Type Department Care Team (Latest Contact Info) Description 12/13/2018 Abstract [facility] CONVERSIONS Dental, Provider, DDS Social [...]
--- OUTSIDE RECORDS SUMMARY | 2025-01-05 09:14 | XMS_ITS | Clinical Summary ---
Author Organization [employer] [facility] Address [address] [place] [address] Care Team Providers Care Drive In Theater Attendant Name Role Phone Unavailable Primary Care Provider [...]
--- NOTE | 2025-01-05 09:34 | MHC.OFFVIS ---
Vital Signs 01/05/25 09:49 Height 5 ft 7 in Weight 197 lb 1.492 oz BMI 30.9 BP 132/80 Blood Pressure Location Rt brachial Position Sitting Respiration 16 Pulse 79 Pulse Source Pulse Oximeter Pulse Oximetry (%) 98 Oxygen Delivery Method Room Air Intake Visit Reasons: follow up Intake Note: Patient presents for Lumbosacral Radiculopathy follow up. Supervisor Cured Meats Required: Yes Supervisor Cured Meats Language: Clinical Product Manager Services: Supervisor Cured Meats Present Supervisor Cured Meats Name: Luis [id number] Information Interpreted: non-clinical & clinical Allergies tramadol [From ULTRAM] Allergy (Severe, Verified 01/05/25 09:46) ANAPHYLAXIS HPI Comments Details: Patient is a 48-year-old female with depression and a diagnosis of fibromyalgia here today for urgent visit for bilateral shoulder pain Interval History: Patient last seen 11/08/24 with me fro an urgent visit for a cold and painful lower extremity. An urgent lumbar spine MRI was done which showed significant lumbar disc herniation. She was referred to neuro spine surgery. 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 Diclofenac 1% topical PFSH Medical History Trochanteric bursitis, right hip Lumbar degenerative disc disease Carpal tunnel syndrome of right wrist Rotator cuff injury Low back pain Lower extremity pain, bilateral Tinea corporis Obesity (BMI 30-39.9) Depression Anxiety Posttraumatic stress disorder Insomnia Fibromyalgia Vitamin D deficiency Pure hypercholesterolemia Surgical History History of facial surgery H/O unilateral salpingectomy History of cholecystectomy History of section Family History Father Alcohol abuse Mother Asthma Chronic mental illness Mental health disorder Social History Housing: Apartment Alcohol intake: never Patient Tobacco Use Status: Never used Tobacco e-Cigarette/Vaping Use: Never Used Second Hand Smoke Exposure: No service: No Current occupational status: retired Cognitive needs: No Hearing needs: No Vision needs: Yes (Glasses) Female Reproductive History Menstrual Age of Menarche: 11 Review of Systems Const Details: Review of Systems Constitutional: Denies fever, chills, weight loss ENT: Denies vision changes, eye pain or eye redness, dental caries, dry mouth GI: Denies nausea, vomiting, diarrhea, abdominal pain, change in BM Pulm: Denies SOB, JOSEPH, hemoptysis, wheezing Cards: Denies chest pain, palpitations Skin: Denies Raynaud's, rash, nail changes, photosensitivity, EMISSIONS TESTING TECHNICIAN: Denies headaches, weakness, paresthesias, recurrent falls MSK: as per HPI All other systems reviewed and are unremarkable except noted above Physical Exam Vital Signs: Last Vital Signs Pulse 79 01/05/25 09:49 Resp 16 01/05/25 09:49 BP 132/80 01/05/25 09:49 Pulse Ox 98 01/05/25 09:49 Oxygen Delivery Method Room Air 01/05/25 09:49 BMI result Body Mass Index 30.9 Vital signs reviewed Physical Examination CONSTITUITIONAL Patient alert and cooperative. Well appearing and in no apparent painful distress HEENT Conjunctiva and sclera clear. ?Pupils equal round and reactive to light. ?No lymphadenopathy. ? CHEST/RESPIRATORY SYSTEM Normal respiratory effort and able to speak in complete sentences. ?Clear to auscultation bilaterally. ?No crackles, rales, rhonchi, wheezes heard. CARDIAC SYSTEM Regular rate and rhythm. ?S1 and S2 heard no murmurs. ?Radial pulses intact bilaterally MSK Hands: ?Able to make a fist. No synovitis noted to the MCPs, PIPs or DIPs. ?No tenderness to palpation of these joints. No deformities noted. ? Wrists: ?Full range of motion at the wrists without pain. ?No tenderness to palpation or synovitis noted to the wrists. Elbows: Full range of motion without pain. No tenderness, weakness, swelling, increased warmth or erythema. Shoulders: Decreased range of motion bilaterally with tenderness to palpation of the subacromial bursa bilaterally SKIN Skin intact without rashes. Office Procedures AMB Joint Injection/Aspiration Joint Injection/Aspiration Details: Procedure was explained to the patient and consent was obtained. ? The area of interest was identified and confirmed with patient. ?This was subsequently cleaned with chlorhexidine x3. ? The area was then anesthetized using ethyl chloride spray. 40 mg Kenalog with 1 cc 1% lidocaine was injected without issue. ?Minimal to no bleeding. ?Patient tolerated procedure. Primary Site: right shoulder Prep: site was prepped using aseptic technique and ethochloride spray was applied Injected: 40 mg of, Kenalog, with 1 mL of and 1% plain lidocaine Approach Used: other Procedure: The patient tolerated the procedure well (post procedure patient was a little dizzy. She was allowed to lay down for a 10 mins with improvement) Coding 60412 - Large joint Procedure code (CPT) selection complete AMB Joint Injection/Aspiration Joint Injection/Aspiration Details: Procedure was explained to the patient and consent was obtained. ? The area of interest was identified and confirmed with patient. ?This was subsequently cleaned with chlorhexidine x3. ? The area was then anesthetized using ethyl chloride spray. 40 mg Kenalog with 1 cc 1% lidocaine was injected without issue. ?Minimal to no bleeding. ?Patient tolerated procedure. Primary Site: left shoulder Prep: site was prepped using aseptic technique and ethochloride spray was applied Injected: 40 mg of, Kenalog, with 1 mL of, 1% plain lidocaine and in the subcromial space Approach Used: other Procedure: The patient tolerated the procedure well Coding 50368 - Large joint Procedure code (CPT) selection complete Office Meds lidocaine (PF) 10 mg/mL (1 %) injection solution Performing Provider: Haven Amezquita MD Performing Location: [facility] [place] Rheumatology Administered by: Haven Amezquita MD on 01/05/25 10:43 Dose Route Admin Location Dispensed Lot Number Expiration Date [facility] Biopsychologist 1 mL Infiltration right subacromial bursa 2 mL [id number] 10/28/26 49707-522-89 [facility] Kenalog 40 mg/mL suspension for injection Performing Provider: Haven Amezquita MD Performing Location: [facility] [place] Rheumatology Administered by: Haven Amezquita MD on 01/05/25 10:43 Dose Route Admin Location Dispensed Lot Number Expiration Date [facility] Biopsychologist 40 mg intrabursal right subacromial bursa 1 mL [id number] 02/27/26 [address]-2 [employer] lidocaine (PF) 10 mg/mL (1 %) injection solution Performing Provider: Haven Amezquita MD Performing Location: [facility] [place] Rheumatology Administered by: Haven Amezquita MD on 01/05/25 10:43 Dose Route Admin Location Dispensed Lot Number Expiration Date [place] Biopsychologist 1 mL Infiltration left shoulder 2 mL [id number] 10/28/26 39426-397-49 [facility] Kenalog 40 mg/mL suspension for injection Performing Provider: Haven Amezquita MD Performing Location: [facility] [place] Rheumatology Administered by: Haven Amezquita MD on 01/05/25 10:43 Dose Route Admin Location Dispensed Lot Number Expiration Date [facility] Biopsychologist 40 mg intrabursal left shoulder 1 mL [id number] 02/27/26 [address]-4 [employer] Results Reviewed Results Reviewed: XR Right Shoulder 02/2022 FINDINGS: Mild subchondral erosive changes right AC joint. Minimal inferior glenohumeral joint loose body is seen as well. No visible acute fracture, spurring, dislocation or soft tissue calcification. XR/XR shoulder RT min 2V IMPRESSION: Mild degenerative changes right AC joint and right glenohumeral joint. MRI Right Shoulder 05/2023 FINDINGS: ROTATOR CUFF: [id number] generalized rotator cuff tendinosis. No tendon tears. No muscle atrophy or fatty infiltration. BICEPS: Normal. CORACOACROMIAL ARCH: The undersurface of the acromion is curved with no subacromial spur. There is moderate acromioclavicular osteoarthritis with distal clavicular osteolysis and marked subchondral marrow edema of both the distal clavicle and acromion. Mild adjacent subacromial subdeltoid bursitis. LABRUM/CAPSULE: The glenoid labrum is diminutive diffusely, most consistent with a combination of labral degeneration and normal variation. This is most pronounced inferiorly. No discrete tears. Joint capsule is unremarkable. GLENOHUMERAL JOINT/MARROW: Small marginal osteophytes at the and humeral joint. Mild marrow edema signal in the glenoid osteophytes posteriorly and inferiorly. No fracture or malalignment. No joint effusion. A 5 x 5 x 2 mm low signal intensity chondral loose body is present in the axillary pouch. IMPRESSION: 1. Moderate acromioclavicular osteoarthritis with distal clavicular osteolysis and mild underlying subacromial subdeltoid bursitis. 2. Pvfk-cq-wwozogdr generalized rotator cuff tendinosis. No tears. 3. Mild glenohumeral osteoarthritis with a 5 mm chondral loose body in the axillary pouch. Assessment & Plan Assessment & Plan (1) Carpal tunnel syndrome of left wrist: Code(s): G56.02 - Carpal tunnel syndrome, left upper limb Plan: #Left wrist carpal tunnel Patient is a 49-year-old female with fibromyalgia and EMG proven right wrist carpal tunnel today complaining of numbness and tingling and similar features to her left wrist. Patient would like definitive diagnosis for carpal tunnel for her wrists. We will send an EMG Plan - EMG - RTC 6 months to follow up fibromyalgia (2) Subacromial bursitis of both shoulders: Code(s): M75.51 - Bursitis of right shoulder; M75.52 - Bursitis of left shoulder Plan: #Subacromial bursitis of bilat shoulders Patient with tenderness to palpation of bilateral subacromial bursa now status post steroid injection today. Of note after her steroid injection to the shoulders she was feeling a little bit dizzy and had to lay down for a bit but this resolved. Likely a vasovagal episode Plan I spent 20 minutes reviewing the record and labs, taking a history, examining the patient, discussing the treatment plan, ordering diagnostic work up and documenting in the medical record Orders: Orders NE electromyogram (EMG) Today G56.02 - Carpal tunnel syndrome, left upper limb NE nerve conduction velocity Today G56.02 - Carpal tunnel syndrome, left upper limb AMB Joint Injection/Aspiration Today M75.51 - Bursitis of right shoulder, M75.52 - Bursitis of left shoulder AMB Joint Injection/Aspiration Today M75.51 - Bursitis of right shoulder, M75.52 - Bursitis of left shoulder Coding Level of Care Code Est Pt Level 3 (24175) Diagnoses Carpal tunnel syndrome of left wrist G56.02 Subacromial bursitis of both shoulders M75.51; M75.52 CPT Codes Coding - 51804 Large joint: 78690 - Large joint ([id number]) Coding - 89101 Large joint: 13427 - Large joint ([id number])
[2025-01-05 09:49] VITALS: BP 132/80; PULSE 79; RESP 16; O2SAT 98; BMI 30.9
== END 2025-01-05 10:54 | disposition home or self-care (01) ==
LOC: HO.RHE 09:02
PROVIDERS: PCP Internal Medicine; Visit Provider Student in an Organized Health Care Education/Training Program
DX: G56.02 Carpal tunnel syndrome, left upper limb (principal); M75.51 Bursitis of right shoulder; M75.52 Bursitis of left shoulder
CPT/HCPCS: 20610; 99213

== ENCOUNTER → 2025-01-05 09:01 | Outpatient (BNVA) | payer OTHER, SELFPAY | PROVIDERS: PCP Internal Medicine; Visit Provider Student in an Organized Health Care Education/Training Program | DX: M75.51 Bursitis of right shoulder (principal); M75.52 Bursitis of left shoulder; M25.512 Pain in left shoulder; M25.511 Pain in right shoulder; M79.7 Fibromyalgia; G56.02 Carpal tunnel syndrome, left upper limb | CPT/HCPCS: 20610; 99212; J3300 ==

== ENCOUNTER 2025-01-18 08:52 | Outpatient (AMB) | payer OTHER, SELFPAY ==
--- NOTE | 2025-01-18 08:58 | A.SPINEOV_ITS ---
Intake Visit Reasons: discuss sx Intake Note: Ms. Myrick is here to Discuss Surgery. Clarifier Operator Helper Required: Yes Clarifier Operator Helper Services: Clarifier Operator Helper Present Clarifier Operator Helper Name: Cary Higginbotham LM Allergies tramadol [From ULTRAM] Allergy (Severe, Verified 01/18/25 09:04) ANAPHYLAXIS Assessment & Plan Assessment & Plan (1) Radiculopathy, lumbar region: Code(s): M54.16 - Radiculopathy, lumbar region Category: Medical Plan Thais is a pleasant 49 year old female who comes in today for subsequent follow- up to discuss the possibility of surgery. To recap she is suffering from a fairly significant right-sided lumbar radiculopathy that has been previously treated by our colleagues in pain management. See previous office visit notes for specifics and workup regarding her current issue. Today, she states that her most recent injection at L5-S1 about 2 months ago gave her about 80% relief for pain for 2 weeks. Unfortunately, her symptoms continue to return after injections. Today she reports the shooting pain down her right lower extremity starts in her low back, shoots into her posterior buttocks down her posterior thigh and into the posterior/lateral gastrocnemius, terminating near her right lateral ankle. She occasionally will experience pain shooting down the right lateral aspect of her foot as well. We discussed the possibility of right-sided lumbar decompression L4-5, L5-S1 during this visit. We extensively discussed the surgery using our spine models in office today. She understands that there is not much compression left at L5- S1, therefore Dr. Mathews may prefer to simply address the L4-5 segment. She would like to proceed with surgery. I will review her case with Dr. Mathews and call her with updates thereafter. The patient was given risk and benefits of surgery including but not limited to infection, hematoma, nerve injury, durotomy, weakness, bowel/bladder injury, persistent pain, and pseudoarthosis or instrumentation failure if they are undergoing lumbar fusion. In addition to this for males undergoing anterior lumbar fusion there is a low risk of retrograde ejaculation. We also discussed the option to continue with conservative treatment and patient wishes to proceed with surgery. They are aware they should stop NSAIDs 7 days prior to surgery. All questions were answered to the best of our ability. If there is anything about this patients medical history that we have overlooked or concerns you have about us proceeding with surgery we would appreciate any input you can offer. Luis Mathews MD,PhD [facility] Coding Level of Care Code Global (51471) Diagnoses Radiculopathy, lumbar region M54.16
--- OUTSIDE RECORDS SUMMARY | 2025-01-18 09:03 | XMS_ITS | Encounter Summary ---
Author Organization [employer] [facility] Address [address] [place] [address] Care Team Providers Care Flatwork Assembler Name Role Phone Unavailable Primary Care Provider Unavailabl e Encounter Details Date Type Department Care Team (Latest Contact Info) Description 11/05/2021 Abstract [facility] CONVERSIONS Dental, Provider, DDS Social History [...]
--- OUTSIDE RECORDS SUMMARY | 2025-01-18 09:03 | XMS_ITS | Clinical Summary ---
Author Organization [employer] [facility] Address [address] [place] [address] Care Team Providers Care Supervisor Benzene Refining Name Role Phone Unavailable Primary Care Provider [...] 1974 FIT 1974 FOBT 1974 Sigmoidoscopy 1974 Disability Screening 1974 Alcohol/Substance Use Screening 1986 Tobacco Screening [...]
--- OUTSIDE RECORDS SUMMARY | 2025-01-18 09:03 | XMS_ITS | Clinical Summary ---
Author Organization [facility] Address [address] [place] [address] Care Team Providers Care Paving Block Cutter Name Role Phone Unavailable Primary Care Provider [...]
--- OUTSIDE RECORDS SUMMARY | 2025-01-18 09:03 | XMS_ITS | Encounter Summary ---
Author Organization [employer] [facility] Address [address] [place] [address] Care Team Providers Care Home Appliance Tech Name Role Phone Unavailable Primary Care Provider Unavailabl e Encounter Details Date Type Department Care Team (Latest Contact Info) Description 12/13/2018 Abstract [facility] CONVERSIONS Dental, Provider, DDS Social History [...]
== END 2025-01-18 11:02 | disposition home or self-care (01) ==
LOC: HO.HNS 08:53
PROVIDERS: PCP Internal Medicine; Visit Provider Physician Assistant
DX: M54.16 Radiculopathy, lumbar region (principal)
CPT/HCPCS: 99214

== ENCOUNTER → 2025-01-18 08:52 | Outpatient (BNVA) | payer OTHER, SELFPAY | PROVIDERS: PCP Internal Medicine; Visit Provider Physician Assistant | DX: M54.16 Radiculopathy, lumbar region (principal) | CPT/HCPCS: 99212 ==

== ENCOUNTER 2025-02-21 12:52 | Outpatient (REF) | payer OTHER, SELFPAY ==
--- NOTE | 2025-02-21 12:55 | EMG_ITS ---
Chief complaint: Left hand numbness Previous EMGs: 08/2023 showing possible right L5-S1 radiculopathy. 05/2023 showing right borderline/very mild Carpal Tunnel Syndrome. Reason for referral: Evaluate for Carpal Tunnel Syndrome Referred by: Dr. Amezquita Procedure done: Left upper extremity NCS/EMG Precautions and/or limitations: None The limb temperature was monitored continuously and remained between 32-36 degrees C during the performance of the NCS. Nerve Conduction Studies Anti Sensory Summary Table ?Stim Site NR Onset (ms) Norm Onset (ms) Peak (ms) Norm Peak (ms) O-P Amp (?V) Norm O-P Amp Site1 Site2 Delta-0 (ms) Dist (cm) Cooper (m/s) Norm Cooper (m/s) Left Median Anti Sensory (2nd Digit) Wrist ? 2.5 3.1 <3.6 40.7 >10 Wrist 2nd Digit 2.5 14.0 56 Left Ulnar Anti Sensory (5th Digit) Wrist ? 2.1 2.7 <3.7 47.2 >15.0 Wrist 5th Digit 2.1 14.0 67 Motor Summary Table ?Stim Site NR Onset (ms) Norm Onset (ms) O-P Amp (mV) Norm O-P Amp iAmp (mV) Amp (1st) (%) Site1 Site2 Delta-0 (ms) Dist (cm) Cooper (m/s) Norm Cooper (m/s) Left Median Motor (Abd Poll Brev) Wrist ? 3.4 <3.9 11.8 >4.5 15.6 100.0 Elbow Wrist 3.1 20.0 65 >45 Elbow ? 6.5 10.9 14.5 92.4 Left Ulnar Motor (Abd Dig Minimi) Wrist ? 2.3 <3.0 9.0 >5 11.0 100.0 B Elbow Wrist 2.9 19.0 66 >45 B Elbow ? 5.2 8.5 10.6 94.4 A Elbow B Elbow 1.3 10.0 77 >45 A Elbow ? 6.5 8.5 10.5 94.4 Comparison Summary Table ?Stim Site NR Peak (ms) Norm Peak (ms) P-T Amp (?V) Site1 Site2 Delta-P (ms) Norm Delta (ms) Left Median/Radial Dig I Comparison (Digit 1 - 10cm) Median ? 2.6 <2.9 61.2 Median Radial 0.5 Radial ? 2.1 <2.8 23.6 EMG ?Side Muscle Nerve Root Ins Act Fibs Psw Amp Dur Poly Recrt Int Pat Comment Left 1stDorInt Ulnar C8-T1 Nml Nml Nml Nml Nml 0 Nml Complete Left FlexCarRad Median C6-7 Nml Nml Nml Nml Nml 0 Nml Complete Left Biceps Musculocut C5-6 Nml Nml Nml Nml Nml 0 Nml Complete Left Triceps Radial C6-7-8 Nml Nml Nml Nml Nml 0 Nml Complete Left Deltoid Axillary C5-6 Nml Nml Nml Nml Nml 0 Nml Complete FINDINGS: Interlatency difference between left median and radial sensory nerves was 0.5. All other motor and sensory nerves tested showed normal latencies, amplitudes and conduction velocities. Concentric needle EMG was performed in selected muscles of the left upper extremity. Study did not reveal signs of electric abnormalities as shown in the table above. IMPRESSION: 1. There is electrodiagnostic evidence for left borderline/very mild median neuropathy at the wrist, could still be consistent with carpal tunnel syndrome. 2. There is no electrodiagnostic evidence for ulnar neuropathy, brachial plexopathy, or cervical radiculopathy. Thank you for your kind referral. Jany Richardson MD, TREVOR Board Certified, [place] Board of Physical Medicine and Rehabilitation (ABPMR) Board Certified, [place] Board of Electrodiagnostic Medicine (ABEM) CODIN 49972 MTDD
--- OUTSIDE RECORDS SUMMARY | 2025-02-21 14:59 | XMS_ITS | Clinical Summary ---
Author Organization [facility] Address [address] [place] [address] Care Team Providers Care Six Sigma Black Trainer Name Role Phone Unavailable Primary Care Provider [...]
== END 2025-02-21 12:53 | disposition home or self-care (01) ==
LOC: HO.NEURO 12:52
PROVIDERS: PCP Internal Medicine; Visit Provider Student in an Organized Health Care Education/Training Program
DX: G56.02 Carpal tunnel syndrome, left upper limb (principal)
CPT/HCPCS: 95886; 95909

== ENCOUNTER → 2025-02-21 12:55 | Outpatient (BNV) | payer OTHER, SELFPAY | PROVIDERS: PCP Internal Medicine; Visit Provider Physical Medicine & Rehabilitation | DX: G56.02 Carpal tunnel syndrome, left upper limb (principal); R20.0 Anesthesia of skin; R20.2 Paresthesia of skin | CPT/HCPCS: 95886; 95909 ==

== ENCOUNTER 2025-03-06 05:39 | Day surgery (SDC) | payer OTHER, SELFPAY ==
--- OUTSIDE RECORDS SUMMARY | 2025-01-29 13:32 | XMS_ITS | Clinical Summary ---
Author Organization [facility] Address [address] [place] [address] Care Team Providers Care Fruit Preserver Name Role Phone Unavailable Primary Care Provider [...]
[2025-02-20 10:32] VITALS: BP 137/85; PULSE 65; RESP 18; O2SAT 96; BMI 32.1
[2025-02-20 11:36] LABS: Hematocrit 41.8 % (37.0-47.0); Hemoglobin 13.5 g/dl (12.0-16.0); Mean Corpuscular HGB Conc 32.3 g/dl (31.0-35.0); Mean Corpuscular Hemoglobin 29.2 pg (27.0-33.0); Mean Corpuscular Volume 90.3 fL (80.0-98.0); NRBC Abs Auto 0.000 X10*3/uL (0.0-0.012); NRBC Pct Auto 0.0 /100WBC (0.0-0.2); Platelet Count 243 X10*3/uL (160-400); Red Blood Count 4.63 X10*6/uL (4.20-5.50); White Blood Count 6.8 X10*3/uL (4.8-10.8)
[2025-02-20 12:03] LABS: Anion Gap 11 (12-20); Blood Urea Nitrogen 17 mg/dL (9-16); Calcium 9.9 mg/dL (8.4-10.2); Carbon Dioxide 28 mmol/L (22-29); Chloride 108 mmol/L (96-108); Creatinine Clr Calc Pharmacy 102.3; Estimated Glomerular Filt Rate > 60; Potassium 4.0 mmol/L (3.3-5.1); Sodium 143 mmol/L (135-145)
[2025-03-06] VITALS (14 sets, daily range): BP systolic 111–152; BP diastolic 74–99; PULSE 50–69; RESP 16–22; TEMP 36.1–37.2; O2SAT 96–100; BMI 30.7
--- NOTE | ~2025-03-06 | FL_ITS ---
EXAMINATION: FL GUIDANCE ONLY HISTORY: L4-S1 decompression COMPARISON: Correlation is made with an MRI of the lumbar spine dated 11/23/2024. TECHNIQUE: Fluoroscopy time: 6 seconds. Cumulative Dose: 5.7620 mGy. DAP: 2.5064 mGym2 Images: 1. FINDINGS: A single fluoroscopic spot film of the lumbar spine in the lateral projection demonstrates a probe directed toward the L5-S1 intervertebral disc space from a posterior approach. FL/FL guidance in OR IMPRESSION: Fluoroscopy during procedure. Please see procedure report for additional information. Electronically signed by: Vlad Demarco MD 03/06/2025 09:49 AM EDT
[2025-03-06 06:22] LABS: UPreg QC Valid YES
[2025-03-06] MEDS: Lactated Ringers 1,000 ML 100 ML IVCONT (06:52)
--- NOTE | 2025-03-06 07:00 | P.HPSUR_ITS ---
Pre-Procedural Eval Section A - 24 Hr Update-Section A only Date of Service: 03/06/25 The patient is an INPATIENT: No Changes since office visit: No Cold of Flu in the past 2 weeks, No New Medical Problems, No Changes in Medication and No Patient answered all questions The patient has been examined within 24 hours of the surgical procedure. The History & Physical has been completed within 30 days and I have reviewed it.: No Section B - Complete if H&P > 30 days Chief Complaint: Radiculopathy, lumbar region Allergies: Allergies Allergy/AdvReac Type Severity Reaction Status Date / Time tramadol (From ULTRAM) Allergy Severe ANAPHYLAXIS Verified 03/06/25 06:15 Review of Systems Sugical H&P ROS: Negative: Constitution, Cardiovascular, Respiratory, Neurological, Psychiatric, Hem-Onc, Allergic/Immunologic, Gastrointestinal, Genitourinary, Musculoskeletal, Integumentary, Endocrine and Eyes/Ears/Nose/Thro at Exam Surgical H&P Exam: Normal: HEENT, Normal: Heart, Normal: Lungs, Normal: Extremities, Normal: Abdomen, Normal: Skin and Normal: Neurological (awake, alert,oriented x 3 ) Plan Diagnosis/Plan: Unchanged L4-S1 decompression Time Spent With Patient Time: Total time managing care of this patient today _5___ minutes.
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
--- NOTE | 2025-03-06 09:06 | P.OP_ITS ---
Operative Note Operative Note Date of Service: 03/06/25 Narrative: Preoperative Diagnosis: L4-5, L5-S1 spinal stenosis/lateral recess stenosis/neural foraminal stenosis Operation: Right L4-5 and L5-S1 Laminotomy, Partial facetectomy and foraminotomy with use of microscope Consent Informed Consent was obtained for this operation. I have explained the nature, purpose and benefits of the operation. I have discussed the risks and benefit of the operation including possible complications or adverse events with patient/family. Alternative(s) were discussed with the patient with their relative benefits and risks as well as the consequences of not accepting the operation were included in obtaining consent. Surgeon: KENDRICK MCGINNIS MD, PHD Procedure Assisted By: Michael Gaines Description of Procedure This 49-year-old female suffering from right lumbar radiculopathy in an L5 and S1 distribution. An MRI shows L4-5 and L5-S1 lateral recess stenosis and a superimposed disc bulge at L4-5. The patient was offered a decompression. The procedure complications were explained. The patient was consented. The patient was brought to the operating room and endotracheally intubated. The patient was turned in prone position on the Mark frame. Prep and drape was done followed by timeout. The Physician payroll human resources assistant provided access. A mid lumbar incision was made followed by release of the paravertebral muscle on the right side to expose the L4, L5 and S1 laminae and facet joints. An intraoperative x-ray was obtained to confirm the correct level. The microscope was brought in. I took over the procedure. The high-speed drill was used to do a right L4 and L5 laminotomy unt il flavum ligament was reached. A #2 Kerrison was used to expand the laminotomy near flush to the pedicles and to include a partial facetectomy. The flavum ligament was opened and resected with a #3 Kerrison to decompress the underlying thecal sac. The flavum ligament was removed to decompress the lateral recess and the exiting L5 nerve root. I decided to also inspected disc space. Initially, I was only able to feel a small disc bulge however in the axilla there was resistance with a nerve hook and eventually a large disc fragment was removed from that area that further decompressed the nerve root. A long nerve hook could be easily passed along the medial side of the pedicle as a sign of adequate decompression. Then I turned the attention to the L5-S1 region. A right L5-S1 laminotomy was done, including a partial facetectomy. Hypertrophied flavum ligament was opened and resected to decompress the underlying S1 nerve root. The microscope was removed. Hemostasis was done. The physician payroll human resources assistant close the Incision in 2 layers. Steri-Strips were used to approximate incision. An OpSite with Tegaderm was used to cover the incision. All sponge needle counts were correct. Patient was extubated and transported in stable is to recovery room. Anesthesia: General Estimated Blood Loss (ml): 20 Complications: None Duration of Surgery: Under 70 Minutes Postoperative Plan: Discharge to home
--- NOTE | 2025-03-06 09:24 | PM.DS ---
DS: Providers Provider Date of Service: 03/06/25 Date of discharge: 03/06/25 Primary care physician: Charles Way MD Admitting clinician: Orion Mathews DS: Diagnosis Discharge Diagnosis (1) Radiculopathy, lumbar region: Status: Acute DS: Summary Time Attestation Discharge Coordination Time (in mins): 4 Quality: Safe Use of Opioids Does Pt have an Active Cancer Diagnosis on the Problem List?: No Quality: Stroke Does the patient have a stroke diagnosis?: No Physical Exam Vital Signs: Vital Signs: Last Vital Signs Temp 98.9 F 03/06/25 06:28 Pulse 63 03/06/25 06:28 Resp 16 03/06/25 06:28 BP 134/85 03/06/25 06:28 Pulse Ox 97 03/06/25 06:28 O2 Del Method Room Air 03/06/25 06:28 BMI result Body Mass Index 30.7 DS: Data Data Completed and Pending Labs on day of discharge: Laboratory Results - last 24 hr 03/06/25 06:05 Urine Test NEGATIVE Discharge Plan Discharge Patient Disposition: Home, Self-Care Referrals: Charles Way MD [Primary Care Provider, Internal Medicine] - 1 Week Discharge Medications: New docusate sodium [Colace] 100 mg capsule 100 mg PO BID Qty: 20 0RF oxycodone 5 mg tablet 5 mg PO Q4H PRN (Reason: pain) Qty: 20 0RF Rx Instructions: Partial Fill upon patient request. Continued diclofenac sodium [Arthritis Pain (diclofenac)] 1 % gel 2 g topical QID PRN (Reason: pain) Qty: 100 0RF Rx Instructions: apply to single elbow, wrist or hand; for hand includes palm/fingers/back of hand lidocaine [Lidoderm] 5 % adhesive patch,medicated 1 patch topical NEEDED PRN (Reason: Pain) Rx Instructions: leave on most painful area for up to 12 hrs diclofenac potassium 50 mg tablet 50 mg PO BID PRN (Reason: pain) Qty: 60 0RF Rx Instructions: Do not take with any other nonsteroidal anti-inflammatory medications cyclobenzaprine 5 mg tablet 5 mg PO Q8H PRN (Reason: muscle spasm) Qty: 60 0RF Rx Instructions: No driving while taking this medication, do not take with any other [employer] depressants Discharge Orders: Discharge Order (Routine); Ordered 03/06/25 Ordered By: Michael Duncan Diet: Advance to usual diet Activity on Discharge: As tolerated Activity Restrictions/Additional Instructions: After your spinal surgery we ask you to observe the following restrictions/guidelines: Activity: It is normal to feel some discomfort as you increase your activity, but that will improve with time. We ask you avoid heavy lifting or acitivities that cause pain. As a general rule, 8lbs is a safe limit for lifting right after surgery. Walk as much as you feel comfortable but not to exhaustion. You will feel extra tired the first few days after surgery. Stay well hydrated. It is OK to walk up and down stairs You may return to driving when you are off narcotics (such as vicodin, oxycodone, dilaudid, etc), and you are back to normal functional capacity. If you have any concerns please check with office before driving. Return to work is specific to each patient and each surgery, so please speak with your doctor/PA at first follow up. Please bring paperwork such as FMLA at that time if you need it filled out. Medications: For optimum pain control, it is best to start with a combination of 500 mg of Tylenol every 4 hours with 600 mg of Motrin every 8 hours, and use narcotics as needed in between for breakthrough pain. We will give you a short supply of narcotics after surgery (usually one weeks worth). If you need more please call the office but do not use more than prescribed. You will need to give our office 48 hours notice if you need narcotics refilled and we do not fill narcotics on weekends or evenings. If you are on a narcotic, it is a good idea to take a stool softener such as colace or senna to avoid constipation If you take blood thinner such as aspirin, Plavix, Coumadin, Effient, Eliquis etc for conditions such as Afib, DVT, Pulmonary embolus, coronary disease, stents etc please speak with your surgeon about specific details as to when you can resume these medications. You can resume NSAIDs on post op day 1 (eg: Motrin, Naproxen, etc). Follow up: Please call the office, , after surgery to arrange a 3 week follow up for wound check. Wound Care: You may remove your dressing on the first day after surgery. ?You may ?leave open to air. Please do not remove the steri strips underneath. they will fall off on their own in one week. IT IS NORMAL FOR THE WOUND TO OOZE OR BE BLOODY FOR A FEW DAYS AFTER SURGERY. ?IF THIS HAPPENS JUST PLACE NEW DRESSING OVER IT TO AVOID STAINING CLOTHES. You may shower on post op day # 1 We ask that you do not let the water soak the wound. If it does get wet, just towel dry lightly. Please do not scrub your incision or place any type of chemical/ointment on the wound. No tub baths, pools or jacuzzis for one month. If you have any leaking or redness from your wound, or fevers, please call office Print Language: Venezuelan
[2025-03-06] MEDS: oxyCODONE HCl Immed Release 5 MG TABLET PO (10:02)
== END 2025-03-06 12:30 | disposition home or self-care (01) ==
PROVIDERS: Anesthesiology; Nurse Practitioner; PCP Internal Medicine; Visit Provider Neurological Surgery
PROC: (CPT 63047; principal; 2025-03-06 07:30)
DX: M48.062 Spinal stenosis, lumbar region with neurogenic claudication (principal); M51.16 Intervertebral disc disorders with radiculopathy, lumbar region; M47.816 Spondylosis without myelopathy or radiculopathy, lumbar region; M79.7 Fibromyalgia; F32.A Depression, unspecified; F41.9 Anxiety disorder, unspecified; E78.00 Pure hypercholesterolemia, unspecified; Z79.899 Other long term (current) drug therapy; Z88.5 Allergy status to narcotic agent; Z98.890 Other specified postprocedural states
CPT/HCPCS: 63047; 63048; 36415; 80048; 81025; 85027; J0131; J0690; J1100; J1630; J1885; J2003; J2250; J2405; J2704; J3010

== ENCOUNTER → 2025-03-06 05:39 | Outpatient (BNV) | payer OTHER, SELFPAY | PROVIDERS: PCP Internal Medicine; Visit Provider Neurological Surgery | DX: M48.062 Spinal stenosis, lumbar region with neurogenic claudication (principal) | CPT/HCPCS: 63047; 63048; 99499 ==

== ENCOUNTER 2025-03-15 09:31 | Outpatient (AMB) | payer OTHER, SELFPAY ==
[2025-03-15 09:35] VITALS: BP 122/90; PULSE 68; O2SAT 97
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
--- OUTSIDE RECORDS SUMMARY | 2025-03-15 09:49 | XMS_ITS | Encounter Summary ---
Author Organization [facility] [facility] Address [address] [place] [address] Care Team Providers Care Examiner Of Currency Name Role Phone Unavailable Primary Care Provider Unavailabl e Encounter Details Date Type Department Care Team (Latest Contact Info) Description 12/13/2018 Abstract [facility] CONVERSIONS Dental, Provider, DDS Social History [...]
--- OUTSIDE RECORDS SUMMARY | 2025-03-15 09:49 | XMS_ITS | Clinical Summary ---
Author Organization [facility] ity Address [address] [place] [address] Care Team Providers Care Band Singer Name Role Phone Unavailable Primary Care Provider [...] Vaccines (1 of 2) 2024 Influenza Vaccine (#1) 2025 HIB Vaccines Aged Out No longer [...]
== END 2025-03-15 10:22 | disposition home or self-care (01) ==
LOC: HO.HMCH 09:32
PROVIDERS: PCP Internal Medicine; Visit Provider Internal Medicine
DX: M54.16 Radiculopathy, lumbar region (principal); M51.362 Other intervertebral disc degeneration, lumbar region with discogenic back pain and lower extremity pain; E78.00 Pure hypercholesterolemia, unspecified; E66.9 Obesity, unspecified; E55.9 Vitamin D deficiency, unspecified; M79.7 Fibromyalgia; G47.00 Insomnia, unspecified; F43.10 Post-traumatic stress disorder, unspecified; F41.9 Anxiety disorder, unspecified; F32.9 Major depressive disorder, single episode, unspecified

== ENCOUNTER → 2025-03-15 09:31 | Outpatient (BNVA) | payer OTHER, SELFPAY | PROVIDERS: PCP Internal Medicine; Visit Provider Internal Medicine | DX: M79.7 Fibromyalgia (principal); M51.362 Other intervertebral disc degeneration, lumbar region with discogenic back pain and lower extremity pain; M54.16 Radiculopathy, lumbar region; E78.00 Pure hypercholesterolemia, unspecified; E55.9 Vitamin D deficiency, unspecified; G47.00 Insomnia, unspecified; F43.10 Post-traumatic stress disorder, unspecified; F41.9 Anxiety disorder, unspecified; F32.9 Major depressive disorder, single episode, unspecified; E66.9 Obesity, unspecified | CPT/HCPCS: 96127; 99212 ==

== ENCOUNTER 2025-03-28 13:26 | Outpatient (AMB) | payer OTHER, SELFPAY ==
--- NOTE | 2025-03-28 13:39 | HO.SPINEOV ---
Intake Visit Reasons: 1st post op Intake Note: Ms. Myrick is here today for her 1st post op. Computer Project Manager Required: Yes Computer Project Manager Services: Computer Project Manager Present Computer Project Manager Name: Cary Higginbotham LM Allergies tramadol (From ULTRAM) Allergy (Severe, Verified 03/28/25 13:39) ANAPHYLAXIS Assessment & Plan Assessment & Plan (1) Facet arthritis, degenerative, L5-S1 level, lumbosacral spine: Code(s): M47.817 - Spondylosis without myelopathy or radiculopathy, lumbosacral region Category: Medical Plan Mrs Myrick is here 3 weeks out from her right L4-5 microdiskectomy, right L5-S1 decompression. She sought significant relief from her leg pain almost immediately after surgery. She still has dysesthesias from her ankle down into her lateral foot on the 3rd 4th and 5th toes. Her wound is healed up beautifully. She has been having some back pain with standing and has been limiting her activities. 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 She has been using a cane to get around. We talked about activity guidelines, restrictions and expectations after lumbar microdiskectomy. Obviously she will not be able to lift for another few weeks, but other than that have encouraged her to increase her activity. She was asking for an extra 2 weeks on top of the 6 weeks we gave her to go back to work, and I told her that would be fine but after that she would need to return to work and function is normal. I will schedule her for a 6 week final postoperative visit, but told her she is doing well just call and cancel the appointment. Michael Mathews MD, PhD [facility] Coding Level of Care Code Global (91303) Diagnoses Facet arthritis, degenerative, L5-S1 level, lumbosacral spine M47.817
--- OUTSIDE RECORDS SUMMARY | 2025-03-28 14:00 | XMS_ITS | Clinical Summary ---
Author Organization [facility] ity Address [address] [place] [address] Care Team Providers Care General Repairer Name Role Phone Unavailable Primary Care [...] Smear 1995 Colorectal Cancer Screening: Colonoscopy 09/24/2023 HIV Screening 09/24/2023 Hepatitis C Screening 09/24/2023 Social Influencers of Health Screening 09/24/2023 COVID-19 Vaccine (1 - 2023-2 5 season) 2024 Depression Screening 08/30/2024 Pneumococcal Vaccine: 50+ Ye ars (1 of [...]
--- OUTSIDE RECORDS SUMMARY | 2025-03-28 14:00 | XMS_ITS | Encounter Summary ---
Author Organization [employer] [facility] Address [address] [place] [address] Care Team Providers Care Wool Hat Hydraulicker Name Role Phone Unavailable Primary Care Provider Unavailabl e Encounter Details Date Type Department Care Team (Latest Contact Info) Description 12/13/2018 Abstract [facility] CONVERSIONS Dental, Provider, DDS Social [...]
== END 2025-03-28 14:06 | disposition home or self-care (01) ==
LOC: HO.HNS 13:27
PROVIDERS: PCP Internal Medicine; Visit Provider Physician Assistant
DX: M47.817 Spondylosis without myelopathy or radiculopathy, lumbosacral region (principal)
CPT/HCPCS: 99024

== ENCOUNTER → 2025-03-28 13:26 | Outpatient (BNVA) | payer OTHER, SELFPAY | PROVIDERS: PCP Internal Medicine; Visit Provider Physician Assistant | DX: M47.817 Spondylosis without myelopathy or radiculopathy, lumbosacral region (principal); Z98.890 Other specified postprocedural states | CPT/HCPCS: 99212 ==

== ENCOUNTER 2025-05-10 14:48 | Outpatient (AMB) | payer MEDICAID, SELFPAY ==
--- NOTE | 2025-05-10 15:55 | A.SPINEOV_ITS ---
Intake Visit Reasons: 2nd post op Intake Note: Ms. Myrick is here today for her 2nd post op. Pump Servicer Helper Required: Yes Pump Servicer Helper Services: Pump Servicer Helper Present Pump Servicer Helper Name: Cary Anahy LM Allergies tramadol (From ULTRAM) Allergy (Severe, Verified 05/10/25 15:56) ANAPHYLAXIS Assessment & Plan Assessment & Plan (1) Facet arthritis, degenerative, L5-S1 level, lumbosacral spine: Code(s): M47.817 - Spondylosis without myelopathy or radiculopathy, lumbosacral region Category: Medical Plan Mrs Myrick is here in follow-up. This is a 2nd postoperative visit. Preoperative leg pain is gone. She continues to have some cramping and dysesthesias in her outer foot and her calf on the right but significantly improved compared to preop. She is still deals with some back pain but generally is able to function and has been back at work. At this point she has no restrictions. If anything returns or she has any future concerns I told her we would be happy to see her back in follow-up. Otherwise she can follow up with us on an as-needed basis. Michael Mathews MD, PhD [facility] Coding Level of Care Code Global (31409) Diagnoses Facet arthritis, degenerative, L5-S1 level, lumbosacral spine M47.817
--- OUTSIDE RECORDS SUMMARY | 2025-05-10 18:20 | XMS_ITS | Clinical Summary ---
Author Organization [employer] [facility] Address [address] [place] [address] Care Team Providers Care Field Counsel Name Role Phone Unavailable Primary Care Provider [...] Cancer Screening 2004 HPV/Cotest 2004 Mammogram 2014 Pneumococcal Vaccine: 50+ Ye ars (1 of 1 - PCV) 2024 Zoster Vaccines (1 of 2) 2024 COVID-19 Vaccine (1 - 2023-2 5 season) 2025 Influenza Vaccine (#1) 2025 RSV Patients and Pa tients Aged 60 [...]
--- OUTSIDE RECORDS SUMMARY | 2025-05-10 18:20 | XMS_ITS | Encounter Summary ---
Author Organization [employer] [facility] Address [address] [place] [address] Care Team Providers Care Gaming Cashier Name Role Phone Unavailable Primary Care Provider Unavailabl e Encounter Details Date Type Department Care Team (Latest Contact Info) Description 12/13/2018 Abstract [facility] CONVERSIONS Dental, Provider, DDS Social History [...]
--- OUTSIDE RECORDS SUMMARY | 2025-05-10 18:20 | XMS_ITS | Encounter Summary ---
Author Organization [employer] [facility] Address [address] [place] [address] Care Team Providers Care Block Engraver Name Role Phone Unavailable Primary Care Provider Unavailabl e Encounter Details Date Type Department Care Team (Latest Contact Info) Description 11/05/2021 Abstract [facility] CONVERSIONS Dental, Provider, DDS Social History Tobacco [...]
== END 2025-05-10 16:10 | disposition home or self-care (01) ==
PROVIDERS: PCP Internal Medicine; Visit Provider Physician Assistant
DX: M47.817 Spondylosis without myelopathy or radiculopathy, lumbosacral region (principal)
CPT/HCPCS: 99024

== ENCOUNTER → 2025-05-10 14:48 | Outpatient (BNVA) | payer OTHER, SELFPAY | PROVIDERS: PCP Internal Medicine; Visit Provider Physician Assistant | DX: M47.817 Spondylosis without myelopathy or radiculopathy, lumbosacral region (principal); R25.2 Cramp and spasm; R20.8 Other disturbances of skin sensation | CPT/HCPCS: 99212 ==

== ENCOUNTER 2025-06-19 09:22 | Outpatient (AMB) | payer OTHER, SELFPAY ==
[2025-06-19 09:42] VITALS: BP 124/82; PULSE 65; O2SAT 96; BMI 31.5
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
--- OUTSIDE RECORDS SUMMARY | 2025-06-19 10:24 | XMS_ITS | Clinical Summary ---
Author Organization [employer] [facility] Address [address] [place] [address] Care Team Providers Care Technical Aid Name Role Phone Unavailable Primary Care Provider [...]
--- OUTSIDE RECORDS SUMMARY | 2025-06-19 10:24 | XMS_ITS | Encounter Summary ---
Author Organization [employer] [facility] Address [address] [place] [address] Care Team Providers Care Wool Grader Name Role Phone Unavailable Primary Care Provider Unavailabl e Encounter Details Date Type Department Care Team (Latest Contact Info) Description 12/13/2018 Abstract [facility] CONVERSIONS Dental, Provider, DDS Social History [...]
--- OUTSIDE RECORDS SUMMARY | 2025-06-19 10:24 | XMS_ITS | Encounter Summary ---
Author Organization [employer] [facility] Address [address] [place] [address] Care Team Providers Care Policy Analyst Name Role Phone Unavailable Primary Care Provider Unavailabl e Encounter Details Date Type Department Care Team (Latest Contact Info) Description 11/05/2021 Abstract [facility] CONVERSIONS Dental, Provider, DDS Social History Tobacco [...]
== END 2025-06-19 10:37 | disposition home or self-care (01) ==
LOC: HO.HMCH 09:23
PROVIDERS: PCP Internal Medicine; Visit Provider Internal Medicine
DX: E78.00 Pure hypercholesterolemia, unspecified (principal); M51.369 Other intervertebral disc degeneration, lumbar region without mention of lumbar back pain or lower extremity pain; E66.9 Obesity, unspecified; Z68.31 Body mass index [BMI] 31.0-31.9, adult; M54.16 Radiculopathy, lumbar region; E55.9 Vitamin D deficiency, unspecified; M79.7 Fibromyalgia; G47.00 Insomnia, unspecified; F43.10 Post-traumatic stress disorder, unspecified; F41.9 Anxiety disorder, unspecified; F32.9 Major depressive disorder, single episode, unspecified

== ENCOUNTER → 2025-06-19 09:22 | Outpatient (BNVA) | payer OTHER, SELFPAY | PROVIDERS: PCP Internal Medicine; Visit Provider Internal Medicine | DX: M51.369 Other intervertebral disc degeneration, lumbar region without mention of lumbar back pain or lower extremity pain (principal); M54.16 Radiculopathy, lumbar region; E78.00 Pure hypercholesterolemia, unspecified; E55.9 Vitamin D deficiency, unspecified; M79.7 Fibromyalgia; G47.00 Insomnia, unspecified; F43.10 Post-traumatic stress disorder, unspecified; F41.9 Anxiety disorder, unspecified; F32.9 Major depressive disorder, single episode, unspecified; E66.9 Obesity, unspecified; Z68.31 Body mass index [BMI] 31.0-31.9, adult; Z79.899 Other long term (current) drug therapy | CPT/HCPCS: 99212 ==

== ENCOUNTER 2025-06-20 06:41 | Outpatient (REF) | payer OTHER, SELFPAY ==
--- OUTSIDE RECORDS SUMMARY | 2025-06-20 06:44 | XMS_ITS | Clinical Summary ---
Author Organization [employer] [facility] Address [address] [place] [address] Care Team Providers Care Propeller Driven Airplane Mechanic Name Role Phone Unavailable Primary Care Provider [...]
--- OUTSIDE RECORDS SUMMARY | 2025-06-20 06:44 | XMS_ITS | Encounter Summary ---
Author Organization [employer] [facility] Address [address] [place] [address] Care Team Providers Care Copra Processor Name Role Phone Unavailable Primary Care Provider Unavailabl e Encounter Details Date Type Department Care Team (Latest Contact Info) Description 11/05/2021 Abstract [facility] CONVERSIONS Dental, Provider, DDS Social History [...]
--- OUTSIDE RECORDS SUMMARY | 2025-06-20 06:44 | XMS_ITS | Clinical Summary ---
Author Organization [facility] Address [address] [place] [address] Care Team Providers Care Dramatic Art Teacher Name Role Phone Unavailable Primary Care Provider [...] Last Done Comments Breast Cancer Screening 1974 Colorectal Cancer Screening: Colonoscopy 1974 DTaP,Tdap,and Td Vaccines (1 - Tdap) 1993 Hepatitis B Vaccines (1 of 3 - 19+ 3-dose series) 1993 Cervical Cancer Screening: P ap Smear 1995 HIV Screening 09/24/2023 Hepatitis C Screening 09/24/2023 Social Influencers of Health Screening 09/24/2023 Depression Screening 08/30/2024 Pneumococcal Vaccine: 50+ Ye ars (1 of 1 - PCV) 2024 Zoster Vaccines (1 of 2) 2024 COVID-19 Vaccine (1 - 2023-2 5 season) 2025 Influenza Vaccine (#1) 2025 RSV Immunization Adult Patie nts (1 - 1-dose 75+ series) 2049 HIB [...]
--- OUTSIDE RECORDS SUMMARY | 2025-06-20 06:44 | XMS_ITS | Encounter Summary ---
Author Organization [employer] [facility] Address [address] [place] [address] Care Team Providers Care Community Development Worker Name Role Phone Unavailable Primary Care Provider Unavailabl e Encounter Details Date Type Department Care Team (Latest Contact Info) Description 12/13/2018 Abstract [facility] CONVERSIONS Dental, Provider, DDS Social History Tobacco [...]
[2025-06-20 07:02] LABS: MANUAL DIFF FLAG NO
[2025-06-20 07:47] LABS: Appearance Urine Clear; Glucose Urine UA Negative (Negative); PH 6.0 (5.0-9.0); Specific Gravity - Urine 1.020 (1.005-1.025); UMIC TRIGGER UACC YES
[2025-06-20 07:47] LABS: Hematocrit 42.1 % (37.0-47.0); Hemoglobin 13.4 g/dl (12.0-16.0); Imm Gran Abs Auto 0.02 X10*3/uL (0.00-0.03); Imm Gran Pct Auto 0.4 % (0.0-0.4); Lymphocytes Absolute Auto 2.1 X10*3/uL (1.2-4.9); Mean Corpuscular HGB Conc 31.8 g/dl (31.0-35.0); Mean Corpuscular Hemoglobin 28.2 pg (27.0-33.0); Mean Corpuscular Volume 88.4 fL (80.0-98.0); NRBC Abs Auto 0.000 X10*3/uL (0.0-0.012); NRBC Pct Auto 0.0 /100WBC (0.0-0.2); Platelet Count 274 X10*3/uL (160-400); Red Blood Count 4.76 X10*6/uL (4.20-5.50); White Blood Count 5.4 X10*3/uL (4.8-10.8)
[2025-06-20 07:49] LABS: UACC Culture Trigger YES
[2025-06-20 08:26] LABS: Alanine Aminotransferase 35 U/L (0-31); Albumin Level 4.3 g/dL (3.5-5.0); Alkaline Phosphatase 79 U/L (39-117); Anion Gap 10 (12-20); Aspartate Amino Transferase 25 U/L (5-31); Blood Urea Nitrogen 17 mg/dL (9-16); Calcium 9.2 mg/dL (8.4-10.2); Carbon Dioxide 26 mmol/L (22-29); Chloride 112 mmol/L (96-108); Cholesterol 205 mg/dL (<200); Estimated Glomerular Filt Rate > 60; HDL Cholesterol 63 mg/dL (>40); Potassium 4.2 mmol/L (3.3-5.1); Sodium 144 mmol/L (135-145); Total Protein 6.7 g/dL (6.5-8.0); Triglycerides 97 mg/dL (<150)
[2025-06-20 09:13] LABS: Folate 7.7 ng/mL (> or = 4.0); Vitamin B12 313 pg/mL (200-900)
== END 2025-06-20 06:42 | disposition home or self-care (01) ==
LOC: HO.LAB 06:41
PROVIDERS: PCP Internal Medicine; Visit Provider Internal Medicine
DX: E53.8 Deficiency of other specified B group vitamins (principal); D64.9 Anemia, unspecified; M79.7 Fibromyalgia; E55.9 Vitamin D deficiency, unspecified; E78.00 Pure hypercholesterolemia, unspecified
CPT/HCPCS: 20610; 36415; 80053; 80061; 81001; 82306; 82607; 82746; 84443; 85025; 85652; 86140; 87086; 99212; J2003; J3301

== ENCOUNTER 2025-06-20 07:36 | Outpatient (AMB) | payer OTHER, SELFPAY ==
[2025-06-20 08:16] VITALS: BP 120/72; BMI 31.3
--- NOTE | 2025-06-20 08:16 | A.OFFVIS_ITS ---
Vital Signs 06/20/25 08:16 Height 5 ft 7 in Weight 199 lb 11.821 oz BMI 31.3 BP 120/72 Blood Pressure Location Lt brachial Position Sitting Intake Visit Reasons: shoulder pain Intake Note: Patient presents for bilateral shoulder pain follow up. Well Flow Operator Required: No Well Flow Operator Services: Well Flow Operator Offered & Declined Information Interpreted: non-clinical & clinical Accompanied by: Self / Same As Patient Allergies tramadol (From ULTRAM) Allergy (Severe, Verified 06/20/25 08:21) ANAPHYLAXIS Medication List - Last Reconciled 06/20/25 by Haven Amezquita MD cyclobenzaprine 5 mg PO Q8H PRN diclofenac potassium 50 mg PO BID PRN diclofenac sodium 1% (Arthritis Pain (diclofenac)) 2 grams topical QID PRN docusate sodium (Colace) 100 mg PO BID lidocaine 5% (Lidoderm) 1 patch topical NEEDED PRN oxycodone 5 mg PO Q8H PRN HPI Comments Details: Patient is a 49-year-old female with depression and a diagnosis of fibromyalgia here today for follow up Interval History: Patient last seen 01/05/25 with me - On amitriptyline 100mg every night, cyclobenzaprine 10mg tid - Today she is complaining of bilateral shoulder pain - Also complaining of numbness and tingling to the left hand she is concerned that she may have carpal tunnel in her left hand as well as her right - Received steroid injection of bilateral subacromial bursa Today - On amitriptyline 100mg every night, cyclobenzaprine 10mg tid - Shoulder injections helped for about 4 months, but had return of pain about 1 month ago - Bilateral hands still with numbness and tingling Rheumatologic History: Diagnosed with fibromyalgia and OA involving the AC joint and L spine Current Rheumatology Medication(s): Amitriptyline 100 mg every night Cyclobenzaprine 10 mg 3 times a day p.r.n. Diclofenac 1% topical PFSH Medical History Osteoarthritis Arthritis Trochanteric bursitis, right hip Lumbar degenerative disc disease Carpal tunnel syndrome of right wrist Rotator cuff injury Low back pain Lower extremity pain, bilateral Tinea corporis Obesity (BMI 30-39.9) Depression Anxiety Posttraumatic stress disorder Insomnia Fibromyalgia Vitamin D deficiency Pure hypercholesterolemia Surgical History History of back surgery History of facial surgery H/O unilateral salpingectomy History of cholecystectomy History of section Family History Father Alcohol abuse Mother Asthma Chronic mental illness Mental health disorder Social History Housing: Apartment Are you a primary rn intensive care unit to a significant other at home: No Do you presently have visiting nurse or other home services: No Alcohol intake: never Patient Tobacco Use Status: Never used Tobacco e-Cigarette/Vaping Use: Never Used Second Hand Smoke Exposure: No service: No Current occupational status: retired Cognitive needs: No Hearing needs: No Vision needs: Yes (Glasses) Female Reproductive History Menstrual Age of Menarche: 11 Review of Systems Narrative Review of Systems Constitutional: Denies fever, chills, weight loss ENT: Denies vision changes, eye pain or eye redness, dental caries, dry mouth GI: Denies nausea, vomiting, diarrhea, abdominal pain, change in BM Pulm: Denies SOB, JOSEPH, hemoptysis, wheezing Cards: Denies chest pain, palpitations Skin: Denies Raynaud's, rash, nail changes, photosensitivity, [employer]: Denies headaches, weakness, paresthesias, recurrent falls MSK: as per HPI All other systems reviewed and are unremarkable except noted above Physical Exam Exam Exam: Vital signs reviewed Physical Examination CONSTITUITIONAL Patient alert and cooperative. Well appearing and in no apparent painful distress MSK Hands * Right Hand: Able to make a fist. No swelling or tenderness to palpation of the MCPs, PIPs or DIPs. * Left Hand: Able to make a fist. No swelling or tenderness to palpation of the MCPs, PIPs or DIPs. * Herbedens nodes noted bilaterally Wrists * Right Wrist: Full ROM to flexion and extension. No swelling or TTP * Left Wrist: Full ROM to flexion and extension. No swelling or TTP Elbows * Right Elbow: Full ROM. No swelling or TTP. No TTP of the medial epicondyle. No TTP of the lateral epicondyle * Left Elbow: Full ROM. No swelling or TTP. No TTP of the medial epicondyle. No TTP of the lateral epicondyle Shoulders * Right shoulder: No swelling noted. No TTP of the AC joint. TTP of the subacromial bursa. No TTP of the posterior shoulder * Left shoulder: No swelling noted. No TTP of the AC joint. TTP of the subacromial bursa. No TTP of the posterior shoulder * Decreased ROM bilaterally Knees * Right knee: No swelling noted. No TTP of the knee joint line. No TTP of pes anserine bursa * Left knee: No swelling noted. No TTP of the knee joint line. No TTP of pes anserine bursa. * Crepitations felt bilaterally Ankles * Right ankle: Good ankle dorsiflexion and plantar flexion. No swelling. No TTP of the ankle joint * Left ankle: Good ankle dorsiflexion and plantar flexion. No swelling. No TTP of the ankle joint Feet * Right foot: Negative squeeze test * Left foot: Negative squeeze test Vital Signs: Last Vital Signs BP 120/72 06/20/25 08:16 BMI result Body Mass Index 31.3 Office Procedures AMB Joint Injection/Aspiration Joint Injection/Aspiration Details: Procedure was explained to the patient and informed consent was obtained. ? Risks associated with the procedure were discussed with the patient including but not limited to bleeding, infection, drug reactions and reactions to the topical anesthetic. Patient made aware of signs to look out for infectious complications. The area of interest was identified and confirmed with patient. ?This was subsequently cleaned with chlorhexidine x 2. ? The area was then anesthetized using ethyl chloride spray. 40 mg Kenalog with 1 cc 1% lidocaine was injected without issue. ?Minimal to no bleeding. ?Patient tolerated procedure. Primary Site: right shoulder Prep: site was prepped using aseptic technique and ethochloride spray was applied Injected: 40 mg of, Kenalog, with 1 mL of, 1% plain lidocaine and in the subcromial space Procedure: The patient tolerated the procedure well Coding 99003 - Glenohumeral/Tronchanteric Bursa/Intraarticular Procedure code (CPT) selection complete AMB Joint Injection/Aspiration Joint Injection/Aspiration Details: Procedure was explained to the patient and informed consent was obtained. ? Risks associated with the procedure were discussed with the patient including but not limited to bleeding, infection, drug reactions and reactions to the topical anesthetic. Patient made aware of signs to look out for infectious complications. The area of interest was identified and confirmed with patient. ?This was subsequently cleaned with chlorhexidine x 2. ? The area was then anesthetized using ethyl chloride spray. 40 mg Kenalog with 1 cc 1% lidocaine was injected without issue. ?Minimal to no bleeding. ?Patient tolerated procedure. Primary Site: left shoulder Prep: site was prepped using aseptic technique and ethochloride spray was applied Injected: 40 mg of, Kenalog, with 1 mL of, 1% plain lidocaine and in the subcromial space Procedure: The patient tolerated the procedure well Coding 86367 - Glenohumeral/Tronchanteric Bursa/Intraarticular Procedure code (CPT) selection complete Office Meds lidocaine (PF) 10 mg/mL (1 %) injection solution Performing Provider: Haven Amezquita MD Performing Location: [facility] [place] [facility] Administered by: Isabel Groves RN on 06/20/25 09:08 Dose Route Admin Location Dispensed Lot Number Expiration Date [facility] Human Resources Coordinator 1 mL intrabursal right subacromial bursa 2 mL [id number] 01/27/27 [phone] [employer] Total Dispensed Waste 2 mL 50 % Kenalog 40 mg/mL suspension for injection Performing Provider: Haven Amezquita MD Performing Location: [facility] [place] [facility] Administered by: Isabel Groves RN on 06/20/25 09:08 Dose Route Admin Location Dispensed Lot Number Expiration Date [facility] Human Resources Coordinator 40 mg intrabursal right subacromial bursa 1 mL [id number] 02/26/27 70 [phone] [employer] Total Dispensed Waste 1 mL 0 % lidocaine (PF) 10 mg/mL (1 %) injection solution Performing Provider: Haven Amezquita MD Performing Location: [facility] [place] [facility] Administered by: Isabel Groves RN on 06/20/25 09:08 Dose Route Admin Location Dispensed Lot Number Expiration Date [facility] Human Resources Coordinator 1 mL intrabursal left subacromial bursa 2 mL [id number] 01/27/27 [phone] [employer] Total Dispensed Waste 2 mL 50 % Kenalog 40 mg/mL suspension for injection Performing Provider: Haven Amezquita MD Performing Location: [facility] [place] [facility] Administered by: Isabel Groves RN on 06/20/25 09:08 Dose Route Admin Location Dispensed Lot Number Expiration Date [facility] Human Resources Coordinator 40 mg intrabursal left subacromial bursa 1 mL [id number] 02/26/27 [phone] [employer] Total Dispensed Waste 1 mL 0 % Results Reviewed Results Reviewed: Laboratory Tests 06/20/25 07:00 WBC 5.4 RBC 4.76 Hgb 13.4 Hct 42.1 Plt Count 274 ESR 5 Sodium 144 Potassium 4.2 Chloride 112 H Carbon Dioxide 26 BUN 17 H Creatinine 0.82 AST 25 ALT 35 H C-Reactive Protein 0.13 25-OH Vitamin D Total 15.2 L EMG 01/2025 FINDINGS: Interlatency difference between left median and radial sensory nerves was 0.5. All other motor and sensory nerves tested showed normal latencies, amplitudes and conduction velocities. Concentric needle EMG was performed in selected muscles of the left upper extremity. Study did not reveal signs of electric abnormalities as shown in the table above. IMPRESSION: 1. There is electrodiagnostic evidence for left borderline/very mild median neuropathy at the wrist, could still be consistent with carpal tunnel syndrome. 2. There is no electrodiagnostic evidence for ulnar neuropathy, brachial plexopathy, or cervical radiculopathy. XR Right Shoulder 02/2022 FINDINGS: Mild subchondral erosive changes right AC joint. Minimal inferior glenohumeral joint loose body is seen as well. No visible acute fracture, spurring, dislocation or soft tissue calcification. XR/XR shoulder RT min 2V IMPRESSION: Mild degenerative changes right AC joint and right glenohumeral joint. MRI Right Shoulder 05/2023 FINDINGS: ROTATOR CUFF: [id number] generalized rotator cuff tendinosis. No tendon tears. No muscle atrophy or fatty infiltration. BICEPS: Normal. CORACOACROMIAL ARCH: The undersurface of the acromion is curved with no subacromial spur. There is moderate acromioclavicular osteoarthritis with distal clavicular osteolysis and marked subchondral marrow edema of both the distal clavicle and acromion. Mild adjacent subacromial subdeltoid bursitis. LABRUM/CAPSULE: The glenoid labrum is diminutive diffusely, most consistent with a combination of labral degeneration and normal variation. This is most pronounced inferiorly. No discrete tears. Joint capsule is unremarkable. GLENOHUMERAL JOINT/MARROW: Small marginal osteophytes at the and humeral joint. Mild marrow edema signal in the glenoid osteophytes posteriorly and inferiorly. No fracture or malalignment. No joint effusion. A 5 x 5 x 2 mm low signal intensity chondral loose body is present in the axillary pouch. IMPRESSION: 1. Moderate acromioclavicular osteoarthritis with distal clavicular osteolysis and mild underlying subacromial subdeltoid bursitis. 2. [id number] generalized rotator cuff tendinosis. No tears. 3. Mild glenohumeral osteoarthritis with a 5 mm chondral loose body in the axillary pouch. Assessment & Plan Assessment & Plan (1) Bilateral carpal tunnel syndrome: Code(s): G56.03 - Carpal tunnel syndrome, bilateral upper limbs Plan: #Bilateral Carpal Tunnel Syndrome Patient is a 49-year-old female with fibromyalgia here today for follow up. EMG of the left upper extremity shows mild left carpal tunnel indicating that she has bilateral carpal tunnel. I discussed treatment options including conservative measures with wrist splinting, which has not been working. Will schedule for steroid injection Plan - US guided steroid injection of the left wrist (2) Subacromial bursitis of both shoulders: Code(s): M75.51 - Bursitis of right shoulder; M75.52 - Bursitis of left shoulder Plan: #Subacromial bursitis of bilat shoulders Patient with tenderness to palpation of bilateral subacromial bursa now status post steroid injection today. Plan - RTC 4 months for re eval Plan I spent 20 minutes reviewing the record and labs, taking a history, examining the patient, discussing the treatment plan, ordering diagnostic work up and documenting in the medical record Orders: Orders AMB Joint Injection/Aspiration 06/20/25 M75.50 - Bursitis of unspecified shoulder AMB Joint Injection/Aspiration 06/20/25 M75.50 - Bursitis of unspecified shoulder Coding Level of Care Code Est Pt Level 3 (67101) Diagnoses Bilateral carpal tunnel syndrome G56.03 Subacromial bursitis of both shoulders M75.51; M75.52 CPT Codes Coding - Joint 7: 43043 - Glenohumeral/Tronchanteric Bursa/Intraarticular ([id number]) Coding - Joint 7: 91724 - Glenohumeral/Tronchanteric Bursa/Intraarticular ([id number])
== END 2025-06-20 08:58 | disposition home or self-care (01) ==
LOC: HO.RHES 07:37
PROVIDERS: PCP Internal Medicine; Visit Provider Student in an Organized Health Care Education/Training Program
DX: M75.51 Bursitis of right shoulder (principal); M75.52 Bursitis of left shoulder
CPT/HCPCS: 20610; 99213

== ENCOUNTER 2025-07-06 08:00 | Outpatient (REF) | payer OTHER, SELFPAY ==
--- OUTSIDE RECORDS SUMMARY | 2025-07-23 10:20 | XMS_ITS | Encounter Summary ---
Author Organization [employer] [facility] Address [address] [place] [address] Care Team Providers Care Customer Project Manager Name Role Phone Unavailable Primary Care Provider Unavailabl e Encounter Details Date Type Department Care Team (Latest Contact Info) Description 12/13/2018 Abstract [facility] CONVERSIONS Dental, Provider, DDS Social [...]
--- OUTSIDE RECORDS SUMMARY | 2025-07-23 10:20 | XMS_ITS | Encounter Summary ---
Author Organization [facility] [facility] Address [address] [place] [address] Care Team Providers Care Box Nailer Name Role Phone Unavailable Primary Care Provider Unavailabl e Encounter Details Date Type Department Care Team (Latest Contact Info) Description 11/05/2021 Abstract [facility] CONVERSIONS Dental, Provider, DDS Social [...]
--- OUTSIDE RECORDS SUMMARY | 2025-07-23 10:20 | XMS_ITS | Clinical Summary ---
Author Organization [employer] [facility] Address [address] [place] [address] Care Team Providers Care Hog Slaughterer Name Role Phone Unavailable Primary Care Provider [...]
== END 2025-07-06 08:01 | disposition home or self-care (01) ==
LOC: HO.RHESR 08:00
PROVIDERS: Visit Provider Student in an Organized Health Care Education/Training Program
DX: G56.02 Carpal tunnel syndrome, left upper limb (principal)
CPT/HCPCS: 76942

== ENCOUNTER 2025-07-06 14:22 | Outpatient (AMB) | payer OTHER, SELFPAY ==
--- NOTE | 2025-07-06 15:07 | A.OFFVIS_ITS ---
Vital Signs 07/06/25 15:22 Height 5 ft 7 in Weight 200 lb 13.458 oz BMI 31.5 BP 132/80 Blood Pressure Location Rt brachial Position Sitting Pulse 59 Pulse Source Pulse Oximeter Pulse Oximetry (%) 97 Oxygen Delivery Method Room Air Intake Visit Reasons: left carpal tunnel ultrasound injection Intake Note: Patient presents for left carpal tunnel ultrasound injection follow up. Provider Relations Coordinator Required: Yes Provider Relations Coordinator Services: Provider Relations Coordinator Offered & Declined Information Interpreted: non-clinical & clinical Allergies tramadol (From ULTRAM) Allergy (Severe, Verified 07/06/25 15:18) ANAPHYLAXIS HPI Comments Details: Patient is a 49-year-old female with depression and a diagnosis of fibromyalgia here today for follow up Interval History: Patient last seen 06/20/25 with me - On amitriptyline 100mg every night, cyclobenzaprine 10mg tid - Shoulder injections helped for about 4 months, but had return of pain about 1 month ago - Bilateral hands still with numbness and tingling - Gave another course of steroid injections to bilateral shoulders - EMG cvonfirmed CTS, failed splinting recommended steroid injection Today - On amitriptyline 100mg every night, cyclobenzaprine 10mg tid - Here for left CTS steroid injection - Left shoulder doing well - Right shoulder started hurting again 3 days ago Rheumatologic History: Diagnosed with fibromyalgia and OA involving the AC joint and L spine Current Rheumatology Medication(s): Amitriptyline 100 mg every night Cyclobenzaprine 10 mg 3 times a day p.r.n. Diclofenac 1% topical PFSH Medical History Osteoarthritis Arthritis Trochanteric bursitis, right hip Lumbar degenerative disc disease Carpal tunnel syndrome of right wrist Rotator cuff injury Low back pain Lower extremity pain, bilateral Tinea corporis Obesity (BMI 30-39.9) Depression Anxiety Posttraumatic stress disorder Insomnia Fibromyalgia Vitamin D deficiency Pure hypercholesterolemia Surgical History History of back surgery History of facial surgery H/O unilateral salpingectomy History of cholecystectomy History of section Family History Father Alcohol abuse Mother Asthma Chronic mental illness Mental health disorder Social History (Reviewed 07/06/25 @ 15:22 by OSMANI Lott Housing: Apartment Are you a primary patient care coordinator to a significant other at home: No Do you presently have visiting nurse or other home services: No Alcohol intake: never Patient Tobacco Use Status: Never used Tobacco e-Cigarette/Vaping Use: Never Used Second Hand Smoke Exposure: No service: No Current occupational status: retired Cognitive needs: No Hearing needs: No Vision needs: Yes (Glasses) Female Reproductive History Menstrual Age of Menarche: 11 Review of Systems Narrative Review of Systems Constitutional: Denies fever, chills, weight loss ENT: Denies vision changes, eye pain or eye redness, dental caries, dry mouth GI: Denies nausea, vomiting, diarrhea, abdominal pain, change in BM Pulm: Denies SOB, JOSEPH, hemoptysis, wheezing Cards: Denies chest pain, palpitations Skin: Denies Raynaud's, rash, nail changes, photosensitivity, [employer]: Denies headaches, weakness, paresthesias, recurrent falls MSK: as per HPI All other systems reviewed and are unremarkable except noted above Physical Exam Exam Exam: Vital signs reviewed Physical Examination CONSTITUITIONAL Patient alert and cooperative. Well appearing and in no apparent painful distress MSK Hands * Right Hand: Able to make a fist. No swelling or tenderness to palpation of the MCPs, PIPs or DIPs. * Left Hand: Able to make a fist. No swelling or tenderness to palpation of the MCPs, PIPs or DIPs. * Herbedens nodes noted bilaterally Wrists * Right Wrist: Full ROM to flexion and extension. No swelling or TTP * Left Wrist: Full ROM to flexion and extension. No swelling or TTP Elbows * Right Elbow: Full ROM. No swelling or TTP. No TTP of the medial epicondyle. No TTP of the lateral epicondyle * Left Elbow: Full ROM. No swelling or TTP. No TTP of the medial epicondyle. No TTP of the lateral epicondyle Shoulders * Right shoulder: No swelling noted. No TTP of the AC joint. TTP of the subacromial bursa. No TTP of the posterior shoulder * Left shoulder: No swelling noted. No TTP of the AC joint. TTP of the subacromial bursa. No TTP of the posterior shoulder * Decreased ROM bilaterally Knees * Right knee: No swelling noted. No TTP of the knee joint line. No TTP of pes anserine bursa * Left knee: No swelling noted. No TTP of the knee joint line. No TTP of pes anserine bursa. * Crepitations felt bilaterally Ankles * Right ankle: Good ankle dorsiflexion and plantar flexion. No swelling. No TTP of the ankle joint * Left ankle: Good ankle dorsiflexion and plantar flexion. No swelling. No TTP of the ankle joint Feet * Right foot: Negative squeeze test * Left foot: Negative squeeze test Vital Signs: Last Vital Signs Pulse 59 07/06/25 15:22 BP 132/80 07/06/25 15:22 Pulse Ox 97 07/06/25 15:22 Oxygen Delivery Method Room Air 07/06/25 15:22 BMI result Body Mass Index 31.5 Office Procedures AMB Joint Injection/Aspiration Joint Injection/Aspiration Details: Date: 07/06/25 Study Type: Limited Ultrasound with Guidance of needle placement Indication: Numbness in left hand Study Site: Left Wrist Equipment: [place] Findings: Orthogonal views of the dorsal aspect of the left wrist were obtained in grayscale and Doppler. Procedure: Dorsal trans view of the left wrist showed the median nerve, with increased diameter by 0.15cm2 Procedure was explained to the patient and informed consent was obtained for ultrasound-guided glucocorticoid injection of the left wrist Risks associated with the procedure were discussed with the patient including but not limited to bleeding, infection, drug reactions and reactions to the topical anesthetic. Patient made aware of signs to look out for infectious complications. The left wrist was sterilely prepped with chlorhexidine and anesthetized with lidocaine spray. A 22 gauge 1.5 in needle was advanced into the left wrist under direct ultrasound visualization using in plane technique. 40 mg of Kenalog with 1cc 1% Lidocaine was injected. The procedure was well tolerated. Post procedure patient had 1 episode of vomiting and lightheadedness. Transient Impressions: Elevated median nerve diameter consistent with carpal tunnel syndrome Successful injection of the left wrist using ultrasound guidance Primary Site: other (left wrist (carpal tunnel)) Prep: site was prepped using sterile technique and ethochloride spray was applied Injected: 40 mg of, Kenalog, with 1 mL of and 1% plain lidocaine Procedure: The patient tolerated the procedure well Coding Additional procedure code (CPT) needed (63797 + 00590) Office Meds lidocaine (PF) 10 mg/mL (1 %) injection solution Performing Provider: Haven Amezquita MD Performing Location: [facility] Administered by: Haven Amezquita MD on 07/06/25 16:19 Dose Route Admin Location Dispensed Lot Number Expiration Date [facility] Lead Pressman 1 mL perineural injection left wrist 2 mL [id number] 12/28/26 21343-8 92-04 [employer] Total Dispensed Waste 2 mL 50 % Kenalog 40 mg/mL suspension for injection Performing Provider: Haven Amezquita MD Performing Location: [facility] Administered by: Haven Amezquita MD on 07/06/25 16:19 Dose Route Admin Location Dispensed Lot Number Expiration Date [facility] Lead Pressman 40 mg perineural injection left wrist 1 mL [id number] 01/28/27 56216- 1049-1 [employer] Total Dispensed Waste 1 mL 0 % Results Reviewed Results Reviewed: Laboratory Tests 06/20/25 07:00 WBC 5.4 RBC 4.76 Hgb 13.4 Hct 42.1 Plt Count 274 ESR 5 Sodium 144 Potassium 4.2 Chloride 112 H Carbon Dioxide 26 BUN 17 H Creatinine 0.82 AST 25 ALT 35 H C-Reactive Protein 0.13 25-OH Vitamin D Total 15.2 L EMG 01/2025 FINDINGS: Interlatency difference between left median and radial sensory nerves was 0.5. All other motor and sensory nerves tested showed normal latencies, amplitudes and conduction velocities. Concentric needle EMG was performed in selected muscles of the left upper extremity. Study did not reveal signs of electric abnormalities as shown in the table above. IMPRESSION: 1. There is electrodiagnostic evidence for left borderline/very mild median neuropathy at the wrist, could still be consistent with carpal tunnel syndrome. 2. There is no electrodiagnostic evidence for ulnar neuropathy, brachial plexopathy, or cervical radiculopathy. XR Right Shoulder 02/2022 FINDINGS: Mild subchondral erosive changes right AC joint. Minimal inferior glenohumeral joint loose body is seen as well. No visible acute fracture, spurring, dislocation or soft tissue calcification. XR/XR shoulder RT min 2V IMPRESSION: Mild degenerative changes right AC joint and right glenohumeral joint. MRI Right Shoulder 05/2023 FINDINGS: ROTATOR CUFF: [id number] generalized rotator cuff tendinosis. No tendon tears. No muscle atrophy or fatty infiltration. BICEPS: Normal. CORACOACROMIAL ARCH: The undersurface of the acromion is curved with no subacromial spur. There is moderate acromioclavicular osteoarthritis with distal clavicular osteolysis and marked subchondral marrow edema of both the distal clavicle and acromion. Mild adjacent subacromial subdeltoid bursitis. LABRUM/CAPSULE: The glenoid labrum is diminutive diffusely, most consistent with a combination of labral degeneration and normal variation. This is most pronounced inferiorly. No discrete tears. Joint capsule is unremarkable. GLENOHUMERAL JOINT/MARROW: Small marginal osteophytes at the and humeral joint. Mild marrow edema signal in the glenoid osteophytes posteriorly and inferiorly. No fracture or malalignment. No joint effusion. A 5 x 5 x 2 mm low signal intensity chondral loose body is present in the axillary pouch. IMPRESSION: 1. Moderate acromioclavicular osteoarthritis with distal clavicular osteolysis and mild underlying subacromial subdeltoid bursitis. 2. Jfhi-af-bhlqytgl generalized rotator cuff tendinosis. No tears. 3. Mild glenohumeral osteoarthritis with a 5 mm chondral loose body in the axillary pouch. Assessment & Plan Assessment & Plan (1) Bilateral carpal tunnel syndrome: Code(s): G56.03 - Carpal tunnel syndrome, bilateral upper limbs Plan: #Bilateral Carpal Tunnel Syndrome Patient is a 49-year-old female with fibromyalgia here today for follow up. s/p left carpal tunnel injection today Plan - s/p US guided carpal tunnel steroid injection today - RTC 4 months (2) Vasovagal episode: Code(s): R55 - Syncope and collapse Plan: #Vasovagal episode Patient had vasovagal episode post procedure with vomiting. Responded well to vagal maneuvers such as a wet cloth on her head and cold water. Patient returned to baseline after the episode which lasted about 5-10 minutes Plan I spent 30 minutes reviewing the record and labs, taking a history, examining the patient, Post procedural interventions with patient and documenting in the medical record Orders: Orders AMB Joint Injection/Aspiration Today G56.02 - Carpal tunnel syndrome, left upper limb Coding Level of Care Code Est Pt Level 4 (70023) Diagnoses Bilateral carpal tunnel syndrome G56.03 Vasovagal episode R55
[2025-07-06 15:22] VITALS: BP 132/80; PULSE 59; O2SAT 97; BMI 31.5
--- OUTSIDE RECORDS SUMMARY | 2025-07-06 16:05 | XMS_ITS | Encounter Summary ---
Author Organization [facility] Address [address] [place] [address] Care Team Providers Care Net Washer Name Role Phone Unavailable Primary Care Provider Unavailabl e Encounter Details Date Type Department Care Team (Latest Contact Info) Description 11/05/2021 Abstract [facility] CONVERSIONS Dental, Provider, DDS Social History [...]
--- OUTSIDE RECORDS SUMMARY | 2025-07-06 16:05 | XMS_ITS | Clinical Summary ---
Author Organization [facility] ity Address [address] [place] [address] Care Team Providers Care Superintendent Pier Name Role Phone Unavailable Primary Care Provider [...]
--- OUTSIDE RECORDS SUMMARY | 2025-07-06 16:05 | XMS_ITS | Encounter Summary ---
Author Organization [facility] Address [address] [place] [address] Care Team Providers Care Continuous Conveyor Screen Drier Name Role Phone Unavailable Primary Care Provider Unavailabl e Encounter Details Date Type Department Care Team (Latest Contact Info) Description 12/13/2018 Abstract [facility] CONVERSIONS Dental, Provider, DDS Social [...]
--- OUTSIDE RECORDS SUMMARY | 2025-07-06 16:05 | XMS_ITS | Clinical Summary ---
Author Organization [employer] [facility] Address [address] [place] [address] Care Team Providers Care Furniture Dipper Name Role Phone Unavailable Primary Care Provider [...]
== END 2025-07-06 16:28 | disposition home or self-care (01) ==
LOC: HO.RHES 14:23
PROVIDERS: PCP Internal Medicine; Visit Provider Student in an Organized Health Care Education/Training Program
DX: G56.03 Carpal tunnel syndrome, bilateral upper limbs (principal); R55 Syncope and collapse; G56.02 Carpal tunnel syndrome, left upper limb
CPT/HCPCS: 99214

== ENCOUNTER → 2025-07-06 14:22 | Outpatient (BNVA) | payer OTHER, SELFPAY | PROVIDERS: PCP Internal Medicine; Visit Provider Student in an Organized Health Care Education/Training Program | DX: G56.03 Carpal tunnel syndrome, bilateral upper limbs (principal); R55 Syncope and collapse | CPT/HCPCS: 20526; 99212; J2003; J3301 ==

== ENCOUNTER 2025-07-17 10:09 | Outpatient (REF) | payer OTHER, SELFPAY ==
--- OUTSIDE RECORDS SUMMARY | 2025-07-18 01:47 | XMS_ITS | Clinical Summary ---
Author Organization [facility] ity Address [address] [place] [address] Care Team Providers Care Helper Animal Laboratory Name Role Phone Unavailable Primary Care Provider [...] of 2) 2024 COVID-19 Vaccine (1 - 2024-2 6 season) 2025 Influenza Vaccine (#1) 2025 RSV [...]
== END 2025-07-17 10:10 | disposition home or self-care (01) ==
LOC: HO.LNP 10:09
PROVIDERS: PCP Internal Medicine; Visit Provider Obstetrics & Gynecology
DX: Z01.419 Encounter for gynecological examination (general) (routine) without abnormal findings (principal); Z12.31 Encounter for screening mammogram for malignant neoplasm of breast; Z12.11 Encounter for screening for malignant neoplasm of colon; Z11.51 Encounter for screening for human papillomavirus (HPV)
CPT/HCPCS: 87626; 88175; 99396

== ENCOUNTER 2025-07-17 10:09 | Outpatient (AMB) | payer OTHER, SELFPAY ==
--- NOTE | 2025-07-17 10:24 | A.OFFVIS_ITS ---
Vital Signs 07/17/25 10:42 Height 5 ft 7 in Weight 195 lb BMI 30.5 BP 118/70 Intake Visit Reasons: annual Beam Press Operator Required: Yes Beam Press Operator Language: Talent Program Manager Services: Beam Press Operator Present (in person) Beam Press Operator Name: Tania HYMAN Information Interpreted: non-clinical & clinical Classification Case Manager: Classification Case Manager Present (Tania HYMAN) Accompanied by: Self / Same As Patient Allergies tramadol (From ULTRAM) Allergy (Severe, Verified 07/17/25 10:45) ANAPHYLAXIS Post menopausal: Yes HPI Comments Details: Presenting for annual exam. No complaints. Last Pap/HPV was negative in 12/16 Last Mammogram was BI-RADS 1 in 12/20 No previous screening colonoscopy PFSH Medical History Osteoarthritis Arthritis Trochanteric bursitis, right hip Lumbar degenerative disc disease Carpal tunnel syndrome of right wrist Rotator cuff injury Low back pain Lower extremity pain, bilateral Tinea corporis Obesity (BMI 30-39.9) Depression Anxiety Posttraumatic stress disorder Insomnia Fibromyalgia Vitamin D deficiency Pure hypercholesterolemia Surgical History History of back surgery History of facial surgery H/O unilateral salpingectomy History of cholecystectomy History of section Family History Father Alcohol abuse Mother Asthma Chronic mental illness Mental health disorder Social History Housing: Apartment Are you a primary director of health care marketing to a significant other at home: No Do you presently have visiting nurse or other home services: No Alcohol intake: never Patient Tobacco Use Status: Never used Tobacco e-Cigarette/Vaping Use: Never Used Second Hand Smoke Exposure: No service: No Current occupational status: retired Cognitive needs: No Hearing needs: No Vision needs: Yes (Glasses) Female Reproductive History Menstrual Age of Menarche: 11 Review of Systems Const All systems reviewed & are unremarkable except as noted in HPI and below Card Reports as per HPI Resp Reports as per HPI GI Reports as per HPI and Reports no additional complaints Reports as per HPI Physical Exam Vital Signs: Last Vital Signs BP 118/70 07/17/25 10:42 BMI result Body Mass Index 30.5 Const General: cooperative, healthy appearing and comfortable Chest Chest palpation & inspection: normal inspection of the chest and normal palpation of entire chest wall Breast/axilla inspection: normal inspection of the breasts and normal inspection of the axillae Breast/axilla palpation: normal palpation of the breasts, normal palpation of the axillae and no axillary lymphadenopathy Resp Effort & Inspection: normal respiratory effort Auscultation: clear to auscultation bilaterally Percussion: percussion normal Cardio Palpation: normal PMI Rate: regular rate Rhythm: regular rhythm Heart sounds: no murmurs and no rubs Peripheral pulses: Peripheral pulses 2+ throughout GI Inspection: Yes normal to inspection Palpation (GI): Soft to palpation, nontender, no guarding, not rigid and No hepatosplenomegaly present Percussion: Yes normal to percussion Auscultation: normal bowel sounds Rectal Exam - Female: deferred General: Yes bladder normal to palpation External Female Exam: No lesion Speculum Exam - Vagina: normal appearance of the vagina, normal palpation, normal vaginal discharge and not erythematous Speculum Exam - Cervix: normal appearance of the cervix and normal palpation Bimanual exam- vagina & uterus: normal bimanual exam, normal palpation, uterine size normal, bladder normal to palpation, consistency normal and normal palpation Bimanual Exam- Adnexa, other: normal adnexae, no masses and no tenderness Assessment & Plan Assessment & Plan (1) Well woman exam: Code(s): Z01.419 - Encounter for gynecological examination (general) (routine) without abnormal findings Category: Medical Plan: Cotesting done. Mammogram ordered. GI referral for screening colonoscopy placed Counseled the patient about the recommended dietary allowance of 1000 mg of Calcium & 600 IU of vitamin D. The patient was instructed to perform monthly self-breast exams and to schedule an annual exam in a year; All questions answered and the patient verbalized understanding. Instructed the patient to schedule annual exam in a year Orders: Orders MM tomosynthesis screening BI Today Z12.31 - Encounter for screening mammogram for malignant neoplasm of breast Referrals Gastroenterology Referral Z12.11 - Encounter for screening for malignant neoplasm of colon Coding Level of Care Code Est Pt Prev Care 40-64y(03495) Diagnoses Well woman exam Z01.419
[2025-07-17 10:42] VITALS: BP 118/70; BMI 30.5
== END 2025-07-17 10:57 | disposition home or self-care (01) ==
LOC: HO.HWS 10:09
PROVIDERS: PCP Internal Medicine; Visit Provider Obstetrics & Gynecology
DX: Z01.419 Encounter for gynecological examination (general) (routine) without abnormal findings (principal)
CPT/HCPCS: 99396; 99459